=== PATIENT | male | born 1950 | race Caucasian/White ===

== ENCOUNTER 2023-03-07 21:32 | Inpatient (IN) | payer MEDICARE, SELFPAY ==
[2023-03-07 21:37] VITALS: BP 186/68; PULSE 71; RESP 20; TEMP 36.3; O2SAT 92
--- NOTE | 2023-03-07 21:45 | DI.RAD_ITS ---
Exam(s) XR HIP LT COMPLETE AP PELVIS XR FEMUR LT EXAM: XR HIP LT COMPLETE AP PELVIS CLINICAL HISTORY: fall/fx. TECHNIQUE: 2D digital imaging was performed. Two views. COMPARISON: CR,XR XR FEMUR LT from 03/07/2023 FINDINGS: Femur films limited by overlying material. BONES: Intertrochanteric fracture of the left femur with mild displacement. No additional fractures. No bony destructive lesion is seen. JOINTS: No dislocation present. Hip joint spaces are maintained. Mild degenerative changes. The S I joints and pubic symphysis appear intact. SOFT TISSUE: No catheter projecting in the bladder. Vascular calcifications. IMPRESSION: Intertrochanteric fracture of the left femur. DATA REPOSITORY: RADIATION DOSE DELIVERED:
--- NOTE | 2023-03-07 22:20 | ED.GENADUL_ITS ---
HPI General Mode of arrival: EMS . Date/Time Provider Initiated Documentation: 03/07/23 21:44 . Limitations to Documentation: no limitations . Information obtained by: patient and EMS . History of Present Illness 72 year old M presents to the emergency department with the chief complaint of Left hip injury, described as severe, with intensity rated at 8. Quality is described as aching, and is localized to the left and lower extremity. Patient reports no radiation. Patient started experiencing this hour(s) (7) and it has been constant. Immobilization improves symptom(s), and Medication improves symptom(s), Movement worsens symptoms . Patient notes other (Left wrist pain). Patient did receive the following treatments prior to arrival, other (Worked up at [facility] ER) Related Data Home Medications Medication Instructions Recorded Confirmed amitriptyline 150 mg tablet 300 mg PO DAILY 03/07/23 03/07/23 atorvastatin 20 mg tablet 20 mg PO DAILY 03/07/23 03/07/23 blood sugar diagnostic (OneTouch 03/07/23 03/07/23 Verio test strips) budesonide 160 mcg-glycopyr 9 2 inh inhalation BID 03/07/23 03/07/23 mcg-formot 4.8 mcg/actuation HFA inhaler (Breztri Aerosphere) cyclobenzaprine 10 mg tablet 10 mg PO TID PRN 03/07/23 03/07/23 diltiazem HCl 240 mg capsule,24 240 mg PO DAILY 03/07/23 03/07/23 hr,extended release dulaglutide 0.75 mg/0.5 mL 0.75 mg subcut QWEEK 03/07/23 03/07/23 subcutaneous pen injector finasteride 5 mg tablet 5 mg PO DAILY 03/07/23 03/07/23 fluticasone propionate 50 1 spray intranasal DAILY 03/07/23 03/07/23 mcg/actuation nasal spray,suspension (Allergy Relief (fluticasone)) furosemide 40 mg tablet 40 mg PO DAILY 03/07/23 03/07/23 lisinopril 40 mg tablet 40 mg PO DAILY 03/07/23 03/07/23 metformin 1,000 mg tablet 1,000 mg PO BID 03/07/23 03/07/23 omeprazole 20 mg capsule,delayed 20 mg PO DAILY PRN 03/07/23 03/07/23 release tamsulosin 0.4 mg capsule 0.4 mg PO BID 03/07/23 03/07/23 tiotropium bromide 2.5 2 inh inhalation DAILY 03/07/23 03/07/23 mcg/actuation mist for inhalation (Spiriva Respimat) trazodone 50 mg tablet See Rx Instructions PO DAILY 03/07/23 03/07/23 Allergies Allergy/AdvReac Type Severity Reaction Status Date / Time duloxetine Allergy Verified 03/07/23 22:17 sertraline Allergy Verified 03/07/23 22:17 morphine AdvReac Verified 03/07/23 22:17 ivory soap AdvReac Uncoded 03/07/23 22:17 General Stated Complaint: Orthopedic KAMRAN: 3 Review of Systems Constitutional Constitutional: Denies fatigue, Denies headache(s) and Denies weakness Eyes Eyes: Denies change in vision ENT Ears, Nose, Mouth, and Throat: Denies headache(s) and Denies neck pain Cardiovascular Cardiovascular: Denies chest pain and Reports dyspnea (Chronic, COPD) Respiratory Respiratory: Reports dyspnea (Chronic, COPD) Gastrointestinal Gastrointestinal: Denies abdominal pain, Denies nausea and Denies vomiting Genitourinary Genitourinary: Denies difficulty urinating and Reports other (Patient with baseline indwelling Schilling catheter) Musculoskeletal Musculoskeletal: Reports deformity, Reports arthralgias, Denies neck pain, Denies numbness and Denies tingling Integumentary/Breasts Skin/Breast: Denies rash Neurologic Neurologic: Denies headache(s), Denies numbness, Denies tingling and Denies weakness Endocrine Endocrine: Denies fatigue Hematologic/Lymphatic Hematologic/Lymphatic: Denies easy bleeding and Denies easy bruising Exam Const General: cooperative, healthy appearing and in distress mild (Painful) Orientation: alert, awake and oriented x3 HENMT Head: normal to inspection, normocephalic and atraumatic Face and sinus: normal facial exam Mouth: moist mucous membranes Throat: posterior oropharynx normal Eyes Conjunctivae: conjunctivae normal Neck Neck: normal visual inspection, full ROM, trachea midline, supple and nontender Resp Effort & Inspection: normal respiratory effort and able to speak in complete sentences Auscultation: clear to auscultation bilaterally Cardio Rate: regular rate Rhythm: regular rhythm GI Palpation: soft, not firm, no guarding and nontender Back/Spine/Pelvis Back: No back tenderness Skin Rashes: rash noted Neuro General: patient alert, patient awake, patient oriented x3, moves all extremities and no focal motor deficits Cognition: normal cognition Speech: speech normal Sensory Exam: no sensory deficits noted Extrem General: capillary refill normal Elbow/forearm/wrist images: 2 1. Diffuse mild tenderness. Full range of motion. No bony point tenderness or deformity. Skin is intact. 2. Abrasion. Elbow otherwise unremarkable Other: Diffuse left hip pain to palpation. Skin is intact. The entire left leg is shortened and externally rotated. Normal pedal pulse and capillary refill. Knee is nontender. Psych Appearance: grossly normal Mental Status: mental status grossly normal Course Vital Signs Vital signs: Vital Signs Temperature 36.3 C L 03/07/23 21:37 Pulse 71 03/07/23 21:37 Respiratory Rate 20 03/07/23 21:37 Blood Pressure 186/68 H 03/07/23 21:37 Pulse Oximetry 92 03/07/23 21:37 Temperature 36.3 C L 03/07/23 21:37 Temperature Source Skin 03/07/23 21:37 Pulse 71 03/07/23 21:37 Respiratory Rate 20 03/07/23 21:37 Respiratory Effort Normal, Non-Labored 03/07/23 21:44 Blood Pressure 186/68 H 03/07/23 21:37 Blood Pressure Position Supine 03/07/23 21:37 Pulse Oximetry 92 03/07/23 21:37 Oxygen Delivery Method Nasal Cannula 03/07/23 21:37 Oxygen Flow Rate 2 03/07/23 21:37 Pain Level 8 03/07/23 21:37 Medical Decision Making This is a 72-year-old gentleman with a past medical history that includes COPD, former smoker, diabetes, hypertension, GERD, chronic indwelling Schilling catheter, BMI of 43.8, presenting from [facility] ER with known left hip fracture for admission to our hospitalist service and consult and surgery by our orthopedic team tomorrow. Patient had a mechanical fall earlier this afternoon, estimates he was on the ground for about 3 hours, then brought to [facility] via EMS. Workup included CBC, CMP, Fluvid swab, CT imaging of head and C-spine, x-rays of left hip and left wrist. Workup benign except for left hip fracture. A total of 2.5 mg IV Dilaudid already given. Temp oral temperature originally [place] [facility] [place] 87 degrees. Patient was warmed appropriately. Unfortunately [facility] did not have any orthopedic coverage. Subsequently they spoke with our orthopedic team, Dr. Hernadez. Patient was transferred ER to ER. Upon arrival of the patient to our ER, I was able to speak with our nursing supervisor orchard Nancy. She confirmed that Dr. Hernadez was aware of the transfer, recommended additional left hip and femur x-rays, n.p.o. after midnight, admission to our hospitalist team, and he would consult on the patient tomorrow and subsequently perform surgery although would need to confirm this once looking at the schedule. I did relay this information to the patient. Patient is requesting additional pain medication prior to additional x-rays. 2 mg IV Dilaudid provided. I also ordered a preop EKG. Records [place] [facility] WBC 10.40 hemoglobin 12.5 hematocrit 40.1 platelet count 213. Glucose 155 creatinine 1.03 GFR 71 calcium 8.9 sodium 141 potassium 4.8. Flu, RSV, COVID all negative. Case discussed with our hospitalist team, Dr. Anna, who was agreeable to admit the patient. Given workup already completed [place] [facility], I saw no indication to obtain additional laboratory values. No obvious distracting injuries. Patient to be n.p.o. after midnight, I provided admission bridging orders. Standard discharge and return precautions were provided. Patient understands, is agreeable to this plan, and has no additional questions or concerns upon discharge. This documentation was generated using [employer] dictation system, please disregard any oddities of phrase or misspellings. Medical Records Medical records reviewed: Yes I reviewed the patient's medical records. Quality:[facility] Health Related Social Needs: 2 No Data to Display [facility] Social History Smoking/Tobacco Use Status: Former Tobacco Use Tobacco: How many years used: 30 Smoking risk assessment performed?: Yes Alcohol Intake: former Drug use: Never Substance use type: does not use Housing: house Do you feel safe at home: Yes Do you feel safe in your relationship?: Yes Discharge Plan Disposition Patient Disposition: Admit to [facility] Discharge Details Chief Complaint: Orthopedic Clinical Impression: Closed left hip fracture Primary Care Provider: No,Local ED Provider: Roly Dong Iva Meds and New Rx's Prescriptions: No Action amitriptyline 150 mg tablet 300 mg PO DAILY Rx Instructions: at bedtime for depression and anxiety atorvastatin 20 mg tablet 20 mg PO DAILY Breztri Aerosphere 160-9-4.8 mcg/actuation HFA aerosol inhaler 2 inh inhalation BID cyclobenzaprine 10 mg tablet 10 mg PO TID PRN Rx Instructions: as needed for muscle spasm diltiazem HCl 240 mg capsule,extended release 24 hr 240 mg PO DAILY dulaglutide 0.75 mg/0.5 mL pen injector 0.75 mg subcut QWEEK finasteride 5 mg tablet 5 mg PO DAILY fluticasone propionate [Allergy Relief (fluticasone)] 50 mcg/actuation spray,suspension 1 spray intranasal DAILY Rx Instructions: administer into each nostril furosemide 40 mg tablet 40 mg PO DAILY lisinopril 40 mg tablet 40 mg PO DAILY metformin 1,000 mg tablet 1,000 mg PO BID omeprazole 20 mg capsule,delayed release(DR/EC) 20 mg PO DAILY PRN Rx Instructions: as needed for heart burn (DME) OneTouch Verio test strips Strip See Rx Instructions .ROUTE Rx Instructions: As directed tamsulosin 0.4 mg capsule 0.4 mg PO BID Spiriva Respimat 2.5 mcg/actuation mist 2 inh inhalation DAILY trazodone 50 mg tablet See Rx Instructions PO DAILY Rx Instructions: Take 2 to 4 tablets by mouth at bedtime for insomnia
[2023-03-07] MEDS: HYDROmorphone 2 MG/ML SYR IVP (22:44)
[2023-03-07 22:50] VITALS: BP 186/68; PULSE 71; RESP 20; O2SAT 94
--- NOTE | 2023-03-07 23:04 | HPE_ITS ---
Date of service: 03/07/23 Time of Service: 23:46 Assessment and Plan Assessment and plan (1) Hip fracture, left: Status: Acute Assessment and plan: Per report Dr. Hernadez was consulted in the [place] ED and aware of his transfer to our facility. He is NPO pending surgical repair 03/08 Hydromorphone prn for pain control for now. EKG ordered but not yet done. He has no chest pain so I don't see any indication to postpone surgery, but will review EKG to understand his cardiac status prior to surgery. Qualifiers: Encounter type: initial encounter Fracture type: closed Qualified Code(s): S72.002A - Fracture of unspecified part of neck of left femur, initial encounter for closed fracture (2) COPD (chronic obstructive pulmonary disease): Status: Chronic Assessment and plan: Not active, continue outatient preventive inhalers. (3) Type 2 diabetes mellitus: Status: Acute Assessment and plan: Of note he has been on long acting GLP-1 and last dose was Saturday. Per report A1c this month was in pre-diabetic range. Holding GLP-1, but anesthesia should be aware. Will continue metformin as long as renal function stable. Add in long acting insulin if sugars running high. (4) BPH loc w urin obs/LUTS: Status: Acute Assessment and plan: Continue tamsulosin and finasteride, has chronic vergara. (5) Hypertension: Status: Chronic Assessment and plan: Given BP running high, will not hold morning lisninopril unless preferred by anesthesia. Holding daily furosemide. (6) Wrist pain, acute: Status: Acute Assessment and plan: Negative XR at [facility] [place]. Monitor. (7) GERD (gastroesophageal reflux disease): Assessment and plan: continue outpatient PPI (8) DVT prophylaxis: Status: Acute Assessment and plan: mechanical for now, post operative DVT prophylaxis per orthopedics. (9) Discharge planning issues: Status: Acute Assessment and plan: Pending surgery. Physical therapy/rehab recommendations per ortho post-op. History of Present Illness History of Present Illness Chief Complaint: fall, hip pain Narrative: 72 year old M with COPD, hypertension, BPH with indwelling vergara catheter, and type 2 diabetes who presented initially to the [facility] ED after he slipped and fell on his left side. He was transferred from [facility] to [facility] ED due to lack of orthopedics coverage at [facility]. Fall occurred about 1:30pm. 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 He missed a step and fell on his left side. He felt fine before the fall and never had weakness, dizziness, chest pain, or palpitations leading up to the fall. He could not get up and laid on the concrete for 3 hours until his came home. Review of Systems Constitutional Constitutional: Denies anorexia, Denies chills, Denies fever(s), Reports lethargy and Denies weakness Eyes Eyes: Denies change in vision and Denies irritation ENT Ears, Nose, Mouth, and Throat: Denies dizziness, Denies nasal congestion, Denies nasal discharge and Denies sore throat Cardiovascular Cardiovascular: Denies chest pain, Denies syncope, Denies lightheadedness, Denies palpitations and Denies orthopnea Respiratory Respiratory: Denies cough, Denies excessive phlegm production and Denies wheezing Gastrointestinal Gastrointestinal: Denies abdominal pain, Denies change in stool character, Denies heartburn, Denies diarrhea, Denies nausea and Denies vomiting Genitourinary Genitourinary: Denies hematuria, Denies dysuria and Denies urinary incontinence Musculoskeletal Comments: wrist also hurts after fall Integumentary/Breasts Skin/Breast: Denies rash and Denies skin ulcer Neurologic Neurologic: Denies confusion, Denies dizziness, Denies syncope, Denies sensory deficit and Denies weakness Psychiatric Psychiatric: Denies confusion and Denies mood swings Endocrine Endocrine: Denies palpitations Hematologic/Lymphatic Hematologic/Lymphatic: Denies easy bleeding Allergic/Immunologic Allergic/Immunologic: Denies wheezing PFSH All Active Problems (Updated 03/08/23 @ 00:43 by Nehemiah Anna) Wrist pain, acute (Acute) Discharge planning issues (Acute) DVT prophylaxis (Acute) Hypertension (Chronic) BPH loc w urin obs/LUTS (Acute) Type 2 diabetes mellitus (Acute) COPD (chronic obstructive pulmonary disease) (Chronic) Hip fracture, left (Acute) Medical History (Updated 03/08/23 @ 00:43 by Nehemiah Anna) GERD (gastroesophageal reflux disease) Surgical History (Updated 03/08/23 @ 00:14 by Nehemiah Anna) History of cerebral aneurysm repair History of gastric bypass Family History Sister Cerebral aneurysm Social History (Updated 03/08/23 @ 00:16 by Nehemiah Anna) Smoking/Tobacco Use Status: Former Tobacco Use Tobacco: How many years used: 30 Smoking risk assessment performed?: Yes Alcohol Intake: former Drug use: Never Substance use type: does not use Housing: house Do you feel safe at home: Yes Do you feel safe in your relationship?: Yes Additional Social history: Lives in [place], [place] with Susie. 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 Meds Allergies and Home Medications Allergies Allergy/AdvReac Type Severity Reaction Status Date / Time duloxetine Allergy Verified 03/07/23 22:17 sertraline Allergy Verified 03/07/23 22:17 morphine AdvReac Verified 03/07/23 22:17 ivory soap AdvReac Uncoded 03/07/23 22:17 Home Medications Medication Instructions Recorded Confirmed Type amitriptyline 150 mg tablet 300 mg PO DAILY 03/07/23 03/07/23 History atorvastatin 20 mg tablet 20 mg PO DAILY 03/07/23 03/07/23 History blood sugar diagnostic (OneTouch 03/07/23 03/07/23 History Verio test strips) budesonide 160 mcg-glycopyr 9 2 inh inhalation BID 03/07/23 03/07/23 History mcg-formot 4.8 mcg/actuation HFA inhaler (Breztri Aerosphere) cyclobenzaprine 10 mg tablet 10 mg PO TID PRN 03/07/23 03/07/23 History diltiazem HCl 240 mg capsule,24 240 mg PO DAILY 03/07/23 03/07/23 History hr,extended release dulaglutide 0.75 mg/0.5 mL 0.75 mg subcut QWEEK 03/07/23 03/07/23 History subcutaneous pen injector finasteride 5 mg tablet 5 mg PO DAILY 03/07/23 03/07/23 History fluticasone propionate 50 1 spray intranasal DAILY 03/07/23 03/07/23 History mcg/actuation nasal spray,suspension (Allergy Relief (fluticasone)) furosemide 40 mg tablet 40 mg PO DAILY 03/07/23 03/07/23 History lisinopril 40 mg tablet 40 mg PO DAILY 03/07/23 03/07/23 History metformin 1,000 mg tablet 1,000 mg PO BID 03/07/23 03/07/23 History omeprazole 20 mg capsule,delayed 20 mg PO DAILY PRN 03/07/23 03/07/23 History release tamsulosin 0.4 mg capsule 0.4 mg PO BID 03/07/23 03/07/23 History tiotropium bromide 2.5 2 inh inhalation DAILY 03/07/23 03/07/23 History mcg/actuation mist for inhalation (Spiriva Respimat) trazodone 50 mg tablet See Rx Instructions PO DAILY 03/07/23 03/07/23 History Exam Narrative Exam Narrative: GEN: Alert and oriented, pleasant and cooperative, gives linear history. No acute distress at rest. HEENT: Head atraumatic. Conjunctiva clear, no icterus. PEERL, EOMI. no rhinorrhea. MMM, OP benign. Neck is supple with no masses or lymphadenopathy, trachea midline LUNGS: CTAB with normal effort CV: RRR with 1/6 systolic murmur audible thorughout, gallops, or rubs. ABD: +BS, soft, NT/ND EXT: no cyanosis, clubbing. Trace nate ankle edema. legs not tender to palpation MSK: No joint redness or swelling. left leg shortened and externally rotated. NEURO: CN 2-12 grossly intact. Normal movement of 4 extremities (including distal left foot). Normal speech and coordination. no tremor. SKIN: No rashes or open wounds. Blackheads around orbits PSYCH: normal mood and affect, normal thought process. Results Imaging Additional studies: CT head/neck normal XR wrist left 3+ views: no fracture. XR left hip: Acute, nondisplaced comminuted partially distracted intertrochanteric fracture Labs Labs: CBC, BMP from [facility] reviewed. Hgb 12.5, HCT 40.1. Creatining 1.03, glucose 155, normal lytes. Flu/COVID negative. Last Vital Signs Temp 36.3 C L 03/07/23 21:37 Pulse 71 03/07/23 22:50 Resp 20 03/07/23 22:50 BP 186/68 H 03/07/23 22:50 Pulse Ox 94 03/07/23 22:50 Time Spent Time spent with Patient: 55-74 minutes Time was spent: preparing to see the patient(eg.review tests), obtaining and/or reviewing separately otained hiistory, ordering medications,tests, procedures, referring, communicating with other health skin care specialist, indepentently interpreting results and counseling the patient
[2023-03-07 23:23] VITALS: BP 180/90; PULSE 63; RESP 16; TEMP 36.8; O2SAT 95
--- NOTE | 2023-03-07 23:34 | DI.VRAD_ITS ---
PROCEDURE INFORMATION: Exam: XR Left Femur Exam date and time: 03/07/2023 10:50 PM Age: 72 years old Clinical indication: Injury or trauma; Fall; Blunt trauma; Hip and thigh or upper leg; Left; Additional info: Fall/ hip FX. Transfer PT TECHNIQUE: Imaging protocol: Radiologic exam of the left femur. Views: 2 views. COMPARISON: CR XR HIP LT COMPLETE AP PELVIS 03/07/2023 10:50 PM FINDINGS: Bones/joints: Acute intertrochanteric left femoral fracture with 15 mm distal distraction of the distal fracture fragment. No significant varus deformity. Remainder of the femur is intact. Soft tissues: Unremarkable. Vasculature: Atherosclerosis. IMPRESSION: Acute intertrochanteric left femoral fracture with 15 mm distal distraction of the distal fracture fragment. No significant varus deformity. Dictated and Authenticated by: Lucretia Ngo MD. Ordering:MICHAEL Dunham MD
--- NOTE | 2023-03-07 23:34 | DI.VRAD_ITS ---
PROCEDURE INFORMATION: Exam: XR Left Hip Exam date and time: 03/07/2023 10:50 PM Age: 72 years old Clinical indication: Injury or trauma; Fall; Fracture of pelvis \T\ hip; Left; Traumatic fracture; Neck of femur; Not specified; Additional info: Fall/ hip FX. Transfer PT TECHNIQUE: Imaging protocol: Radiologic exam of the left hip. Views: 2 or 3 views hip with pelvis when performed. COMPARISON: No relevant prior studies available. FINDINGS: Tubes, catheters and devices: Catheter projecting over the bladder expected position. Bones/joints: Acute intertrochanteric left femoral fracture with 15 mm distal distraction of the distal fracture fragment. No significant varus deformity. Soft tissues: Unremarkable. Vasculature: Atherosclerosis. IMPRESSION: 1. Acute intertrochanteric left femoral fracture with 15 mm distal distraction of the distal fracture fragment. No significant varus deformity. 2. Catheter projecting over the bladder expected position. Dictated and Authenticated by: Lucretia Ngo MD. Ordering:MICHAEL Dunham MD
[2023-03-08] VITALS (12 sets, daily range): BP systolic 126–175; BP diastolic 44–83; PULSE 54–62; RESP 12–20; TEMP 36.6–37.5; O2SAT 88–99; BMI 42.2
[2023-03-08] MEDS: Cyclobenzaprine 10 MG TAB PO ×2 (01:32→12:41)
[2023-03-08] MEDS: HYDROmorphone 2 MG/ML SYR IVP ×4 (02:43→23:53)
[2023-03-08] MEDS: POTASSIUM CHLORIDE/D5-0.45NACL 1,000 ML 80 MEQ IV (02:43)
--- NOTE | 2023-03-08 07:14 | OCONE_ITS ---
Date of service: 03/08/23 Time of Service: 07:14 History of Present Illness Narrative: Patient reports that he fell around 1:30 pm on 03/07/23 after he missed a step on his porch. He reports that he fell onto his left side and had immediate discomfort in his left hip. He reports that he has also noticed discomfort in his left wrist and forearm. He reports that he did have some preexisting hip discomfort with stairs for about a year. He denies any preexisting hip discomfort with bending or at rest. History of COPD on home oxygen at night, obesity, HTN, CALLY, and diabetes, patient reports last A1c was about 6 1-2 weeks ago. History of bronchoscopy, left VATS total decortication, and pleural biopsy for recurrent pleural effusion at [facility] on 05/08/22. Assessment and Plan Assessment and plan (1) Displaced intertrochanteric fracture of left femur: Status: Acute Assessment and plan: 72-year-old male with left hip displaced intertrochanteric fracture Medical optimization for surgery, may have more challenging time mobilizing postoperatively due to diabetic neuropathy, morbid obesity almost 300 pounds BMI 42, and left wrist fracture. Thorough discussion about treatment for the left hip fracture, likely pre- existing hip arthritic pain and possibly trochanteric bursitis. Decision to proceed with surgery today left hip closed reduction and internal fixation, cephalomedullary nailing The risks, benefits, and alternatives were thoroughly discussed. Patient was counseled regarding pain management, expected postoperative course, and recovery timeline. All questions were answered. Informed consent was obtained. Agree and understand treatment plan. Follow up 10-14 days after surgery. Breathing comfortably on room air. No coughs or wheezes. 2+ left radial pulse. Regular rate and rhythm. (2) Fracture of left distal radius: Status: Acute Assessment and plan: Left distal radius fracture, minimally displaced intra-articular Need to remove IV after hip fracture surgery from this side. Assess swelling and apply splint versus bivalved cast. May weight-bear through the forearm, likely require platform walker. Repeat imaging within 1 week. Low threshold to obtain CT scan if any displacement occurs and proceed with ORIF surgery. [facility] All Active Problems (Updated 03/08/23 @ 14:37 by Christopher Hernadez MD) Fracture of left distal radius (Acute 03/07/23) Displaced intertrochanteric fracture of left femur (Acute 03/07/23) Wrist pain, acute (Acute) Discharge planning issues (Acute) DVT prophylaxis (Acute) Hypertension (Chronic) BPH loc w urin obs/LUTS (Acute) Type 2 diabetes mellitus (Acute) COPD (chronic obstructive pulmonary disease) (Chronic) Hip fracture, left (Acute) Medical History (Updated 03/08/23 @ 14:37 by Christopher Hernadez MD) GERD (gastroesophageal reflux disease) Surgical History (Updated 03/08/23 @ 00:14 by Nehemiah Anna) History of cerebral aneurysm repair History of gastric bypass Family History Sister Cerebral aneurysm Social History (Updated 03/08/23 @ 00:16 by Nehemiah Anna) Smoking/Tobacco Use Status: Former Tobacco Use (Quit 2004, 45 pack year history) Tobacco: How many years used: 30 Smoking risk assessment performed?: Yes Alcohol Intake: former Drug use: Never Substance use type: does not use Housing: house Do you feel safe at home: Yes Do you feel safe in your relationship?: Yes Additional Social history: Lives in [place], [place] with Susie. 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 No obvious skin lesions or ecchymosis about the left hip. Severe discomfort with attempted passive motion of the hip. Sensation intact to light touch throughout the lower extremity. 2+ pedal pulse. Small abrasion over the left olecranon. Demonstrates active elbow flexion and extension without any discomfort. No discomfort with palpation of the medial epicondyle, lateral epicondyle, or olecranon. No discomfort with palpation of the proximal ulna or radius. Moderate discomfort with active wrist flexion and extension. Moderate discomfort with palpation of the left distal radius and ulna. Results Last Vital Signs Temp 98.2 F 03/07/23 23:23 Pulse 63 03/07/23 23:23 Resp 16 03/07/23 23:23 BP 180/90 H 03/07/23 23:23 Pulse Ox 95 03/07/23 23:23 Imaging Imaging Studies: Pelvis left hip x-rays poor quality, no AP view obtained, but show intertrochanteric moderately displaced fracture likely involving the greater trochanter and about the basicervical level of the femoral neck. Ordered repeat hip x-ray for neutral to internally rotated AP view, but it is suboptimally positioned and penetrated. Left wrist x-rays ordered and reviewed showing minimally displaced intra- articular distal radius fracture involving the lunate facet
--- NOTE | 2023-03-08 08:00 | RT.EKG_ITS ---
APPROVED REPORT Exam: Resting ECG Reason for Exam: Pre-op Patient Location: I HR:62 bpm ECG Measurements Heart Rate 62 AXIS CA 162 P -43 QRSd 113 QRS -27 QT 445 T -26 QTc 452 Conclusion Sinus rhythm...normal P axis, V-rate 50- 99 Incomplete left bundle branch block...QRSd>110mS, terminal axis(-90,-1) Probable left ventricular hypertrophy...(RaVL+SV3)xQRSd >280 Baseline wander in lead(s) V4,V6 I have reviewed and interpreted ECG and agree with software generated interpretation.
[2023-03-08] MEDS: Tiotropium Bromide-Respimat 10 PUFF INH 2 PUFF IH (08:07)
[2023-03-08] MEDS: Budesonide/Formoterol 160/4.5 6 GM 60 PUFF INH IH ×2 (08:08→20:28)
--- NOTE | 2023-03-08 08:55 | DI.RAD_ITS ---
Exam(s) XR WRIST LT COMPLETE EXAM: XR WRIST LT COMPLETE CLINICAL HISTORY: Pain after fall. TECHNIQUE: 2D digital imaging was performed of the left wrist. Four images were obtained. PA, obli que and lateral views were obtained. COMPARISON: No exams were available for comparison FINDINGS: BONES: There is an acute comminuted longitudinally-oriented intra-articular fracture involving the me dial aspect of the distal radius. No bony destructive lesion is seen. JOINTS: The carpal bones are normally aligned. Degenerative changes are seen at the carpometacarpal j oints. SOFT TISSUE: There is an IV in place. IMPRESSION: Comminuted intra-articular fracture of the medial aspect of the distal radius. DATA REPOSITORY: RADIATION DOSE DELIVERED:
--- NOTE | 2023-03-08 08:55 | DI.RAD_ITS ---
Exam(s) XR HIP LT 1V EXAM: XR HIP LT 1V CLINICAL HISTORY: Need proper AP Lt hip fx. TECHNIQUE: 2D digital imaging was performed. One view, portable. COMPARISON: CR,XR XR HIP LT COMPLETE AP PELVIS from 03/07/2023 FINDINGS: The positioning is suboptimal. The exam is also under penetrated. The greater trochanter fracture i s not well profiled. DATA REPOSITORY: RADIATION DOSE DELIVERED:
[2023-03-08] MEDS: Lisinopril 20 MG TAB 40 MG PO (09:05)
[2023-03-08] MEDS: Normal Saline Flush 10 ML SYR IVP ×2 (09:06→12:41)
--- NOTE | 2023-03-08 10:07 | INITIAL_ITS ---
Date of service: 03/08/23 Time of Service: 10:17 Care Management Initial Assmt Initial Assessment REASON FOR HOSPITALIZATION:: Left Hip fracture PREVIOUS FUNCTIONAL STATUS/SOCIAL/FAMILY SUPPORTS:: Jairo lives in [place], [place] with his , Susie. They had a son who last year. Their daughter lives nearby, but Jairo reports that she has a problem with alcohol, which upsets him. They have two grandsons and a grand daughter. 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 He enjoys outdoor activities such as snowmobiling, hunting and riding horses. He is independent at baseline. CURRENT FUNCTIONAL STATUS:: Jairo was lying in bed when CM met with him. He stated that he has been in a lot of pain this morning, every time he is moved, due to his broken hip. He reported that he will go to the OR today for a fixation of the fracture. He expressed some nervousness about surgery, as he has had some negative experiences in hospitals, when he had to remain inpatient for a long time. MD arrived and set expectations that he will go to the OR this afternoon, and will be working with PT soon after, likely tomorrow morning. Jairo had some pain in his left wrist; MD stated that there were no obvious breaks, but that he would provide a soft brace in order to provide stability for him to use a walker, which he will likely need post surgically for 2-3 months. Jairo rep orted that he was recently told that he has low protein; MD recommended that he have protein supplements to help increase his protein, which will help him heal. Jairo stated that he is very independent and looks forward to being home. CM will continue to follow. ADVANCE DIRECTIVES:: Not on file at [facility]; Jairo reports that he has advanced directives on file at his PCP office, and his is his HCA. Has patient been provided with info about the portal/API?: Yes Did the patient sign up for the portal?: No CODE STATUS:: Full Code INSURANCE COVERAGE / FINANCIAL ISSUES:: JO ANN/CRYSTAL Mccabe MCR replacement CURRENT HOME/COMMUNITY SERVICES/EQUIPMENT:: O2 at night PRIMARY CARE PHYSICIAN:: Not local POTENTIAL DISCHARGE NEEDS:: Evaluations for further needs, follow up appointments. PATIENT/FAMILY EDUCATION NEEDS:: Review discharge instructions and limitations, discussion of self care needs including ask me three. ANTICIPATED BARRIERS TO DISCHARGE:: None identified TRANSPORTATION:: Via private vehicle by family. PLAN:: Jairo will go to the OR today. He will be evaluated by PT post surgically to help determine discharge planning considerations. He will follow up with Ortho and his discharge plan of care. CM will continue to follow. PFSH All Active Problems (Updated 03/08/23 @ 14:37 by Christopher Hernadez MD) Fracture of left distal radius (Acute 03/07/23) Displaced intertrochanteric fracture of left femur (Acute 03/07/23) Wrist pain, acute (Acute) Discharge planning issues (Acute) DVT prophylaxis (Acute) Hypertension (Chronic) BPH loc w urin obs/LUTS (Acute) Type 2 diabetes mellitus (Acute) COPD (chronic obstructive pulmonary disease) (Chronic) Hip fracture, left (Acute) Medical History (Updated 03/08/23 @ 14:37 by Christopher Hernadez MD) GERD (gastroesophageal reflux disease) Surgical History (Updated 03/08/23 @ 00:14 by Nehemiah Anna) History of cerebral aneurysm repair History of gastric bypass Family History Sister Cerebral aneurysm Social History (Updated 03/08/23 @ 00:16 by Nehemiah Anna) Smoking/Tobacco Use Status: Former Tobacco Use (Quit 2004, 45 pack year history) Tobacco: How many years used: 30 Smoking risk assessment performed?: Yes Alcohol Intake: former Drug use: Never Substance use type: does not use Housing: house Do you feel safe at home: Yes Do you feel safe in your relationship?: Yes Additional Social history: Lives in [place], [place] with Susie. 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
[2023-03-08] MEDS: Finasteride 5 MG TAB PO (13:51)
[2023-03-08] MEDS: Tamsulosin 0.4 MG CAPCR PO ×2 (13:52→20:33)
[2023-03-08] MEDS: dilTIAZem CD 120 MG CAPCR 240 MG PO (13:52)
--- NOTE | 2023-03-08 14:16 | ANES.PREOP_ITS ---
General Info Date of Service Date Performed: 03/08/23 Height: 5 ft 10 in Weight: 133.356 kg Body Mass Index (BMI): 42.2 Surgical Procedure: Operation Date: 03/08/23 15:45 Proposed Procedure Side Surgeon p Hip TFNA Short Left Christopher Hernadez MD Meds Allergies and Home Medications Allergies Allergy/AdvReac Type Severity Reaction Status Date / Time duloxetine Allergy Verified 03/07/23 22:17 sertraline Allergy Verified 03/07/23 22:17 morphine AdvReac Verified 03/07/23 22:17 ivory soap AdvReac Uncoded 03/07/23 22:17 Home Medication Medication Instructions Recorded amitriptyline 150 mg tablet 300 mg PO DAILY 03/07/23 atorvastatin 20 mg tablet 20 mg PO DAILY 03/07/23 blood sugar diagnostic (OneTouch 03/07/23 Verio test strips) budesonide 160 mcg-glycopyr 9 2 inh inhalation BID 03/07/23 mcg-formot 4.8 mcg/actuation HFA inhaler (Breztri Baitianshiphere) cyclobenzaprine 10 mg tablet 10 mg PO TID PRN 03/07/23 diltiazem HCl 240 mg capsule,24 240 mg PO DAILY 03/07/23 hr,extended release dulaglutide 0.75 mg/0.5 mL 0.75 mg subcut QWEEK 03/07/23 subcutaneous pen injector finasteride 5 mg tablet 5 mg PO DAILY 03/07/23 fluticasone propionate 50 1 spray intranasal DAILY 03/07/23 mcg/actuation nasal spray,suspension (Allergy Relief (fluticasone)) furosemide 40 mg tablet 40 mg PO DAILY 03/07/23 lisinopril 40 mg tablet 40 mg PO DAILY 03/07/23 metformin 1,000 mg tablet 1,000 mg PO BID 03/07/23 omeprazole 20 mg capsule,delayed 20 mg PO DAILY PRN 03/07/23 release tamsulosin 0.4 mg capsule 0.4 mg PO BID 03/07/23 tiotropium bromide 2.5 2 inh inhalation DAILY 03/07/23 mcg/actuation mist for inhalation (Spiriva Respimat) trazodone 50 mg tablet See Rx Instructions PO DAILY 03/07/23 Current Visit Medications: Current Medications Generic Name Dose Route Start Last Admin Trade Name Freq PRN Reason Stop Dose Admin Amitriptyline HCl 300 mg 03/08/23 22:00 Amitriptyline 50 Mg Tab PO HS [facility] Atorvastatin Calcium 20 mg 03/08/23 08:30 03/08/23 09:28 Atorvastatin 20 Mg Tab PO Not Given DAILY [facility] Budesonide/Formoterol Fumarate 2 puff 03/08/23 08:30 03/08/23 08:08 Budesonide/Formoterol 160/4.5 6 Gm 60 Puff Inh IH 2 puffs BID [facility] Administration Cyclobenzaprine HCl 10 mg 03/07/23 23:01 03/08/23 12:41 Cyclobenzaprine 10 Mg Tab PO 10 mg TID PRN Administration Dextrose 0 gm 03/07/23 23:05 Glucose Oral Gel 15 Gm/37.5 Gm Tube PO DIRECTED PRN Dextrose/Water 0 gm 03/07/23 23:05 Dextrose 50%-Water 25 Gm/50 Ml Syr IVP DIRECTED PRN Diltiazem HCl 240 mg 03/08/23 08:30 03/08/23 13:52 Diltiazem Cd 120 Mg Capcr PO 240 mg DAILY [facility] Administration Finasteride 5 mg 03/08/23 08:30 03/08/23 13:51 Finasteride 5 Mg Tab PO 5 mg DAILY [facility] Administration Fluticasone Propionate 0 gm 03/08/23 08:30 03/08/23 09:29 Fluticasone Nasal [place] 16 Gm Btl NS Not Given DAILY [facility] Hydromorphone HCl 2 mg 03/07/23 23:20 03/08/23 13:17 Hydromorphone 2 Mg/Ml Syr IVP 2 mg Q4H PRN PRN Administration Potassium Chloride/Sodium Chloride 1,000 mls @ 80 mls/hr 03/08/23 00:45 03/08/23 02:43 Kcl 10meq/D5-0.45% Nacl IV 80 mls/hr INFUSION [facility] Administration IV Miscellaneous Supplies 1 each 03/07/23 22:00 Iv Access-Emergency Dept IV DIRECTED [facility] Insulin Aspart 0 units 03/08/23 06:00 03/08/23 12:08 Insulin Aspart 300 Units/3 Ml Pen SC Not Given Q6H [facility] Protocol Lisinopril 40 mg 03/08/23 08:30 03/08/23 09:05 Lisinopril 20 Mg Tab PO 40 mg DAILY [facility] Administration Metformin HCl 1,000 mg 03/08/23 08:00 03/08/23 09:29 Metformin 500 Mg Tab PO Not Given BID@0800,1700 [facility] Omeprazole 20 mg 03/07/23 23:01 Omeprazole 20 Mg Capcr PO DAILY PRN Sodium Chloride 0 ml 03/07/23 21:59 03/08/23 12:41 Normal Saline Flush 10 Ml Syr IVP 20 ml PRN PRN Administration Sodium Chloride 0 ml 03/08/23 08:30 03/08/23 09:06 Normal Saline Flush 10 Ml Syr IVP 20 ml BID [facility] Administration Sodium Chloride 0 ml 03/07/23 21:59 Normal Saline 10 Ml Vial IJ DIRECTED PRN Tamsulosin HCl 0.4 mg 03/08/23 08:30 03/08/23 13:52 Tamsulosin 0.4 Mg Capcr PO 0.4 mg BID [facility] Administration Tiotropium Dodge 2 puff 03/08/23 08:30 03/08/23 08:07 Tiotropium Dodge-Respimat 10 Puff Inh IH 2 puffs DAILY [facility] Administration Trazodone HCl 100 - 200 mg 03/08/23 22:00 Trazodone 50 Mg Tab PO HS [facility] PFSH Active Problems Active Problems: Problem Status Onset Code Displaced intertrochanteric fracture of left femur 03/07/23 S72.142A Wrist pain, acute M25.539 Discharge planning issues Z02.9 DVT prophylaxis Z29.9 Hypertension I10 BPH loc w urin obs/LUTS N40.1 Type 2 diabetes mellitus E11.9 COPD (chronic obstructive pulmonary disease) J44.9 Hip fracture, left S72.002A Medical History Medical History (Updated 03/08/23 @ 07:16 by Christopher Hernadez MD) GERD (gastroesophageal reflux disease) Surgical History Surgical History (Updated 03/08/23 @ 00:14 by Nehemiah Anna) History of cerebral aneurysm repair History of gastric bypass Tobacco Smoking/Tobacco Use Status: Former Tobacco Use (Quit 2004, 45 pack year history) Alcohol Alcohol Intake: former Substance Use Substance use: Never Substance use type: does not use Vital Signs and Lab Results Vital Signs Most Recent Vital Signs in EMR: Most Recent Vital Signs Temp Pulse Resp BP Pulse Ox 37.5 C 62 18 175/83 H 97 03/08/23 07:29 03/08/23 07:29 03/08/23 07:29 03/08/23 07:29 03/08/23 08:05 Point of Care Results Point of Care Results: Finger Stick Blood Glucose 151 03/08/23 11:53 Lab Results Blood Type / Crossmatch: No Data to Display Complete Blood Count: No Data to Display Complete Metabolic Panel: No Data to Display Liver Function Panel: No Data to Display Coagulation Panel: No Data to Display Cardiac Panel: No Data to Display Arterial Blood Gas: No Data to Display Venous Blood Gas: No Data to Display Pancreas Panel: No Data to Display Thyroid Panel: No Data to Display Infectious Disease: No Data to Display Blood Cultures: No Data to Display Toxicology Panel: No Data to Display Imaging and Studies Imaging and Studies Study information below may be from another EMR and interpreted by another provider. Please see original notes in EMR for more complete details. EKG Summary: 03/08/2023: Exam: Resting ECG Reason for Exam: Pre-op Patient Location: I HR:62 bpm ECG Measurements Heart Rate 62 AXIS IA 162 P -43 QRSd 113 QRS -27 QT 445 T-26 QTc 452 Conclusion Sinus rhythm...normal P axis, V-rate 50- 99 Incomplete left bundle branch block...QRSd>110mS, terminal axis(-90,-1) Probable left ventricular hypertrophy...(RaVL+SV3)xQRSd >280 Baseline wander in lead(s) V4,V6 I have reviewed and interpreted ECG and agree with software generated interpretation. Echocardiogram Summary: 04/17/2022 ([facility] [place], per Epic report): EF 59%, mild aortic stenosis (mean gradient 13 mmHg), LA severely dilated Anesthesia Assessment and Plan Anesthesia History Personal History: No History of Anesthesia Complications Family History: No Family History of Anesthesia Complications Exercise Tolerance Exercise Tolerance: Metabolic Equivalents<4 Cardiac & Pulmonary Exam Cardiac Exam: Normal S1/S2 Heart Sounds and Heart Murmur Present (Known per patient, longstanding) Pulmonary Exam: Other (Distant lung conti, difficult to auscultate lung sounds) Implantable Cardiac Device Does patient have a Pacemaker or an ICD?: No Airway Exam Known Difficult Airway: No Mallampati Class: 3 Mouth Opening: Normal (> 3cm) Thyromental Distance: Greater than 3 cm Facial Hair: Full Cline Neck Range of Motion: Full ROM Neck Circumference: Thick Teeth Condition: Edentulous ASA Classification ASA Score: ASA 4 Emergency Case?: No NPO Status NPO Status: NPO Clears >2 hours, Solids >8 hours Anesthesia Plan Resuscitation Status: Full Code Anesthesia Technique: General Anesthesia Airway Planned: Endotracheal Tube Monitors Used: Standard Monitors and SedLine Preoperative Comments:: 72 y/o male with HTN, DM, HLD, CALLY (unable to tolerate CPAP and wears 2L oxygen at night), Severe CALLY, Obesity Hypoventilation Syndrome, Depression, S/p crani/aneurysm clipping 2004, S/P gastric bypass and VATS 2022 for recurrent left pleural effusion.
--- NOTE | 2023-03-08 15:06 | ROE_ITS ---
Date of service: 03/08/23 Time of Service: 15:00 Operative Note Operative Note DATE OF PROCEDURE: 03/08/23 PRE-OP DIAGNOSIS: 1. Displaced Left hip intertrochanteric fracture 2. Minimally displaced Left intra-articular distal radius fracture POST-OP DIAGNOSIS: same PROCEDURE: 1. Left hip intramedullary nail, CPT #47317 2. Closed treatment of distal radius fracture without manipulation, CPT #98651 SURGEON: Christopher Hernadez VENEER GLUE JOINTER FEEDBACK: Nicho Swartz ANESTHESIA TYPE: Local By Surgeon and General LMA/ETT Refer to Anesthesia Record ESTIMATED BLOOD LOSS: 30 COMPLICATIONS: None Patient was transported to: PACU Patient's condition: stable Implants: Synthes TFNA [id number] 130 deg, 115 mm TFNA helical blade, 42 mm 5.0mm distal locking screw Indications: Please see medical record for details Procedure Description: In the operating room, general anesthesia was induced. The patient was transferred and positioned supine on the fracture table. All bony prominences were well padded. The injured left wrist's IV was removed once establishing reliable access on the contralateral right forearm. Bandage was applied and the left wrist was secured with a volar resting splint across the patient's chest with padding. Tranexamic acid and pre-operative antibiotics were administered. C-arm fluoroscopy was used to confirm appropriate provisional fracture reduction with traction and internal rotation. The correct patient, procedure, and side of the procedure were all verified prior to incision. The left hip was prepped and draped in the usual sterile fashion. Local anesthetic with epinephrine was infiltrated about the planned start point as well as later about the lateral entry site for cephalomedullary and distal locking screws. C-arm fluoroscopy was used to locate the appropriate start point for the guide wire on the tip of the greater trochanter. This guide wire was advanced centrally down the proximal femur to the level of the lessor trochanter. Lateral images confirmed appropriate start point on the trochanter. Next the incision was extended about the guide wire to accommodate the nailing jig and this incision was carried down through the fascia and spread apart for ease of future instrument passage. The entry reamer was inserted along with the soft tissue protection tube and this reamer was used to open the proximal femur. The entry reamer, soft tissue protector, and guidewire were removed from the proximal femur. The larger 12 mm diameter nail was initially selected given the large patient's stature and assembled on the back table to the jig and tested to ensure proper passage of the cephalomedullary drill. This implant was manually inserted into the proximal femur, but could not be advanced to the appropriate level in the proximal femur due to thick cortices and narrow canal. This nail was removed, and a regular 11 mm diameter nail was then assembled and inserted into the proximal femur, but also could not be advanced deep enough. The nail was removed, reaming ball-tipped jeancarlos inserted down the femur, and reaming done by 1 mm from 10 to 14 mm. There was significant chatter at 14 mm. The 11 mm nail was then inserted into the proximal femur and attempted to be advanced to best level for cephalomedullary fixation. It still hung up on the proximal femur, but was advanced just low enough for appropriate fixation although just high of the ideal center center point in the femoral head. The nail position and tip distally were all scrutinized on AP and lateral views, there was the thick cortices that had already been reamed as much as possible and probably a slight mismatch of the angle of the proximal femur relative to the nail that prevented further passage. Long nail smaller size was considered, but concerned about incarcerating reamers and difficulty passing along nail was real. Instead, the slightly high position of the nail in place was accepted owing to the excellent fracture alignment and once the guidewire was placed it was carefully directed into the central most portion of the femoral head in the subchondral fashion through another incision was made laterally to accommodate the cephalomedullary aiming tube and trochar, which were advanced down to bone. The depth gauge was used to measure the helical blade length accommodating for depth of guidewire insertion. Next, the drills were used to open the lateral cortex, drill over the wire, and the helical blade was advanced to the appropriate depth by gentle mallet blows. The set screw was engaged and backed off 180 degrees to allow for rotationally-controlled sliding and compression. The fracture was lightly compr essed appropriately via the buttress and compression nut on the jig and the setscrew was reengaged. The cephalomedullary aiming guide was removed. The distal locking screw guide was inserted through another small incision down the bone. The drill was used to drill for this static locking screw and measure the length. The appropriate length screw was then inserted bicortically. The jig was removed from the nail. Final AP and lateral fluoroscopic images were taken and confirmed appropriate fracture reduction and implant placement. Multiple views of the femoral head relative to the helical blade were used to confirm no joint penetration although the blade was 5 mm longer size than usual safe depth and attempt to find the best bone fixation slightly higher in the femoral head. All wounds were copiously irrigated. Deep layers were closed using 0 vicryl in an interrupted fashion. Subcutaneous tissue was closed using 2-0 monocryl in a buried interrupted fashion. Skin glue was applied to all incisions. Incisions were covered with Mepilex Band-Aids. The patient's left wrist was then removed from the temporary volar resting splint. PA and lateral x-rays confirmed nondisplaced to minimally displaced intra-articular fracture. No reduction was needed. An appropriately padded fiberglass short arm cast was then applied to the extremity. Once it was set, the cast saw was used to bivalve it on both the radial and ulnar sides given the acute fracture setting to accommodate potential swelling. The cast was then held in place with athletic tape proximally and distally. The patient awoke from anesthesia without complication and was transferred to the recovery room in stable condition.
--- NOTE | 2023-03-08 15:06 | W.PM.PROGNOT ---
Date of Service Date of service: 03/08/23 Time of Service: 17:44 Assessment and Plan Assessment and plan (1) Fracture of left distal radius: Status: Acute Assessment and plan: See below (2) Displaced intertrochanteric fracture of left femur: Status: Acute Assessment and plan: 73-year-old male postop day #0 status post Left hip IMN and Left wrist fracture short arm bivalved casting Complete 24 hours postoperative antibiotics Discontinue Schilling catheter postop day #1 Pain control-Multimodal Physical therapy: Weightbearing as tolerated left hip with assist device; weightbearing as tolerated left wrist through cast, consider platform walker. Cut/loosen athletic tape if left wrist cast becomes too tight due to swelling May start chemical DVT prophylaxis tomorrow assuming hemodynamically stable Continue mechanical DVT prophylaxis with SCDs and/or CARLOS hose Discharge when medically appropriate Follow-up with Dr. Hernadez outpatient [facility] in 2 to 3 weeks Appreciate medical management Exam Narrative Exam Narrative: Breathing, coughing, about 3 L nasal cannula Mild to moderate left hip and groin discomfort, less at the wrist Still waking up from anesthesia, demonstrates intact motor left hand and left foot Readily palpable left dorsalis pedis pulse Left hip dressings clean dry intact, thigh compartments soft, no significant edema or ecchymosis Left wrist in cast, no significant edema or ecchymosis Objective Last Vital Signs Temp 99.5 F 03/08/23 07:29 Pulse 62 03/08/23 07:29 Resp 18 03/08/23 07:29 BP 175/83 H 03/08/23 07:29 Pulse Ox 97 03/08/23 08:05 Time Spent with Patient Time Spent with Patient: <25 minutes Time was spent: preparing to see the patient(eg.review tests), obtaining and/or reviewing separately otained hiistory, ordering medications,tests, procedures, referring, communicating with other health respiratory care specialist and care coordination
[2023-03-08] MEDS: Lactated Ringers 1,000 ML 30 ML IV (15:21)
[2023-03-08] MEDS: Tranexamic Acid 1,000 MG/10 ML VIAL 1000 MG (15:30)
[2023-03-08] MEDS: Bupivacaine 0.25% Pres-Free 30 ML VIAL (16:24)
[2023-03-08] MEDS: EPINEPHrine 10 MG/10 ML ML (16:24)
--- NOTE | 2023-03-08 16:30 | DI.RAD_ITS ---
Exam(s) XR HIP LT IN OR EXAM: XR HIP LT IN OR CLINICAL HISTORY: left hip fracture TECHNIQUE: 2D and realtime digital imaging was performed. CONTRAST MATERIAL: Refer to procedure report. COMPARISON: CR,XR XR HIP LT COMPLETE AP PELVIS from 03/07/2023 CR,XR XR FEMUR LT from 03/07/2023 CR XR HIP LT 1V from 03/08/2023 FINDINGS: Fluoroscopy was provided for Dr. Hernadez during the performance of a reduction and internal fixation of the left intertrochanteric fracture. Please refer to the procedure report for complete details. Ka,r=16.8 mGy IMPRESSION: RADIATION DOSE DELIVERED:
--- NOTE | 2023-03-08 17:13 | DI.RAD_ITS ---
Exam(s) XR WRIST LT LIMITED EXAM: XR WRIST LT LIMITED CLINICAL HISTORY: LEFT WRIST FRACTURE TECHNIQUE: 2D and realtime digital imaging was performed. CONTRAST MATERIAL: Refer to procedure report. COMPARISON: CR XR WRIST LT COMPLETE from 03/08/2023 FINDINGS: Fluoroscopy was provided for Dr. Satya humphrey during the evaluation of the distal radial fracture. Ple ase refer to the procedure report for complete details. Ka,r=0.04 mGy IMPRESSION: RADIATION DOSE DELIVERED:
--- NOTE | 2023-03-08 17:29 | W.PM.PROGNOT ---
Date of Service Date of service: 03/08/23 Time of Service: 17:29 Assessment and Plan Assessment and plan (1) Displaced intertrochanteric fracture of left femur: Status: Acute Assessment and plan: s/p ORIF intramedullary nailing done this afternoon by Dr. Hernadez, proceed w/ usual postop care of pulmonary toiletry, pain control and P.T., early mobilization Qualifiers: Encounter type: initial encounter Fracture type: closed Qualified Code(s): S72.142A - Displaced intertrochanteric fracture of left femur, initial encounter for closed fracture (2) Fracture of left distal radius: Status: Acute Assessment and plan: apparently the minimally displaced fracture of the intraarticular area did not require any reduction but a fiberglass short arm cast was applied and a swa was used to bivalve the cast on the radial and ulnar sides to allow for any soft tissue edema. Qualifiers: Encounter type: initial encounter Fracture type: closed Fracture morphology: unspecified fracture morphology Qualified Code(s): S52.502A - Unspecified fracture of the lower end of left radius, initial encounter for closed fracture (3) COPD (chronic obstructive pulmonary disease): Status: Chronic Assessment and plan: continue Spiriva and Symbicort while hospitalized along w/ use of prn DuoNeb aerosols. encourage cough and deep breathing. Qualifiers: COPD type: chronic bronchitis Chronic bronchitis type: simple Qualified Code(s): J41.0 - Simple chronic bronchitis (4) Hypertension: Status: Chronic Assessment and plan: continue home meds Qualifiers: Hypertension type: primary hypertension Qualified Code(s): I10 - Essential (primary) hypertension (5) Type 2 diabetes mellitus: Status: Acute Assessment and plan: resume diabetic heart healthy diet and change insulin coverage back to /hs using insulin sensitive scale Qualifiers: Diabetes mellitus care home insulin use: with care home use Diabetes mellitus complication status: without complication Qualified Code(s): E11.9 - Type 2 diabetes mellitus without complications; Z79.4 - MCC (current) use of insulin (6) GERD (gastroesophageal reflux disease): Assessment and plan: resume omeprazole 20 mg daily Qualifiers: Esophagitis presence: esophagitis presence not specified Qualified Code(s): K21.9 - Gastro-esophageal reflux disease without esophagitis (7) CALLY (obstructive sleep apnea): Assessment and plan: apply oxygen at night. he was intolerant to use of CPAP at home and he tells me that he was only borderline w/ regard to his need for it. (8) DVT prophylaxis: Status: Acute Assessment and plan: enoxaparin 40 mg SC while hospitalized, however, ortho may want to follow their own DVT schedule, i..e ASA 325 mg bid x 30 days, if he goes on this schedule then his omeprazole should be increased to 40 mg daily to prevent PUD Subjective Subjective Interval history since last seen: Patient was seen in PACU. He did well w/ his L. hip intramedullary nailing for his hip fracture as well as closed reduction of his left distal radius fracture. He has hx of COPD and CALLY and wears nasal NC but can not tolerate CPAP. I told him that he is going to need good pulmonary efforts post op to prevent atelectasis. Exam Narrative Exam Narrative: Pleasant elderly obese male who is lying upright in the PACU, stable vital signs Lungs: clear to ausculatation Heart: regular but bradycardic, no murmur or rub Abdomen: obese, soft, nontender Extremities: left forearm in cast/splint, fingers warm w/ good color Lower extremities: no edema or cyanosis, pulses intact Objective Last Vital Signs Temp 36.6 C 03/08/23 17:23 Pulse 54 L 03/08/23 17:23 Resp 12 03/08/23 17:23 BP 130/46 L 03/08/23 17:23 Pulse Ox 89 L 03/08/23 17:23 Time Spent with Patient Time Spent with Patient: 35-49 minutes Time was spent: preparing to see the patient(eg.review tests), ordering medications,tests, procedures, referring, communicating with other health acute care clinical nurse specialist, indepentently interpreting results, counseling the patient and care coordination
[2023-03-08] MEDS: Albuterol/Ipratropium 3 ML UPD VIAL UPD (17:37)
--- NOTE | 2023-03-08 17:45 | W.ANESPOSTOP ---
Postoperative Evaluation Date, Time and Location Date Performed: 03/08/23 Time Performed: 17:45 Patient Location: PACU Vital Signs Most Recent Imported Vital Signs: Most Recent Vital Signs Temp Pulse Resp BP Pulse Ox 36.6 C 54 L 13 150/48 H 99 03/08/23 17:38 03/08/23 17:38 03/08/23 17:38 03/08/23 17:38 03/08/23 17:38 Pain Score Most Recent Pain Score: Most Recent Pain Score Pain Level 0 03/08/23 17:38 Assessment Mental Status: Awake (Alert & Oriented to Patient Baseline) Airway and Respiratory Function: Patient has been admitted and is receiving care as an inpatient (Patient on O2. Came to PACU 88% prior to surgery. Will continue O2 to the floor to be weaned at their discretion. ) Cardiovascular Function: Hemodynamically Stable Hydration Status: Adequately Hydrated Nausea & Vomiting: No Nausea or Vomiting Pain: Pain is tolerable per patient Peripheral Nerve Block: Patient did not receive a nerve block
[2023-03-08] MEDS: ceFAZolin 1 GM/50 ML BAG IVPB (20:33)
[2023-03-08] MEDS: Insulin Aspart 300 UNITS/3 ML PEN SC (20:34)
[2023-03-08] MEDS: Amitriptyline 50 MG TAB 300 MG PO (21:01)
[2023-03-08] MEDS: traZODone 50 MG TAB PO (21:01)
[2023-03-08] MEDS: oxyCODONE 5 MG TAB PO (22:26)
[2023-03-09] VITALS (11 sets, daily range): BP systolic 103–146; BP diastolic 47–69; PULSE 54–77; RESP 16–20; TEMP 36.7–38; O2SAT 90–98
[2023-03-09] MEDS: Normal Saline Flush 10 ML SYR (00:14)
[2023-03-09] MEDS: Acetaminophen 500 MG TAB 1000 MG PO ×3 (03:03→20:03)
[2023-03-09] MEDS: ceFAZolin 1 GM/50 ML BAG IVPB ×2 (03:03→11:38)
[2023-03-09] MEDS: Naproxen 500 MG TAB PO (03:03)
[2023-03-09 06:54] LABS: Abs Immature Grans 0.05 10^3/uL (0.0-0.06); Absolute Basophil Count 0.02 10^3/uL (0.0-0.2); Absolute Eosinophil Count 0.02 10^3/uL (0.0-0.7); Absolute Lymphocyte Count 0.86 10^3/uL (1.2-3.4); Absolute Monocyte Count 0.76 10^3/uL (0.1-0.8); Absolute Neutrophil Count 8.19 10^3/uL (1.2-6.7); Basophils % 0.2; Eosinophils % 0.2; HCT 31.9 % (40.0-50.0); HGB 10.3 g/dL (13.5-17.5); Immature Grans % 0.5; Lymphocytes % 8.7; MCH 29.9 pg (27.0-33.0); MCHC 32.3 % (32.0-36.0); MCV 93 fL (80-95); MPV 10.8 fL (8.0-11.0); Monocytes % 7.7; Neutrophils % 82.7; Platelet Count 211 10^3/uL (130-400); RBC 3.44 10^6/uL (4.36-5.78); RDW 13.3 % (11.8-14.1); RDW-SD 45.2 fL
[2023-03-09 07:07] LABS: Anion Gap 7.4 mmol/L (3-11); BUN 31 mg/dL (7-18); CO2 27.6 mmol/L (21.0-32.0); CREATININE 1.6 mg/dL (0.70-1.30); Calcium 8.3 mg/dL (8.5-10.1); Chloride 102 mmol/L (98-107); Estimated GFR 45.78 (mL/min/1.73m2); Glucose 211 mg/dL (74-106); Potassium 4.8 mmol/L (3.5-5.1); Sodium 137 mmol/L (136-145)
[2023-03-09] MEDS: oxyCODONE 5 MG TAB PO ×2 (07:52→21:44)
[2023-03-09] MEDS: Sennosides/Docusate Sodium TAB 1 TAB PO ×2 (07:53→20:03)
[2023-03-09] MEDS: Tamsulosin 0.4 MG CAPCR PO ×2 (07:54→20:04)
[2023-03-09] MEDS: Finasteride 5 MG TAB PO (07:56)
[2023-03-09] MEDS: Atorvastatin 20 MG TAB PO (07:56)
[2023-03-09] MEDS: metFORMIN 500 MG TAB 1000 MG PO ×2 (07:56→16:35)
[2023-03-09] MEDS: Omeprazole 20 MG CAPCR PO ×2 (07:56→20:04)
[2023-03-09] MEDS: Enoxaparin 40 MG/0.4 ML SYR SC (08:01)
[2023-03-09] MEDS: Insulin Aspart 300 UNITS/3 ML PEN SC ×4 (08:02→23:57)
[2023-03-09] MEDS: Normal Saline Flush 10 ML SYR IVP (08:18)
[2023-03-09] MEDS: Budesonide/Formoterol 160/4.5 6 GM 60 PUFF INH IH ×2 (08:19→21:52)
[2023-03-09] MEDS: Tiotropium Bromide-Respimat 10 PUFF INH 2 PUFF IH (08:19)
--- NOTE | 2023-03-09 10:45 | IN_ITS ---
PT Notes Visit Reasons: Left hip fracture Inpatient Physical Therapy Evaluation Date: March 09, 2023 Referring Doctor: Dr. Christopher Hernadez PT Orders: PT CONSULT: Left hip fracture, left wrist fracture status post Ortho surgery Precautions: Weightbearing as tolerated left hip with assistance device, weightbearing as tolerated through left wrist, through past, fall risk Patient Profile/Admitting Diagnosis: Patient is a 72-year-old [id number] male who suffered a fall negotiating a step down from his shop near his home. Sustained left hip fracture and left distal radius fracture. Underwent ORIF intramedullary nailing left femur as well as receiving fiberglass cast secondary to left distal radius fracture with no surgical intervention necessary. PMHX: PFSH All Active Problems (Updated 03/08/23 @ 00:43 by Nehemiah Anna) Wrist pain, acute (Acute) Discharge planning issues (Acute) DVT prophylaxis (Acute) Hypertension (Chronic) BPH loc w urin obs/LUTS (Acute) Type 2 diabetes mellitus (Acute) COPD (chronic obstructive pulmonary disease) (Chronic) Hip fracture, left (Acute) Medical History (Updated 03/08/23 @ 00:43 by Nehemiah Anna) GERD (gastroesophageal reflux disease) History of cerebral aneurysm repair History of gastric bypass Surgical History (Updated 03/08/23 @ 00:14 by Nehemiah Anna) Medications: Home Medications Medication Instructions Recorded Confirmed Type amitriptyline 150 mg tablet 300 mg PO DAILY 03/07/23 03/07/23 History atorvastatin 20 mg tablet 20 mg PO DAILY 03/07/23 03/07/23 History blood sugar diagnostic (OneTouch 03/07/23 03/07/23 History Verio test strips) budesonide 160 mcg-glycopyr 9 2 inh inhalation BID 03/07/23 03/07/23 History mcg-formot 4.8 mcg/actuation HFA inhaler (Breztri Aerosphere) cyclobenzaprine 10 mg tablet 10 mg PO TID PRN 03/07/23 03/07/23 History diltiazem HCl 240 mg capsule,24 240 mg PO DAILY 03/07/23 03/07/23 History hr,extended release dulaglutide 0.75 mg/0.5 mL 0.75 mg subcut QWEEK 03/07/23 03/07/23 History subcutaneous pen injector finasteride 5 mg tablet 5 mg PO DAILY 03/07/23 03/07/23 History fluticasone propionate 50 1 spray intranasal DAILY 03/07/23 03/07/23 History mcg/actuation nasal spray,suspension (Allergy Relief (fluticasone)) furosemide 40 mg tablet 40 mg PO DAILY 03/07/23 03/07/23 History lisinopril 40 mg tablet 40 mg PO DAILY 03/07/23 03/07/23 History metformin 1,000 mg tablet 1,000 mg PO BID 03/07/23 03/07/23 History omeprazole 20 mg capsule,delayed 20 mg PO DAILY PRN 03/07/23 03/07/23 History release tamsulosin 0.4 mg capsule 0.4 mg PO BID 03/07/23 03/07/23 History tiotropium bromide 2.5 2 inh inhalation DAILY 03/07/23 03/07/23 History mcg/actuation mist for inhalation (Spiriva Respimat) trazodone 50 mg tablet See Rx Instructions PO DAILY 03/07/23 03/07/23 History Social History/Home Situation: Lives with in single level home with stairs upon entry. His indicates they are having a ramp fabricated in the next day or 2 and should be completed upon his discharge from hospital. Current Functional Limitations: Functional mobility, transfers and bed, transfer sit to stand, limited standing tolerance, unable to ambulate community distan niru, interrupted sleep Equipment Owned/DME: Chronic indwelling Schilling catheter, utilizes supplemental oxygen at home for sleep nighttime purposes Subjective: Patient states he is not sure if he is up for transferring to stand. Admits the pain medicine did help. Nursing states he was issued his pain medication 2 hours prior to evaluation. At rest he states his hip pain 5/10 and wrist pain 3/10. Objective: General Observation: Indwelling catheter Mental Status: Alert and oriented x 3 Pain: 5/10 left hip at rest, 8/10 in standing, 3/10 left wrist ROM: Right Upper Extremity: Within functional limits Left Upper Extremity: Within functional limits glenohumeral joint and elbow. Right Lower Extremity: Hip flexion 100 degrees active 105 active assisted, abduction 30 degrees, knee flexion and extension within functional limits. Left Lower Extremity: Left hip active assistive range of motion in supine 30 degrees limited due to pain. He does assume 80 degrees in sitting edge of bed, abduction 0 degrees active, 10 degrees active assisted limited due to pain. Internal/external rotation not tested. Knee flexion 95 degrees, extension 0 degrees. Strength: Right Upper Extremity: 4/5 glenohumeral joint flexion, abduction, internal/external rotation, 4+/5 elbow flexion and extension. Good winterizer. Left Upper Extremity: Glenohumeral joint flexion, abduction, internal and external rotation 4/5, 4/5 elbow flexion and extension. Right Lower Extremity: 4/5 hip flexion, abduction in sitting, knee flexion, knee extension, ankle inversion and eversion Left Lower Extremity: 3 -/5 hip flexion, 3+/5 knee extension (25 degree lag via a long arc quad in sitting), knee flexion 4 -/5, ankle inversion and eversion 4/5, ankle plantarflexion dorsiflexion 4+/5 Sensation: Reports intact sensation light touch bilateral lower extremities. Bed Mobility/Transfers: Supine to sit: Head of bed 60 degrees mod assist x 2 Sit to stand: To front wheel walker with platform for left upper extremity mod assist x 2 Stand to sit: From front wheel walker mod assist x 1 with verbal cues for hand placement on chair Gait: 5 feet with mod assist x 1 particularly for walker advancement and verbal cues for weightbearing through left forearm upon completion of evaluation patient was positioned in bedside chair with nursing notified. Balance: Static Sitting: Good Dynamic Sitting: Good Static Standing: Fair Dynamic Standing: Fair Special Tests: Mobility Limitations Standardized Measure [facility]-PAC 6 clicks Basic Mobility Inpatient Short Form: Raw Score: 12 Standardized Score: [] CMS Score: 69% Informed Consent/Education: Patient instructed in purpose of PT consult and plan of care. Assessment: Patient is a 72year old male referred to physical therapy services with the diagnosis of status post ORIF intramedullary rodding left femur, status post distal radius fracture. Patient presents with clinical signs and symptoms consistent with above diagnosis, as demonstrated by the following impairment level findings: Joint mobility, muscle performance, range of motion and motor control associated with bony fracture. Impairments are contributing to the following functional limitations: AM-PAC score. Patient is assessed as a X Low 28968 [] Moderate 18714 [] High 76762 complexity based on the following: History: See above Examination: See above Presentation: Stable Decision Making: AM-PAC score Goals: Goals X1 week 1. Supine-Sit : Standby assist 2. Sit-Supine : Standby assist 3. Sit-Stand : To a front wheeled walker contact-guard x 1 4. Stand-Sit: From front wheel walker contact-guard x 1 5. Bed-Chair: With use of front wheel walker contact-guard x 1 6. Chair-Bed: Contact-guard x 1 with use of front wheel walker 7. Gait: 150 feet with front wheel walker and standby assist 8. Stairs: 4 with contact guard 9. Independent with home exercise program Plan of Care/Treatment Plan: 1-2x/day, 7 days/week x 1 week. Plan of care has been reviewed with the CHIEF INVESTIGATOR providing the service under Physical Therapy direction. Initiate Physical Therapy intervention for strengthening, bed mobility, transfers, gait, stairs, balance training, use of assistive device. DISCHARGE RECOMMENDATIONS: [] [] Home with no services [] X Home with services Home health PT vs SNF for continued rehabilitation [] Blood Donor Unit Assistant Care [] [] SNF versus LTC based on ability to participate and progress [] TREATMENT CODE/TIME: 1025?1055 direct one-on-one care initial evaluation [id number] Please sign an return this page within 30 days if you agree with the above POC. Thank you! Physician Signature Date [facility] Isrrael Olivier PT, DPT Disclaimer: This note was created using [employer] voice recognition software. It was reviewed for major content. However, there may be multiple small discrepancies and errors due to the voice recognition aspects of the software.
--- NOTE | 2023-03-09 11:01 | W.PM.PROGNOT ---
Date of Service Date of service: 03/09/23 Time of Service: 09:45 Assessment and Plan Assessment and plan (1) Fracture of left distal radius: Status: Acute Assessment and plan: Status post reduction and casting of the left distal radius fracture. The cast will allow him to place weight through the cast such as with a forearm platform and a walker. He may move his fingers as tolerated. Qualifiers: Encounter type: initial encounter Fracture type: closed Fracture morphology: unspecified fracture morphology Qualified Code(s): S52.502A - Unspecified fracture of the lower end of left radius, initial encounter for closed fracture (2) Displaced intertrochanteric fracture of left femur: Status: Acute Assessment and plan: Status post intervention nailing of the left femur. At this point things look well. No signs of complication. Weightbearing as tolerated with assistive devices. Work with physical therapy. He does have a history of some balance issues which she is concerned about which may make postoperative management challenging. May restart anticoagulation. Continue physical therapy. Qualifiers: Encounter type: initial encounter Fracture type: closed Qualified Code(s): S72.142A - Displaced intertrochanteric fracture of left femur, initial encounter for closed fracture Subjective Subjective Interval history since last seen: Jairo reports to be doing well. He has no significant pain. He does feel tired and somewhat absent-minded. No chest pain or shortness of breath. Exam Narrative Exam Narrative: Sitting up in the hospital bed. No acute distress. Alert. Brief evaluation left upper extremity shows a cast in position. He is able demonstrate full thumb extension and thumb flexion as well as finger extension and finger flexion. Evaluation of the left lower extremity shows Mepilex dressings in good position without any soilage. Minimal swelling. No ecchymosis. Minimal pain with left leg internal and external rotation. Objective Last Vital Signs Temp 36.8 C 03/09/23 07:39 Pulse 54 L 03/09/23 07:39 Resp 16 03/09/23 08:52 BP 103/47 L 03/09/23 07:39 Pulse Ox 91 L 03/09/23 09:21 Laboratory Results - last 24 hr 03/09/23 05:41 WBC 9.90 RBC 3.44 L Hgb 10.3 L Hct 31.9 L MCV 93 MCH 29.9 MCHC 32.3 RDW 13.3 Plt Count 211 MPV 10.8 Immature Gran % 0.5 Neutrophils % 82.7 Lymphocytes % 8.7 Monocytes % 7.7 Eosinophils % 0.2 Basophils % 0.2 Nucleated RBC % 0.0 Absolute Neutrophils 8.19 H Absolute Lymphocytes 0.86 L Absolute Monocytes 0.76 Absolute Eosinophils 0.02 Absolute Basophils 0.02 Sodium 137 Potassium 4.8 Chloride 102 Carbon Dioxide 27.6 Anion Gap 7.4 BUN 31 H Creatinine 1.6 H Est GFR (CKD-EPI 2020) 45.78 Glucose 211 H Calcium 8.3 L Time Spent with Patient Time Spent with Patient: <25 minutes Time was spent: preparing to see the patient(eg.review tests), indepentently interpreting results and counseling the patient
--- NOTE | 2023-03-09 14:34 | W.PM.PROGNOT ---
Date of Service Date of service: 03/09/23 Time of Service: 14:34 Assessment and Plan Assessment and plan (1) Displaced intertrochanteric fracture of left femur: Status: Acute Assessment and plan: s/p ORIF intramedullary nailing done by Dr. Hernadez, 03/08/2023. Continue with physical therapy. Patient may need short-term stay in a rehab center prior to returning home. I have put him on scheduled bowel meds to prevent constipation and put him on scheduled tylenol to control his pain. He also has prn oxycodone and naprosyn (which I will make scheduled) and he has prn iv dilaudid. Qualifiers: Encounter type: initial encounter Fracture type: closed Qualified Code(s): S72.142A - Displaced intertrochanteric fracture of left femur, initial encounter for closed fracture (2) Fracture of left distal radius: Status: Acute Assessment and plan: apparently the minimally displaced fracture of the intraarticular area did not require any reduction but a fiberglass short arm cast was applied and a swa was used to bivalve the cast on the radial and ulnar sides to allow for any soft tissue edema. Qualifiers: Encounter type: initial encounter Fracture morphology: unspecified fracture morphology Fracture type: closed Qualified Code(s): S52.502A - Unspecified fracture of the lower end of left radius, initial encounter for closed fracture (3) COPD (chronic obstructive pulmonary disease): Status: Chronic Assessment and plan: continue Spiriva and Symbicort while hospitalized along w/ use of prn DuoNeb aerosols. encourage cough and deep breathing. IS and acapella ordered. Will put him on scheduled DuoNeb treatments and use alberol prn. also added mucinex. Qualifiers: COPD type: chronic bronchitis Chronic bronchitis type: simple Qualified Code(s): J41.0 - Simple chronic bronchitis (4) Hypertension: Status: Chronic Assessment and plan: continue home meds Qualifiers: Hypertension type: primary hypertension Qualified Code(s): I10 - Essential (primary) hypertension (5) Type 2 diabetes mellitus: Status: Acute Assessment and plan: resume diabetic heart healthy diet and change insulin coverage back to ac/hs using insulin sensitive scale Qualifiers: Diabetes mellitus complication status: without complication Diabetes mellitus senior care insulin use: with senior care use Qualified Code(s): E11.9 - Type 2 diabetes mellitus without complications; Z79.4 - penitentiary (current) use of insulin (6) GERD (gastroesophageal reflux disease): Assessment and plan: resume omeprazole 20 mg daily Qualifiers: Esophagitis presence: esophagitis presence not specified Qualified Code(s): K21.9 - Gastro-esophageal reflux disease without esophagitis (7) CALLY (obstructive sleep apnea): Assessment and plan: apply oxygen at night. he was intolerant to use of CPAP at home and he tells me that he was only borderline w/ regard to his need for it. (8) DVT prophylaxis: Status: Acute Assessment and plan: enoxaparin 40 mg SC while hospitalized, however, ortho may want to follow their own DVT schedule, i..e ASA 325 mg bid x 30 days, if he goes on this schedule then his omeprazole should be increased to 40 mg daily to prevent PUD Subjective Subjective Interval history since last seen: Patient states his left hip does cause him some pain but that is getting better he feels that he has improved movement since he had his hip fixation. Does have a moist cough this afternoon. Nonproductive. Says he gets this every time in the winter. Currently does not have any I-S or acapella which I will order. I told him we will put him on scheduled DuoNeb treatments. Patient states he is having flatus but no bowel movement yet. He has a chronic indwelling Schilling due to chronic urinary retention. Urine looks concentrated dark yellow guerrero Exam Narrative Exam Narrative: Obese male sitting up in his chair no acute distress does have a moist cough.. Lungs scattered coarse rhonchi Heart is regular bradycardic no murmur rub Abdomen obese soft nontender normal bowel sounds. No peripheral edema Objective Last Vital Signs Temp 37.3 C 03/09/23 11:14 Pulse 63 03/09/23 11:14 Resp 18 03/09/23 11:14 BP 110/65 03/09/23 11:14 Pulse Ox 91 L 03/09/23 11:14 Laboratory Results - last 24 hr 03/09/23 05:41 WBC 9.90 RBC 3.44 L Hgb 10.3 L Hct 31.9 L MCV 93 MCH 29.9 MCHC 32.3 RDW 13.3 Plt Count 211 MPV 10.8 Immature Gran % 0.5 Neutrophils % 82.7 Lymphocytes % 8.7 Monocytes % 7.7 Eosinophils % 0.2 Basophils % 0.2 Nucleated RBC % 0.0 Absolute Neutrophils 8.19 H Absolute Lymphocytes 0.86 L Absolute Monocytes 0.76 Absolute Eosinophils 0.02 Absolute Basophils 0.02 Sodium 137 Potassium 4.8 Chloride 102 Carbon Dioxide 27.6 Anion Gap 7.4 BUN 31 H Creatinine 1.6 H Est GFR (CKD-EPI 2020) 45.78 Glucose 211 H Calcium 8.3 L Time Spent with Patient Time Spent with Patient: 25-34 minutes Time was spent: preparing to see the patient(eg.review tests), ordering medications,tests, procedures, referring, communicating with other health career education teacher, indepentently interpreting results, counseling the patient and care coordination
[2023-03-09] MEDS: Albuterol/Ipratropium 3 ML UPD VIAL UPD ×2 (15:26→20:05)
[2023-03-09] MEDS: Polyethylene Glycol 3350 17 GM PACKET PO (15:50)
[2023-03-09] MEDS: Cyclobenzaprine 10 MG TAB PO (20:03)
[2023-03-09] MEDS: guaiFENesin 600 MG TABCR PO (20:03)
[2023-03-09] MEDS: Ferrous Sulfate 325 MG TAB PO (20:03)
[2023-03-09] MEDS: Naproxen 500 MG TAB 250 MG PO (20:04)
[2023-03-09] MEDS: traZODone 50 MG TAB PO (21:44)
[2023-03-09] MEDS: Amitriptyline 50 MG TAB 300 MG PO (21:44)
[2023-03-10 03:22] VITALS: BP 117/66; PULSE 83; RESP 18; TEMP 36.5; O2SAT 92
[2023-03-10 06:22] LABS: Absolute Basophil Count 0.04 10^3/uL (0.0-0.2); Absolute Eosinophil Count 0.35 10^3/uL (0.0-0.7); Absolute Lymphocyte Count 1.55 10^3/uL (1.2-3.4); Absolute Monocyte Count 0.47 10^3/uL (0.1-0.8); Absolute Neutrophil Count 4.79 10^3/uL (1.2-6.7); Basophils % 0.5; Eosinophils % 4.8; HCT 29.7 % (40.0-50.0); HGB 9.8 g/dL (13.5-17.5); Immature Grans % 1.4; Lymphocytes % 21.2; MCH 30.4 pg (27.0-33.0); MCV 92 fL (80-95); Monocytes % 6.4; Neutrophils % 65.7; RBC 3.22 10^6/uL (4.36-5.78); RDW 13.6 % (11.8-14.1); RDW-SD 46.7 fL
[2023-03-10 06:27] LABS: Anion Gap 8.8 mmol/L (3-11); BUN 42 mg/dL (7-18); CO2 23.2 mmol/L (21.0-32.0); CREATININE 1.8 mg/dL (0.70-1.30); Calcium 8.1 mg/dL (8.5-10.1); Chloride 103 mmol/L (98-107); Estimated GFR 39.75 (mL/min/1.73m2); Glucose 134 mg/dL (74-106); Sodium 135 mmol/L (136-145)
[2023-03-10 06:52] LABS: Diff Comment Diff Reviewed; RBC Morphology Normal
[2023-03-10 07:30] VITALS: BP 139/72; PULSE 66; RESP 18; TEMP 36.5; O2SAT 89
[2023-03-10] MEDS: Insulin Aspart 300 UNITS/3 ML PEN SC ×4 (07:50→21:30)
[2023-03-10] MEDS: Tamsulosin 0.4 MG CAPCR PO ×2 (07:51→21:24)
[2023-03-10] MEDS: Enoxaparin 40 MG/0.4 ML SYR SC (07:51)
[2023-03-10] MEDS: Polyethylene Glycol 3350 17 GM PACKET PO (07:51)
[2023-03-10] MEDS: Ferrous Sulfate 325 MG TAB PO ×2 (07:52→21:25)
[2023-03-10] MEDS: dilTIAZem CD 120 MG CAPCR 240 MG PO (07:52)
[2023-03-10] MEDS: Naproxen 500 MG TAB 250 MG PO (07:52)
[2023-03-10] MEDS: Finasteride 5 MG TAB PO (07:52)
[2023-03-10] MEDS: metFORMIN 500 MG TAB 1000 MG PO ×2 (07:52→17:18)
[2023-03-10] MEDS: guaiFENesin 600 MG TABCR PO ×2 (07:52→21:25)
[2023-03-10] MEDS: Lisinopril 20 MG TAB 40 MG PO (07:53)
[2023-03-10] MEDS: Multivitamin TAB 1 TAB PO (07:53)
[2023-03-10] MEDS: Tiotropium Bromide-Respimat 10 PUFF INH 2 PUFF IH (07:54)
[2023-03-10] MEDS: Acetaminophen 500 MG TAB 1000 MG PO ×3 (07:54→20:37)
[2023-03-10] MEDS: Sennosides/Docusate Sodium TAB 1 TAB PO ×2 (07:54→21:25)
[2023-03-10] MEDS: Albuterol/Ipratropium 3 ML UPD VIAL UPD (07:54)
[2023-03-10] MEDS: Omeprazole 20 MG CAPCR PO ×2 (07:54→21:24)
[2023-03-10] MEDS: Budesonide/Formoterol 160/4.5 6 GM 60 PUFF INH IH ×2 (07:54→21:26)
[2023-03-10] MEDS: Atorvastatin 20 MG TAB PO (07:55)
--- NOTE | 2023-03-10 08:22 | W.PM.PROGNOT ---
Date of Service Date of service: 03/10/23 Time of Service: 07:50 Assessment and Plan Assessment and plan (1) Fracture of left distal radius: Status: Acute Assessment and plan: Status post casting. Continue to utilize as needed her forearm platform on the walker. Elevate is much as possible. Qualifiers: Encounter type: initial encounter Fracture type: closed Fracture morphology: unspecified fracture morphology Qualified Code(s): S52.502A - Unspecified fracture of the lower end of left radius, initial encounter for closed fracture (2) Displaced intertrochanteric fracture of left femur: Status: Acute Assessment and plan: Weightbearing as tolerated left lower extremity. Continue to work with physical therapy. The knee pain I think is muscular in nature. However, it is knee pain persist or pain about the hip limits his ability to work physical therapy is reasonable to recheck an x-ray to assure there is been no movement of the fracture after mobilization. He has previous x-rays of his femur which again reviewed which do include some edema do not show any signs of fracture distally. Qualifiers: Encounter type: initial encounter Fracture type: closed Qualified Code(s): S72.142A - Displaced intertrochanteric fracture of left femur, initial encounter for closed fracture Subjective Subjective Interval history since last seen: Jairo reportedly had a good night sleep last night. The medication will treat his pain and allow him to rest. He reports being able to mobilize yesterday which I encouraged him on. It would be difficult. Will take some time to make progress. He reports no other significant symptoms. He finds that his left hand hurts less when he has it elevated. He has reported some knee pain with certain hip motions which seems to improve once he gets moving. He denies any numbness or tingling. He occasionally feels that he has pain going down into the toe however. No issues with the right side. No numbness or tingling of the left hand. Exam Narrative Exam Narrative: Resting in the bed. No acute distress. Evaluation of the left arm shows full shoulder range of motion. He is able to fully move his fingers. Sensation intact light touch of the palmar, ulnar nerve. Evaluation the left lower extremity shows intact dressings, clean dry and intact. The thigh itself is minimally swollen. Thigh is compressible with minimal pain to palpation. However, he is in the resting externally rotated position. I go to mobilize his leg he does report pain about the knee. However, on subsequent attempts of internal/external rotation he finds declining of the pain. No significant pain with palpation about the distal femur. Mild pain over the IT band. No significant effusion or swelling seen around the knee. He has intact ankle dorsiflexion, plantarflexion, great toe extension, great toe flexion. Sensation intact to light touch over the deep and superficial peroneal nerve and tibial nerve. Objective Last Vital Signs Temp 36.5 C 03/10/23 07:30 Pulse 66 03/10/23 07:30 Resp 18 03/10/23 07:30 BP 139/72 03/10/23 07:30 Pulse Ox 89 L 03/10/23 07:30 Laboratory Results - last 24 hr 03/10/23 05:20 WBC 7.30 RBC 3.22 L Hgb 9.8 L Hct 29.7 L MCV 92 MCH 30.4 MCHC 33.0 RDW 13.6 Plt Count MPV Immature Gran % 1.4 Neutrophils % 65.7 Lymphocytes % 21.2 Monocytes % 6.4 Eosinophils % 4.8 Basophils % 0.5 Nucleated RBC % 0.0 Absolute Neutrophils 4.79 Absolute Lymphocytes 1.55 Absolute Monocytes 0.47 Absolute Eosinophils 0.35 Absolute Basophils 0.04 RBC Morphology Normal Sodium 135 L Potassium 5.0 Chloride 103 Carbon Dioxide 23.2 Anion Gap 8.8 BUN 42 H Creatinine 1.8 H Est GFR (CKD-EPI 2020) 39.75 Glucose 134 H Calcium 8.1 L Time Spent with Patient Time Spent with Patient: 25-34 minutes Time was spent: preparing to see the patient(eg.review tests), obtaining and/or reviewing separately otained hiistory, ordering medications,tests, procedures, indepentently interpreting results and counseling the patient
--- NOTE | 2023-03-10 09:20 | DI.RAD_ITS ---
Exam(s) XR KNEE LT 2V AP,LAT EXAM: XR KNEE LT 2V AP,LAT CLINICAL HISTORY: left knee pain, s/p fall and hip frx. TECHNIQUE: 2D digital imaging was performed of the left knee. Two images were obtained. AP and AP oblique views were obtained. COMPARISON: CR,XR XR FEMUR LT from 03/07/2023 FINDINGS: BONES: No acute fracture is present. No bony destructive lesion is seen. There is an enthesophyte at the superior patella. JOINTS: The knee is normally aligned. No significant joint effusion. No loose body. SOFT TISSUE: Vascular calcifications are present. IMPRESSION: No acute fracture. DATA REPOSITORY: RADIATION DOSE DELIVERED:
--- NOTE | 2023-03-10 09:26 | DI.VRAD_ITS ---
PROCEDURE INFORMATION: Exam: XR Left Knee Exam date and time: 03/10/2023 9:09 AM Age: 72 years old Clinical indication: Knee; Left; Patient HX: Pain/s/p hip FX TECHNIQUE: Imaging protocol: Radiologic exam of the left knee. Views: 1 or 2 views. COMPARISON: CR XR FEMUR LT 03/07/2023 10:50 PM FINDINGS: Bones/joints: Upper enthesophyte of the patella. No fracture. Central spurs are present. Soft tissues: Normal. Vasculature: Scattered atherosclerotic changes in the arterial vasculature. IMPRESSION: No acute process. Dictated and Authenticated by: Scott Ingram MD. Ordering:SADIA Gannon MD
[2023-03-10] MEDS: oxyCODONE 5 MG TAB PO ×2 (09:40→20:36)
--- NOTE | 2023-03-10 11:23 | NUR.NOTE ---
Nursing Note: Patient complained of pain, but on returning with pain medication, the patient was sleeping. Will continue to monitor.
[2023-03-10] MEDS: Normal Saline Flush 10 ML SYR IVP ×2 (12:08→21:25)
[2023-03-10] MEDS: HYDROmorphone 2 MG/ML SYR IVP (12:08)
--- NOTE | 2023-03-10 12:45 | PT.INTREAT ---
PT Notes Visit Reasons: Left hip fracture Date: 03/10/2023 PRECAUTIONS: Weightbearing as tolerated left hip with assistance device, weightbearing as tolerated through left wrist, through past, fall risk SUBJECTIVE: Pt in bed when approached for therapy tis morning, pt agrees to participating wit therapy OBJECTIVE: In dwelling catheter, Half forearm splint ?LUE? PAIN: 5/10 left hip at rest, 8/10 in standing, 3/10 left wrist VITALS: Monitored by Nursing Therapeutic Activities [id number] 30mins: Direct one-on-one instruction in dynamic activities to improve functional performance. ?? BED MOBILITY/TRANSFERS? Rolling L/R: min A Supine-sit: ?min A ? Sit-supine: min A? Sit-stand: Max A high bed? Stand-sit: ?CGA? Bed-Commode:? min A? Commode-bed: Steady lift Provided skilled cues and instruction on performance and technique throughout. Patient education regarding pacing and breathing techniques to maximize activity tolerance? ASSESSMENT:?Pt had a hard time getting up from commode due to pain on his hips, pt able to stand static 1min using platform walker before sitting on commode, pt able to pull himself up using Steady lift and was able to go back in bed using the Steady lift min A+3 PLAN: Continue with balance training, global strengthening and general conditioning for improved safety, mobility and activity tolerance until pt is safe for DC. TREATMENT CODE/TIME: [id number] 30mins (10:15-10:45am)
[2023-03-10 13:28] VITALS: BP 97/57; PULSE 59; RESP 18; O2SAT 91
[2023-03-10 14:51] VITALS: BP 102/57; PULSE 57; RESP 16; TEMP 36.5; O2SAT 89
--- NOTE | 2023-03-10 15:48 | PGE_ITS ---
Date of Service Date of service: 03/10/23 Time of Service: 15:49 Assessment and Plan Assessment and plan (1) Displaced intertrochanteric fracture of left femur: Status: Acute Assessment and plan: s/p ORIF intramedullary nailing done by Dr. Hernadez, 03/08/2023. Continue with physical therapy. Patient may need short-term stay in a rehab center prior to returning home. I have put him on scheduled bowel meds to prevent constipation and put him on scheduled tylenol to control his pain. He also has prn oxycodone and naprosyn (which I will make scheduled) and he has prn iv dilaudid. Correction on the naprosyn, I have dc'ed it today d/t KAREN (BUN 42 and creatinine 1.8), I have also ordered fluid bolus as his BP is borderline (also I have put his lisinopril on hold). Qualifiers: Encounter type: initial encounter Fracture type: closed Qualified Code(s): S72.142A - Displaced intertrochanteric fracture of left femur, initial encounter for closed fracture (2) Fracture of left distal radius: Status: Acute Assessment and plan: apparently the minimally displaced fracture of the intraarticular area did not require any reduction but a fiberglass short arm cast was applied and a swa was used to bivalve the cast on the radial and ulnar sides to allow for any soft tissue edema. Qualifiers: Encounter type: initial encounter Fracture type: closed Fracture morphology: unspecified fracture morphology Qualified Code(s): S52.502A - Unspecified fracture of the lower end of left radius, initial encounter for closed fracture (3) KAREN (acute kidney injury): Status: Acute Assessment and plan: BUN and creatinine rising at 42 and 1.8, lisinopril now on hold, will give judicious fluids and not restart his diuretics yet. repeat BMP in the a.m. Also stop Naprosyn. (4) COPD (chronic obstructive pulmonary disease): Status: Chronic Assessment and plan: continue Spiriva and Symbicort while hospitalized along w/ use of prn DuoNeb aerosols. encourage cough and deep breathing. IS and acapella ordered. Will put him on scheduled DuoNeb treatments and use alberol prn. also added mucinex. continue oxygen especially during the night or whenever napping as he has CALLY and will not wear a CPAP Qualifiers: COPD type: chronic bronchitis Chronic bronchitis type: simple Qualified Code(s): J41.0 - Simple chronic bronchitis (5) Hypertension: Status: Chronic Assessment and plan: not hypertensive here but rather he is borderline w/ BPw/ 102/57 and 97/57 and his BUN and creatinine are elevated at 42/1.8 therefore I have ordered his lisinopril to be held (unfortunately he already had it for this morning). I will give fluid bolus of LR this afternoon and recheck his BMP tomorrow. Qualifiers: Hypertension type: primary hypertension Qualified Code(s): I10 - Essential (primary) hypertension (6) Type 2 diabetes mellitus: Status: Acute Assessment and plan: on a diabetic heart healthy diet and change insulin coverage back to /hs using insulin sensitive scale Qualifiers: Diabetes mellitus skilled nursing insulin use: with skilled nursing use Diabetes mellitus complication status: without complication Qualified Code(s): E11.9 - Type 2 diabetes mellitus without complications; Z79.4 - intermediate (current) use of insulin (7) GERD (gastroesophageal reflux disease): Assessment and plan: resume omeprazole 20 mg daily Qualifiers: Esophagitis presence: esophagitis presence not specified Qualified Code(s): K21.9 - Gastro-esophageal reflux disease without esophagitis (8) CALLY (obstructive sleep apnea): Assessment and plan: apply oxygen at night. he was intolerant to use of CPAP at home and he tells me that he was only borderline w/ regard to his need for it. (9) DVT prophylaxis: Status: Acute Assessment and plan: enoxaparin 40 mg SC while hospitalized, however, ortho may want to follow their own DVT schedule, i..e ASA 325 mg bid x 30 days, if he goes on this schedule then his omeprazole should be increased to 40 mg daily to prevent PUD (10) BPH loc w urin obs/LUTS: Status: Acute Assessment and plan: patient has chronic indwelling vergara catheter, changes monthly. (11) Discharge planning issues: Status: Acute Assessment and plan: tiffany continues to work w/ P.T., remains full code; I have addressed w/ him my concerns that he may need short term rehab stay until he is fully ambulatory and independent w/ walker. He lives w/ his and his daughter he says is willing to help out and lives about 4 miles from he and his . I told him that he is a big man for them to have to picker and packer if he falls. He needs to be able to do transfers and ambulate w/ walker independently. Subjective Subjective Interval history since last seen: Patient states that he slept very well last night. First time in weeks. he has been using his IS and acapella. He denies any dyspnea or chest pain and his left hip pain seems well controlled. Exam Narrative Exam Narrative: Mr Marcum is alert and oriented, no acute distress, no dysypne although his SPO2 is borderline at 89% on 2 lpm, however he has CALLY and has been intolerant of CPAP and will not wear this. He does need oxygen when he sleeps Lungs: scattered expiratory wheezes Heart: bradycardic but regular, soft systolic mumur over apex; no S3 or S4 Abdomen: soft, nontender Extremities: no edema, good pedal pulses, left hip nontender to palpation; no bruising or induration, dressing intact Vergara draining clear yellow urine Objective Last Vital Signs Temp 36.5 C 03/10/23 14:51 Pulse 57 L 03/10/23 14:51 Resp 16 03/10/23 14:51 BP 102/57 L 03/10/23 14:51 Pulse Ox 89 L 03/10/23 14:51 Laboratory Results - last 24 hr 03/10/23 05:20 WBC 7.30 RBC 3.22 L Hgb 9.8 L Hct 29.7 L MCV 92 MCH 30.4 MCHC 33.0 RDW 13.6 Plt Count MPV Immature Gran % 1.4 Neutrophils % 65.7 Lymphocytes % 21.2 Monocytes % 6.4 Eosinophils % 4.8 Basophils % 0.5 Nucleated RBC % 0.0 Absolute Neutrophils 4.79 Absolute Lymphocytes 1.55 Absolute Monocytes 0.47 Absolute Eosinophils 0.35 Absolute Basophils 0.04 RBC Morphology Normal Sodium 135 L Potassium 5.0 Chloride 103 Carbon Dioxide 23.2 Anion Gap 8.8 BUN 42 H Creatinine 1.8 H Est GFR (CKD-EPI 2020) 39.75 Glucose 134 H Calcium 8.1 L Time Spent with Patient Time Spent with Patient: 35-49 minutes Time was spent: preparing to see the patient(eg.review tests), ordering medica tions,tests, procedures, referring, communicating with other health health and social care teacher (discussion w/ CM, nursing and RT), indepentently interpreting results, counseling the patient and care coordination
[2023-03-10] MEDS: Lactated Ringers 500 ML 100 ML IV (16:51)
[2023-03-10] MEDS: Methylnaltrexone 12 MG/0.6 ML VIAL SC (17:22)
[2023-03-10 20:34] VITALS: BP 161/69; PULSE 68; RESP 18; TEMP 37.4; O2SAT 94
[2023-03-10] MEDS: Cyclobenzaprine 10 MG TAB PO (20:37)
[2023-03-10] MEDS: Amitriptyline 50 MG TAB 300 MG PO (22:27)
[2023-03-10] MEDS: traZODone 50 MG TAB PO (22:28)
[2023-03-10 23:25] VITALS: BP 144/69; PULSE 67; RESP 16; TEMP 37.3; O2SAT 92
[2023-03-11 07:00] LABS: Abs Immature Grans 0.04 10^3/uL (0.0-0.06); Absolute Basophil Count 0.03 10^3/uL (0.0-0.2); Absolute Eosinophil Count 0.27 10^3/uL (0.0-0.7); Absolute Lymphocyte Count 0.67 10^3/uL (1.2-3.4); Absolute Monocyte Count 0.43 10^3/uL (0.1-0.8); Absolute Neutrophil Count 6.75 10^3/uL (1.2-6.7); Basophils % 0.4; Eosinophils % 3.3; HCT 36.4 % (40.0-50.0); HGB 11.9 g/dL (13.5-17.5); Immature Grans % 0.5; Lymphocytes % 8.2; MCH 30.4 pg (27.0-33.0); MCHC 32.7 % (32.0-36.0); MCV 93 fL (80-95); Monocytes % 5.3; Neutrophils % 82.3; Nucleated RBC 0.2 % (0.0-0.3); RBC 3.92 10^6/uL (4.36-5.78); RDW 13.6 % (11.8-14.1); RDW-SD 46.3 fL; WBC 8.19 10^3/uL (4.4-10.8)
[2023-03-11 07:10] LABS: Anion Gap 9.9 mmol/L (3-11); BUN 45 mg/dL (7-18); CO2 22.1 mmol/L (21.0-32.0); CREATININE 1.5 mg/dL (0.70-1.30); Calcium 8.3 mg/dL (8.5-10.1); Chloride 105 mmol/L (98-107); Estimated GFR 49.47 (mL/min/1.73m2); Glucose 153 mg/dL (74-106); Sodium 137 mmol/L (136-145)
[2023-03-11 07:17] LABS: Diff Comment Diff Reviewed; RBC Morphology Normal
[2023-03-11 07:55] VITALS: BP 165/79; PULSE 60; RESP 23; TEMP 37.1; O2SAT 91
[2023-03-11] MEDS: Insulin Aspart 300 UNITS/3 ML PEN SC ×4 (08:01→21:36)
[2023-03-11] MEDS: Enoxaparin 40 MG/0.4 ML SYR SC (08:03)
[2023-03-11] MEDS: Omeprazole 20 MG CAPCR PO ×2 (08:04→20:07)
[2023-03-11] MEDS: metFORMIN 500 MG TAB 1000 MG PO ×2 (08:04→17:25)
[2023-03-11] MEDS: Polyethylene Glycol 3350 17 GM PACKET PO (08:04)
[2023-03-11] MEDS: Acetaminophen 500 MG TAB 1000 MG PO ×3 (08:05→20:06)
[2023-03-11] MEDS: Finasteride 5 MG TAB PO (08:05)
[2023-03-11] MEDS: Atorvastatin 20 MG TAB PO (08:05)
[2023-03-11] MEDS: dilTIAZem CD 120 MG CAPCR 240 MG PO (08:05)
[2023-03-11] MEDS: guaiFENesin 600 MG TABCR PO ×2 (08:05→20:06)
[2023-03-11] MEDS: Sennosides/Docusate Sodium TAB 1 TAB PO ×2 (08:05→20:06)
[2023-03-11] MEDS: Ferrous Sulfate 325 MG TAB PO ×2 (08:05→20:07)
[2023-03-11] MEDS: Tamsulosin 0.4 MG CAPCR PO ×2 (08:05→20:07)
[2023-03-11] MEDS: Multivitamin TAB 1 TAB PO (08:05)
[2023-03-11 08:38] VITALS: O2SAT 89
[2023-03-11] MEDS: Budesonide/Formoterol 160/4.5 6 GM 60 PUFF INH IH ×2 (08:39→20:39)
[2023-03-11] MEDS: Tiotropium Bromide-Respimat 10 PUFF INH 2 PUFF IH (08:39)
--- NOTE | 2023-03-11 08:47 | RESPIRATORY ---
Spoke with patient about his CALLY diagnosis and he advised he has a home CPAP machine but hasn't been using it as he feels it doesn't help him instead he has been wearing 2L O2 at night.
[2023-03-11] MEDS: Cyclobenzaprine 10 MG TAB PO ×2 (09:01→20:07)
--- NOTE | 2023-03-11 11:35 | PTTR_ITS ---
Date of service: 03/11/23 Time of Service: 09:05 PT Notes Visit Reasons: Left hip fracture Inpatient Physical Therapy Treatment Note [facility] Date: 03/11/23 PRECAUTIONS: Fall, standard, activity as tolerated. WBAT LUE, WBAT LLE with AD. SUBJECTIVE: Patient reports pain in left hip / upper thigh area, especially with movement. OBJECTIVE: Supine in bed, agreeable to therapy. Left forearm, wrist, hand has cast in place.? PAIN: Yes, patient cries out several times with attempting to move LLE. AFTERNOON: Pain appears to be less, although still painful with movement. VITALS: monitored by nursing staff. Therapeutic Activities ([id number]): Direct one-on-one instruction in dynamic activities to improve functional performance. ? BED MOBILITY/TRANSFERS? Rolling L/R: not assessed Supine-sit: mod assist of 2 with HOB near maximally elevated, with one person supporting LLE and controlling its descent in a slow fashion and the other person assisting patient at the trunk / shoulders to come into a seated position. ? Sit-supine: mod assist of 2, with one person assisting patient in raising his legs into the bed and the other person controlling the descent of patient's trunk in the direction of the head of the bed. Patient is able to scoot up with min assist of one to bend the knee on the LLE, and verbal cues to use arms and legs both. ?Sit-stand: min assist to contact guard of one at the gait belt, tall bed ? Stand-sit: CGA and verbal cues to ensure patient is close enough, reach back with arms. Bed to chair: min assist of one at gait belt, verbal cues to push weight down through right arm/hand and left elbow ? Provided skilled cues and instruction on performance and technique throughout. Gait Training ([id number]): Direct one-on-one instruction and skilled instruction in: * pre gait activities including standing weight shift x10, weight shift with heel raise x10, side step x4 each direction, rocking forward/backward with legs staggered. [x] employing an assistive device [x] modified weight-bearing status [] movement sequencing [x] turning and movement with proper form [x] Provided verbal cues for equipment management and technique [] Provided instruction in gait pattern [] Patient education regarding pacing and breathing techniques to maximize activity tolerance? GAIT? Assistive Device: FWW ? Weight bearing: WBAT with AD Assist: min assist, mod verbal cues ? Distance:? 4 feet? Deviation: slow nuvia, wide henny, short asymmetric antalgic steps. ? ASSESSMENT:? Patient tolerates therapy well, reports fatigue and feeling worn out at the end of treatment session, no increase in pain, no shortness of breath. Patient would benefit from a brief stay in a subacute rehab facility in order to improve strength and functional mobility tolerance before returning home. PLAN: Continue global strengthening per plan of care until patient is medically cleared for discharge. TREATMENT CODE/TIME: 37 minutes beginning at 9:05 and `16 minutes beginning at 13:46 for a total of 53 minutes today.
--- NOTE | 2023-03-11 12:27 | PDOC.CMPRO ---
Date of service: 03/11/23 Time of Service: 12:27 Care Management Progress Note Progress Note Text Progress Note Text: S/O: Jairo was sitting up in his chair when CM met with him. He had just finished working with PT. CM spoke with PT, who had evaluated Jairo over the weekend, and recommended HH PT vs SNF. Today, PT feels that Jairo would benefit from SNF for continued rehabilitation prior to returning home. CM discussed this with Jairo, who expressed some reservations about going to a SNF, as he would prefer to return home. CM asked if Jairo felt that he would be able to manage at home in his current functional capacity, and he did not. CM reviewed options for short term rehab, and explained the process. Jairo agreed to referrals being sent to [facility], and [facility] for consideration, although he stated that if his functional status improves prior to his discharge, he would like to return home. CM agreed and sent the referrals, as requested. CM will continue to follow. A: Jairo is a 72 year old male admitted to [facility] on 03/07/23 for a left hip fracture. P: Anticipate Jairo will return home vs SNF, depending on progress toward his goals with PT. His transport will be determined by disposition. He will follow up with his PCP and discharge plan of care. CM will continue to follow. SDOH(Care Management) Screening Will the Patient Participate in the Screening?: Yes Do you worry about having a steady place to live?: no In the past 12 months, have you had to go without electric, gas, oil or water in your home?: no Have you or anyone in your house had to go without enough food to eat?: no Has lack of transportation kept you from medical appointments or from doing things needed for daily living?: no Has anyone in your support network made you feel unsafe for any reason?: no
[2023-03-11] MEDS: oxyCODONE 5 MG TAB PO ×2 (13:33→20:07)
--- NOTE | 2023-03-11 13:42 | PHA.REVIEW2 ---
Pharmacy Admission Review Admission Clinical Review Admission Pharmacy Review: (Updated 03/10/23 @ 16:44 by Roly Nix MD) KAREN (acute kidney injury) (Acute) Fracture of left distal radius (Acute 03/07/23) Displaced intertrochanteric fracture of left femur (Acute 03/07/23) Wrist pain, acute (Acute) Discharge planning issues (Acute) DVT prophylaxis (Acute) BPH loc w urin obs/LUTS (Acute) Type 2 diabetes mellitus (Acute) Hip fracture, left (Acute) duloxetine Allergy (Verified 03/07/23 22:17) sertraline Allergy (Verified 03/07/23 22:17) morphine Adverse Reaction (Verified 03/07/23 22:17) ivory soap Adverse Reaction (Uncoded 03/07/23 22:17) Resuscitation Status Full Code Height 5 ft 10 in Weight 140.16 kg Comments Comments/Follow Ups: Per morning meeting, patient is medically cleared and waiting on rehab placement. Pharmacy Admission Review Renal Dosing Renal Dosing: BUN 45 mg/dL (7-18) H 03/11/23 05:55 Creatinine 1.5 mg/dL (0.70-1.30) H 03/11/23 05:55 Medications needing adjustments: Reviewed (CrCl 63.8 mL/min) Anticoagulation Anticoagulation: Hgb 11.9 g/dL (13.5-17.5) L D 03/11/23 05:55 Hct 36.4 % (40.0-50.0) L 03/11/23 05:55 Plt Count 10^3/uL (130-400) 03/11/23 05:55 Creatinine 1.5 mg/dL (0.70-1.30) H 03/11/23 05:55 DVT Prophylaxis: Reviewed Medications: Enoxaparin (40mg q24h) Opiate Usage Evaluate Pain Scale/Pains Meds: Reviewed (PRN oxycodone and hydromorphone) Scheduled Bowel Reg ordered if on Opiates?: Yes (Senna/docusate) Relevant Labs Relevant Labs: Sodium 137 mmol/L (136-145) 03/11/23 05:55 Potassium 5.0 mmol/L (3.5-5.1) 03/11/23 05:55 Chloride 105 mmol/L (98-107) 03/11/23 05:55 Electrolytes, C-Reactive P, ESR: Reviewed (BUN increased from 42 to 45, SCr decreased from 1.8 to 1.5. Hgb increased from 9.8 to 11.9) DM Control DM Control: Glucose 153 mg/dL (74-106) H 03/11/23 05:55 Finger Stick Blood Glucose 185 1246 Finger Stick Blood Glucose 185 1137 Finger Stick Blood Glucose 152 0801 Finger Stick Blood Glucose 152 0752 Insulin Dosing, Diabetic Medication: Has order for SS insulin and metformin. Glucose 153 at 0555 today. Cardiac Review BP, HR, EF%: Reviewed (HR WNL, BP 165/79. Ox 89 L on room air) QTc Review QTc: Reviewed (452 on 03/08/23) IV to PO Switch IV Medications: Reviewed Home Meds Home Med List reviewed: Reviewed Relevent Home Meds Not ordered & why?: On home med list but no order: Trulicity, furosemide (last filled on 07/06/22) Diltiazem and Spiriva were last filled on 09/20/22 for 90 day supplies, suggests potential non-compliance with these medications. There are orders for both for current admission. Current Meds Current Medication Order Review: Reviewed Comments: Lisinopril currently on hold due to KAREN. Kidney function is improving, SCr decreased but BUN increased. BP has been elevated today. Could consider restarting if kidney function continues to improve tomorrow. Comments Comments/Follow Ups: Per morning meeting, patient is medically cleared and waiting on rehab placement.
[2023-03-11] MEDS: HYDROmorphone 2 MG/ML SYR IVP (15:33)
[2023-03-11 15:40] VITALS: BP 168/76; PULSE 62; RESP 18; TEMP 37.2; O2SAT 92
--- NOTE | 2023-03-11 17:56 | PGE_ITS ---
Date of Service Date of service: 03/11/23 Time of Service: 17:57 Assessment and Plan Assessment and plan (1) Displaced intertrochanteric fracture of left femur: Status: Acute Assessment and plan: -s/p ORIF intramedullary nailing done by Dr. Hernadez POD#3 -Continue with physical therapy. -will need TOMMY placement, awaiaitn bed -continueprn oxycodone and he has prn iv dilaudid. Qualifiers: Encounter type: initial encounter Fracture type: closed Qualified Code(s): S72.142A - Displaced intertrochanteric fracture of left femur, initial encounter for closed fracture (2) Fracture of left distal radius: Status: Acute Assessment and plan: -apparently the minimally displaced fracture of the intraarticular area did not require any reduction but a fiberglass short arm cast was applied and a swa was used to bivalve the cast on the radial and ulnar sides to allow for any soft tissue edema. Qualifiers: Encounter type: initial encounter Fracture type: closed Fracture morphology: unspecified fracture morphology Qualified Code(s): S52.502A - Unspecified fracture of the lower end of left radius, initial encounter for closed fracture (3) KAREN (acute kidney injury): Status: Acute Assessment and plan: -BUN and creatinine rising at 42 and 1.8, lisinopril now on hold, will give judicious fluids and not restart his diuretics yet. repeat BMP in the a.m. Also stop Naprosyn. (4) COPD (chronic obstructive pulmonary disease): Status: Chronic Assessment and plan: -continue Spiriva and Symbicort while hospitalized along w/ use of prn DuoNeb aerosols. -continue oxygen especially during the night or whenever napping as he has CALLY and will not wear a CPAP Qualifiers: COPD type: chronic bronchitis Chronic bronchitis type: simple Qualified Code(s): J41.0 - Simple chronic bronchitis (5) Hypertension: Status: Chronic Assessment and plan: -not hypertensive here but rather he is borderline w/ BPw/ 102/57 and 97/57 and his BUN and creatinine are elevated at 42/1.8 -hold lisinopril Qualifiers: Hypertension type: primary hypertension Qualified Code(s): I10 - Essential (primary) hypertension (6) Type 2 diabetes mellitus: Status: Acute Assessment and plan: -on a diabetic heart healthy diet and change insulin coverage back to ac/hs using insulin sensitive scale Qualifiers: Diabetes mellitus terminal operations supervisor insulin use: with terminal operations supervisor use Diabetes mellitus complication status: without complication Qualified Code(s): E11.9 - Type 2 diabetes mellitus without complications; Z79.4 - ferry terminal 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 he was intolerant to use of CPAP at home and he tells me that he was only borderline w/ regard to his need for it. (9) DVT prophylaxis: Status: Acute Assessment and plan: enoxaparin 40 mg SC while hospitalized, however, ortho may want to follow their own DVT schedule, i..e ASA 325 mg bid x 30 days, if he goes on this schedule then his omeprazole should be increased to 40 mg daily to prevent PUD (10) BPH loc w urin obs/LUTS: Status: Acute Assessment and plan: patient has chronic indwelling vergara catheter, changes monthly. Subjective Subjective Interval history since last seen: Patent states that he is doing well today. He understands that we are awaiting a TOMMY bed and he is looking forward to regaining his strength and mobilty. Exam Narrative Exam Narrative: well appearing older gentleman laying in bed in no acute distress, AOx4, heart RRR, lungs CTAB, abdomen obese, soft, non-tender, non-distended, left wrist in cast, left hip surgical wound without surrounding erythema or drainage Objective Last Vital Signs Temp 99.0 F 03/11/23 15:40 Pulse 62 03/11/23 15:40 Resp 18 03/11/23 15:40 BP 168/76 H 03/11/23 15:40 Pulse Ox 92 03/11/23 15:40 Laboratory Results - last 24 hr 03/11/23 05:55 WBC 8.19 RBC 3.92 L Hgb 11.9 L D Hct 36.4 L MCV 93 MCH 30.4 MCHC 32.7 RDW 13.6 Plt Count MPV Immature Gran % 0.5 Neutrophils % 82.3 Lymphocytes % 8.2 Monocytes % 5.3 Eosinophils % 3.3 Basophils % 0.4 Nucleated RBC % 0.2 Absolute Neutrophils 6.75 H Absolute Lymphocytes 0.67 L Absolute Monocytes 0.43 Absolute Eosinophils 0.27 Absolute Basophils 0.03 RBC Morphology Normal Sodium 137 Potassium 5.0 Chloride 105 Carbon Dioxide 22.1 Anion Gap 9.9 BUN 45 H Creatinine 1.5 H Est GFR (CKD-EPI 2020) 49.47 Glucose 153 H Calcium 8.3 L Time Spent with Patient Time Spent with Patient: >50 minutes Time was spent: preparing to see the patient(eg.review tests), obtaining and/or reviewing separately otained hiistory, ordering medications,tests, procedures, referring, communicating with other health ambulatory care nurse, indepentently interpreting results, counseling the patient and care coordination
[2023-03-11] MEDS: Normal Saline Flush 10 ML SYR IVP (20:08)
[2023-03-11 20:40] VITALS: O2SAT 93
[2023-03-11] MEDS: traZODone 50 MG TAB PO (21:25)
[2023-03-11] MEDS: Amitriptyline 50 MG TAB 300 MG PO (21:25)
[2023-03-11 22:52] VITALS: BP 136/73; PULSE 62; RESP 19; TEMP 37.2; O2SAT 94
--- NOTE | 2023-03-12 | DI.RAD_ITS ---
Exam(s) XR HIP LT AP LAT ONLY EXAM: XR HIP LT AP LAT ONLY CLINICAL HISTORY: eval post-mobilization pain s/p IMN of L hip frx. TECHNIQUE: 2D digital imaging was performed. COMPARISON: CR,XR XR FEMUR LT from 03/07/2023 XA XR HIP LT IN OR from 03/08/2023 CR XR HIP LT 1V from 03/08/2023 FINDINGS: 3 views Again noted is the recently placed left femoral screw and intramedullary jeancarlos. Fractures of both grea ter trochanter and lesser trochanter again noted. IMPRESSION: Intertrochanteric fracture with hardware as above. DATA REPOSITORY: RADIATION DOSE DELIVERED:
[2023-03-12] MEDS: HYDROmorphone 2 MG/ML SYR IVP (06:28)
[2023-03-12] MEDS: Polyethylene Glycol 3350 17 GM PACKET PO (07:28)
[2023-03-12] MEDS: Enoxaparin 40 MG/0.4 ML SYR SC (07:28)
[2023-03-12] MEDS: Sennosides/Docusate Sodium TAB 1 TAB PO ×2 (07:30→20:11)
[2023-03-12] MEDS: guaiFENesin 600 MG TABCR PO ×2 (07:30→20:11)
[2023-03-12] MEDS: Multivitamin TAB 1 TAB PO (07:30)
[2023-03-12] MEDS: Finasteride 5 MG TAB PO (07:30)
[2023-03-12] MEDS: Atorvastatin 20 MG TAB PO (07:31)
[2023-03-12] MEDS: Omeprazole 20 MG CAPCR PO ×2 (07:31→20:12)
[2023-03-12] MEDS: metFORMIN 500 MG TAB 1000 MG PO ×2 (07:31→17:46)
[2023-03-12] MEDS: Tamsulosin 0.4 MG CAPCR PO ×2 (07:32→20:11)
[2023-03-12] MEDS: Ferrous Sulfate 325 MG TAB PO ×2 (07:32→20:11)
[2023-03-12] MEDS: Acetaminophen 500 MG TAB 1000 MG PO ×3 (07:32→20:11)
--- NOTE | 2023-03-12 07:38 | DI.VRAD_ITS ---
PROCEDURE INFORMATION: Exam: XR Left Hip Exam date and time: 03/12/2023 6:45 AM Age: 72 years old Clinical indication: Hip pain; Left hip; Prior surgery; Surgery date: 3-7 days post-operative; Surgery type: S/P iml; Patient HX: Eval post-mobilization pain S/P imn of L hip frx TECHNIQUE: Imaging protocol: Radiologic exam of the left hip. Views: 2 or 3 views hip with pelvis when performed. COMPARISON: XA XR HIP LT IN OR 03/08/2023 3:42 PM FINDINGS: Bones/joints: Left femoral screw and intramedullary jeancarlos present. There is an intertrochanteric femoral fracture involving greater and lesser trochanters. Soft tissues: Unremarkable. Vasculature: Arterial calcifications. IMPRESSION: 1. Intertrochanteric femoral fracture. 2. Hardware as above. Dictated and Authenticated by: Lila Duffy MD. Ordering:SADIA Gannon MD
[2023-03-12] MEDS: dilTIAZem CD 120 MG CAPCR 240 MG PO (07:51)
[2023-03-12] MEDS: Tiotropium Bromide-Respimat 10 PUFF INH 2 PUFF IH (07:52)
[2023-03-12] MEDS: Budesonide/Formoterol 160/4.5 6 GM 60 PUFF INH IH ×2 (07:52→20:54)
[2023-03-12 07:55] VITALS: O2SAT 90
[2023-03-12] MEDS: Insulin Aspart 300 UNITS/3 ML PEN SC ×4 (07:59→21:39)
[2023-03-12] MEDS: oxyCODONE 5 MG TAB PO ×2 (09:08→20:11)
[2023-03-12] MEDS: Fluticasone NASAL SPRAY 16 GM BTL NS (09:09)
--- NOTE | 2023-03-12 10:56 | W.PM.PROGNOT ---
Date of Service Date of service: 03/12/23 Time of Service: 10:56 Assessment and Plan Assessment and plan (1) Displaced intertrochanteric fracture of left femur: Status: Acute Assessment and plan: -s/p ORIF intramedullary nailing done by Dr. Hernadez POD#4 -Continue with physical therapy. -[facility]ed to [facility]/13 -continueprn oxycodone and he has prn iv dilaudid. Qualifiers: Encounter type: initial encounter Fracture type: closed Qualified Code(s): S72.142A - Displaced intertrochanteric fracture of left femur, initial encounter for closed fracture (2) Fracture of left distal radius: Status: Acute Assessment and plan: -apparently the minimally displaced fracture of the intraarticular area did not require any reduction but a fiberglass short arm cast was applied and a swa was used to bivalve the cast on the radial and ulnar sides to allow for any soft tissue edema. Qualifiers: Encounter type: initial encounter Fracture type: closed Fracture morphology: unspecified fracture morphology Qualified Code(s): S52.502A - Unspecified fracture of the lower end of left radius, initial encounter for closed fracture (3) KAREN (acute kidney injury): Status: Acute Assessment and plan: -BUN and creatinine rising at 42 and 1.8, lisinopril now on hold, will give judicious fluids and not restart his diuretics yet. repeat BMP in the a.m. Also stop Naprosyn. (4) COPD (chronic obstructive pulmonary disease): Status: Chronic Assessment and plan: -continue Spiriva and Symbicort while hospitalized along w/ use of prn DuoNeb aerosols. -continue oxygen especially during the night or whenever napping as he has CALLY and will not wear a CPAP Qualifiers: COPD type: chronic bronchitis Chronic bronchitis type: simple Qualified Code(s): J41.0 - Simple chronic bronchitis (5) Hypertension: Status: Chronic Assessment and plan: -not hypertensive here but rather he is borderline w/ BPw/ 102/57 and 97/57 and his BUN and creatinine are elevated at 42/1.8 -hold lisinopril Qualifiers: Hypertension type: primary hypertension Qualified Code(s): I10 - Essential (primary) hypertension (6) Type 2 diabetes mellitus: Status: Acute Assessment and plan: -on a diabetic heart healthy diet and change insulin coverage back to ac/hs using insulin sensitive scale Qualifiers: Diabetes mellitus [facility] insulin use: with [facility] use Diabetes mellitus complication status: without complication Qualified Code(s): E11.9 - Type 2 diabetes mellitus without complications; Z79.4 - terminal operator (current) use of insulin (7) GERD (gastroesophageal reflux disease): Assessment and plan: resume omeprazole 20 mg daily Qualifiers: Esophagitis presence: esophagitis presence not specified Qualified Code(s): K21.9 - Gastro-esophageal reflux disease without esophagitis (8) CALLY (obstructive sleep apnea): Assessment and plan: apply oxygen at night. he was intolerant to use of CPAP at home and he tells me that he was only borderline w/ regard to his need for it. (9) DVT prophylaxis: Status: Acute Assessment and plan: enoxaparin 40 mg SC while hospitalized, however, ortho may want to follow their own DVT schedule, i..e ASA 325 mg bid x 30 days, if he goes on this schedule then his omeprazole should be increased to 40 mg daily to prevent PUD (10) BPH loc w urin obs/LUTS: Status: Acute Assessment and plan: patient has chronic indwelling vergara catheter, changes monthly. Subjective Subjective Interval history since last seen: Patent states that he is doing well today. He understands that he has a [facility] bed offer and will likely be discharged tomorrow. Exam Narrative Exam Narrative: well appearing older gentleman laying in bed in no acute distress, AOx4, heart RRR, lungs CTAB, abdomen obese, soft, non-tender, non-distended, left wrist in cast, left hip surgical wound without surrounding erythema or drainage Objective Last Vital Signs Temp 99.0 F 03/11/23 22:52 Pulse 62 03/11/23 22:52 Resp 19 03/11/23 22:52 BP 136/73 03/11/23 22:52 Pulse Ox 90 L 03/12/23 07:55 Time Spent with Patient Time Spent with Patient: >50 minutes Time was spent: preparing to see the patient(eg.review tests), obtaining and/or reviewing separately otained hiistory, ordering medications,tests, procedures, referring, communicating with other health school childcare attendant, indepentently interpreting results, counseling the patient and care coordination
--- NOTE | 2023-03-12 11:27 | PTTR_ITS ---
Date of service: 03/12/23 Time of Service: 10:08 PT Notes Visit Reasons: Left hip fracture Inpatient Physical Therapy Treatment Note [facility] Date: 03/12/23 PRECAUTIONS: Fall, standard, activity as tolerated. Premedicate for pain. WBAT LUE / LLE. SUBJECTIVE: Patient reports that he is not excited about getting moving. AFTERNOON: Patient asleep, reports being extremely fatigued, only wants to go to bed so he can rest. OBJECTIVE: Patient in Tovar's pose eating a donut when this clinician enters. Patient's daughter is present Throughout morning treatment session. AFTERNOON: Sitting up in chair, asleep. Wakes easily. Agreeable to therapy. ? PAIN: yes, pain in Left hip with movement. Pain in left wrist / fingers. Pain also reported at base of right thumb, where the metacarpal meets the carpals on the lateral aspect. VITALS: monitored by nursing staff. ? Therapeutic Activities ([id number]): Direct one-on-one instruction in dynamic activities to improve functional performance. ? BED MOBILITY/TRANSFERS? Rolling L/R: not assessed Supine-sit: With HOB elevated ~30 degrees, bilateral bed rails and additional side rail on right side of bed, patient requires min assist to support movement of patient's left leg (this clinician helps to unweight the left leg to make moving easier) as well as minimal assist via handhold?so that patient can pull himself upright. NOTE: Patient does not have hospital bed at home. ? Sit-supine: not assessed AFTERNOON: Patient falls backward onto bed, requires mod assist to get legs into bed but is able to correct his position in the bed independently, both scooting up towards head of bed and also moving his torso and feet to midline of the bed. ? Sit-stand: mod assist of one at gait belt with verbal cues to push up from sitting surface. ? Stand-sit: CGA? Bed-Chair: Mod assist to stand, then CGA for ambulation and verbal cues to ensure patient is lined up safely to sit. ? Chair-bed: not assessed AFTERNOON: Mod assist to stand, then CGA for ambulation and verbal cues to ensure patient is lined up safely to sit. ? Provided skilled cues and instruction on performance and technique throughout. ? Therapeutic Exercises ([id number]): Direct one-on-one instruction in therapeutic exercises to develop strength, endurance, range of motion and flexibility. ? Exercises: * sit to stands x3 * ambulation x5 feet with FWW and CGA Ambulation ? Assistive Device: FWW ? Weight bearing: WBAT Assist: CGA? Distance:? 5 feet? Deviation: Wide MARY, step to gait pattern with left leg leading, c/o pain. ? Patient requires extended rest between short periods of exertion due to his level of conditioning. Patient becomes very short of breath, very fatigued. ? Provided skilled instruction in proper exercise performance Provided skilled manual cues to facilitate proper muscle recruitment and/or form. ASSESSMENT:? Patient becomes very fatigued with relatively little exertion. Reportedly could not scoot back in his chair because he was so tired. PLAN: Continue global strengthening per plan of care until patient is medically cleared for discharge and obtains safe discharge plan. TREATMENT CODE/TIME: 34 minutes beginning at 10:08 and 18 minutes beginning at 12:38 for a total of 52 minutes today.
--- NOTE | 2023-03-12 13:36 | PGE_ITS ---
Date of Service Date of service: 03/12/23 Time of Service: 11:45 Assessment and Plan Assessment and plan (1) Fracture of left distal radius: Status: Acute Qualifiers: Encounter type: initial encounter Fracture morphology: unspecified fracture morphology Fracture type: closed Qualified Code(s): S52.502A - Unspecified fracture of the lower end of left radius, initial encounter for closed fracture (2) Displaced intertrochanteric fracture of left femur: Status: Acute Assessment and plan: 72-year-old male postop day #4 status post Left hip IMN and Left wrist fracture short arm bivalved casting Overall patient reports that he has been doing well, does have some ongoing pain, hip greater than the wrist. He is receiving morphine with adequate pain control. Encouraged by progress thus far. Patient states that he will be discharged from the hospital and going to a rehab facility tomorrow. He has been working with PT and ambulatory using a walker. Exam: Family present. Resting comfortably in chair. No acute distress. Left arm exam: Visual inspection without erythema, ecchymosis, swelling, obvious deformity. Full shoulder and elbow range of motion. He is able to fully move his fingers. Sensation intact light touch of the palmar, ulnar nerve. Left hip and lower leg exam: Visual inspection without erythema, ecchymosis, deformity. Mild swelling about the thigh. Thigh is compressible with only minimal pain to palpation. A clean, dry, and intact dressing is present without obvious signs of infection. Patient is very hesitant but able to actively flex their hip greater than 90 degrees with minor discomfort. Pt able to demonstrate nonirritable and smooth internal and external rotation with only minor discomfort. While seated, able to hold leg in hip flexion against light resistance without discomfort. No significant pain with palpation about the distal femur mild pain over the proximal IT band. No significant discomfort, swelling, or effusion about the knee. Calf is soft, no palpable cord. Patient able to demonstrate active dorsi and plantarflexion of the ankle as well as great toe flexion and extension. Sensation intact to light touch over the deep and superficial peroneal nerve and tibial nerve. Pain control-Multimodal Physical therapy: Weightbearing as tolerated left hip with assist device; weightbearing as tolerated left wrist through cast, consider platform walker. No evidence of significant hand or wrist swelling. Outer layer of Scotchcast plus applied over the original bivalved casting. Hip x-ray 03/12/2023 reviewed, stable appearing fractures of both the greater and lesser trochanter with satisfactory placement of left femoral screw and intramedullary jeancarlos without evidence of lucencies or loosening. Discharge when medically appropriate; appears placement has been found and likely discharge tomorrow. Keep Mepilex bandages in place for another 1 week, may then remove and leave exposed to air. Keep cast clean dry and intact. Recommend 30 days DVT prophylaxis. May transition to aspirin 81-325 mg twice daily as outpatient. Follow-up with Dr. Hernadez outpatient [facility] orthopedics in about 10 days. He may follow-up with an orthopedic surgeon for closer to home if he chooses. Qualifiers: Encounter type: initial encounter Fracture type: closed Qualified Code(s): S72.142A - Displaced intertrochanteric fracture of left femur, initial encounter for closed fracture Objective Last Vital Signs Temp 99.0 F 03/11/23 22:52 Pulse 62 03/11/23 22:52 Resp 19 03/11/23 22:52 BP 136/73 03/11/23 22:52 Pulse Ox 90 L 03/12/23 07:55 Time Spent with Patient Time Spent with Patient: <25 minutes Time was spent: preparing to see the patient(eg.review tests), referring, communicating with other health career orientation teacher and counseling the patient
[2023-03-12 15:12] VITALS: BP 172/70; PULSE 61; RESP 20; TEMP 36.9; O2SAT 94
--- NOTE | 2023-03-12 16:01 | CMPROGNOTE_ITS ---
Date of service: 03/12/23 Time of Service: 16:01 Care Management Progress Note Progress Note Text Progress Note Text: S/O: Jairo was sitting up in bed when CM met with him. He had been working with PT, and his daughter was in the room visiting. CM discussed his discharge plan, as he has received a bed offer from [facility]. After discussion, he agreed to accept the bed offer. CM informed admissions at [facility], who began the prior authorization process. Per , he is medically cleared for discharge once his PA is approved. CM will continue to follow. A: Jairo is a 72 year old male admitted to [facility] on 03/07/23 for a left hip fracture. P: Anticipate Jairo will go to [facility], pending insurance prior approval. He will transport via facility w/c van. He will follow up with his PCP and discharge plan of care. CM will continue to follow. SDOH(Care Management) Screening Will the Patient Participate in the Screening?: Yes Do you worry about having a steady place to live?: no In the past 12 months, have you had to go without electric, gas, oil or water in your home?: no Have you or anyone in your house had to go without enough food to eat?: no Has lack of transportation kept you from medical appointments or from doing things needed for daily living?: no Has anyone in your support network made you feel unsafe for any reason?: no
--- NOTE | 2023-03-12 16:49 | CHAPLAIN ---
Jairo was sitting up in the chair, awaiting surgery for a broken hip. He had a family member in the room with him on the phone. Jairo said he is from [place], [place]. 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 When I asked about supports, Jairo said I have a a lot of help at home.
[2023-03-12 20:08] VITALS: BP 168/80; PULSE 66; RESP 18; TEMP 37.8; O2SAT 91
[2023-03-12] MEDS: Cyclobenzaprine 10 MG TAB PO (20:11)
[2023-03-12] MEDS: Normal Saline Flush 10 ML SYR IVP (20:12)
[2023-03-12] MEDS: Amitriptyline 50 MG TAB 300 MG PO (21:40)
[2023-03-12] MEDS: traZODone 50 MG TAB PO (21:40)
[2023-03-12 23:38] VITALS: BP 166/65; PULSE 62; RESP 20; TEMP 36.9; O2SAT 95
[2023-03-13 02:12] VITALS: BP 156/71; PULSE 56; O2SAT 97
[2023-03-13 07:07] LABS: Abs Immature Grans 0.04 10^3/uL (0.0-0.06); Absolute Basophil Count 0.02 10^3/uL (0.0-0.2); Absolute Eosinophil Count 0.13 10^3/uL (0.0-0.7); Absolute Lymphocyte Count 0.91 10^3/uL (1.2-3.4); Absolute Monocyte Count 0.55 10^3/uL (0.1-0.8); Absolute Neutrophil Count 4.26 10^3/uL (1.2-6.7); Basophils % 0.3; Eosinophils % 2.2; HCT 29.9 % (40.0-50.0); HGB 9.6 g/dL (13.5-17.5); Immature Grans % 0.7; Lymphocytes % 15.4; MCH 30.1 pg (27.0-33.0); MCHC 32.1 % (32.0-36.0); MCV 94 fL (80-95); MPV 10.3 fL (8.0-11.0); Monocytes % 9.3; Neutrophils % 72.1; Platelet Count 198 10^3/uL (130-400); RBC 3.19 10^6/uL (4.36-5.78); RDW 13.6 % (11.8-14.1); RDW-SD 46.7 fL; WBC 5.91 10^3/uL (4.4-10.8)
--- NOTE | 2023-03-13 07:49 | W.PM.DS.N ---
Date of service: 03/13/23 Time of Service: 10:56 DS: Diagnosis Discharge Diagnosis (1) Fracture of left distal radius: Status: Acute Asessment and Plan: - Did not require any reduction but is now on fiberglass cast, will follow-up with orthopedics (2) Displaced intertrochanteric fracture of left femur: Status: Acute Asessment and Plan: - Status post ORIF, now postop day 5 -Continue physical therapy at subacute rehab (3) COPD (chronic obstructive pulmonary disease): Status: Chronic Asessment and Plan: - Without acute exacerbation, continue home inhaler regimen (4) Hypertension: Status: Chronic Asessment and Plan: - Have been holding lisinopril due to low blood pressures, recommend restarting at discharge (5) Type 2 diabetes mellitus: Status: Acute Asessment and Plan: - Continue home medication regimen Discharge Plan Disposition Patient Disposition: Jail Facility(SNF) Condition: Good Discharge Details Reason For Visit: Left hip fracture Admit Date/Time: 03/07/23 22:01 Admit Provider: Nehemiah Anna Attending Provider: Nehemiah Anna [facility] Hospital Course: Patient initially presented from [facility] after a slip and fall on his left side but she sustained a left hip fracture and left wrist fracture. He is now postop day 5 from left hip fracture repair for which she had no medical complications. He worked well physical therapy but was determined to require subacute rehab before returning home. Which time it was determined that the patient was stable for discharge to subacute rehab Home Meds and New Rx's Prescriptions: Continued amitriptyline 150 mg tablet 300 mg PO DAILY Rx Instructions: at bedtime for depression and anxiety atorvastatin 20 mg tablet 20 mg PO DAILY Breztri Aerosphere 160-9-4.8 mcg/actuation HFA aerosol inhaler 2 inh inhalation BID cyclobenzaprine 10 mg tablet 10 mg PO TID PRN Rx Instructions: as needed for muscle spasm diltiazem HCl 240 mg capsule,extended release 24 hr 240 mg PO DAILY dulaglutide 0.75 mg/0.5 mL pen injector 0.75 mg subcut QWEEK finasteride 5 mg tablet 5 mg PO DAILY fluticasone propionate [Allergy Relief (fluticasone)] 50 mcg/actuation spray,suspension 1 spray intranasal DAILY Rx Instructions: administer into each nostril furosemide 40 mg tablet 40 mg PO DAILY lisinopril 40 mg tablet 40 mg PO DAILY metformin 1,000 mg tablet 1,000 mg PO BID omeprazole 20 mg capsule,delayed release(DR/EC) 20 mg PO DAILY PRN Rx Instructions: as needed for heart burn tamsulosin 0.4 mg capsule 0.4 mg PO BID Spiriva Respimat 2.5 mcg/actuation mist 2 inh inhalation DAILY trazodone 50 mg tablet See Rx Instructions PO DAILY Rx Instructions: Take 2 to 4 tablets by mouth at bedtime for insomnia No Action (DME) OneTouch Verio test strips Strip See Rx Instructions .ROUTE Rx Instructions: As directed Discharge Instructions Activity:: Activity as Tolerated Equipment/Supplies:: No Equipment Needed Diet:: As Tolerated Discharge Orders Discharge Orders: Discharge Order (Routine); Ordered 03/13/23 Ordered By: Josh Dee DS: Summary Time Spent with Patient providing and/or coordinating discharge services: Greater than 30 minutes Status at Discharge Functional status at discharge: independent ambulation Overall status at discharge: patient is back to baseline Mental Status: mental status grossly normal Speech and Movement: speech and movement normal Mood: congruent mood Affect: normal affect Quality:SDOH Health Related Social Needs: No Data to Display Exam Narrative Exam Narrative: well appearing older gentleman laying in bed in no acute distress, AOx4, heart RRR, lungs CTAB, abdomen obese, soft, non-tender, non-distended, left wrist in cast, left hip surgical wound without surrounding erythema or drainage Psych Mental Status: mental status grossly normal Speech and Movement: speech and movement normal Mood: congruent mood Affect: normal affect DS: Data Vitals/I&O Vitals and I&O: Vital Signs Temperature 98.4 F 03/12/23 23:38 Temperature Source Tympanic 03/12/23 23:38 Pulse 56 L 03/13/23 02:12 Pulse Rhythm Regular 03/12/23 20:00 Respiratory Rate 20 03/12/23 23:38 Respiratory Effort Non-Labored 03/12/23 20:00 Respiratory Depth Shallow 03/12/23 20:00 Respiratory Pattern Normal 03/12/23 20:00 Blood Pressure 156/71 H 03/13/23 02:12 Blood Pressure Position Supine 03/07/23 21:37 Pulse Oximetry 97 03/13/23 02:12 Respiratory End-tidal CO2 30 03/08/23 17:53 Oxygen Delivery Method Nasal Cannula 03/13/23 02:12 Oxygen Flow Rate 2 03/13/23 02:12 Pain Level 6 03/12/23 20:11 Comment 2L NC at sleep 03/13/23 02:12 Intake & Output 03/12/23 03/13/23 03/13/23 17:59 05:59 17:59 Intake Total 200 / 200 Output Total 850 / 850 850 / 1700 Balance -650 / -650 -850 / -1500 Intake: Oral 200 / 200 Output: Urine 850 / 850 850 / 1700 Stool 0 / 0 Other: Urine Color Yellow [place] Urine Appearance Clear Clear Comment stat lock coming loose, changed Data Completed and Pending Labs on day of discharge: Labs from last 24 hours 03/13/23 05:45 WBC 5.91 RBC 3.19 L Hgb 9.6 L D Hct 29.9 L MCV 94 MCH 30.1 MCHC 32.1 RDW 13.6 Plt Count 198 MPV 10.3 Immature Gran % 0.7 Neutrophils % 72.1 Lymphocytes % 15.4 Monocytes % 9.3 Eosinophils % 2.2 Basophils % 0.3 Nucleated RBC % 0.0 Absolute Neutrophils 4.26 Absolute Lymphocytes 0.91 L Absolute Monocytes 0.55 Absolute Eosinophils 0.13 Absolute Basophils 0.02 PFSH All Active Problems (Updated 03/10/23 @ 16:44 by Roly Nix MD) KAREN (acute kidney injury) (Acute) Fracture of left distal radius (Acute 03/07/23) Displaced intertrochanteric fracture of left femur (Acute 03/07/23) Wrist pain, acute (Acute) Discharge planning issues (Acute) DVT prophylaxis (Acute) Hypertension (Chronic) BPH loc w urin obs/LUTS (Acute) Type 2 diabetes mellitus (Acute) COPD (chronic obstructive pulmonary disease) (Chronic) Hip fracture, left (Acute) Medical History (Updated 03/10/23 @ 16:44 by Roly Nix MD) CALLY (obstructive sleep apnea) GERD (gastroesophageal reflux disease) Surgical History (Updated 03/08/23 @ 00:14 by Nehemiah Anna) History of cerebral aneurysm repair History of gastric bypass Family History Sister Cerebral aneurysm Social History (Updated 03/08/23 @ 00:16 by Nehemiah Anna) Smoking/Tobacco Use Status: Former Tobacco Use (Quit 2004, 45 pack year history) Tobacco: How many years used: 30 Smoking risk assessment performed?: Yes Alcohol Intake: former Drug use: Never Substance use type: does not use Housing: house Do you feel safe at home: Yes Do you feel safe in your relationship?: Yes Additional Social history: Lives in [place], [place] with Susie. 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
[2023-03-13 07:59] VITALS: BP 156/68; PULSE 54; RESP 14; TEMP 36.7; O2SAT 94
[2023-03-13] MEDS: Tiotropium Bromide-Respimat 10 PUFF INH 2 PUFF IH (08:27)
[2023-03-13] MEDS: Budesonide/Formoterol 160/4.5 6 GM 60 PUFF INH IH ×2 (08:27→19:58)
[2023-03-13 08:29] VITALS: O2SAT 94
[2023-03-13] MEDS: Insulin Aspart 300 UNITS/3 ML PEN SC ×3 (08:37→17:08)
[2023-03-13] MEDS: Sennosides/Docusate Sodium TAB 1 TAB PO (08:38)
[2023-03-13] MEDS: Omeprazole 20 MG CAPCR PO ×2 (08:38→19:31)
[2023-03-13] MEDS: metFORMIN 500 MG TAB 1000 MG PO ×2 (08:38→17:08)
[2023-03-13] MEDS: Multivitamin TAB 1 TAB PO (08:38)
[2023-03-13] MEDS: Atorvastatin 20 MG TAB PO (08:39)
[2023-03-13] MEDS: Finasteride 5 MG TAB PO (08:39)
[2023-03-13] MEDS: Acetaminophen 500 MG TAB 1000 MG PO ×3 (08:39→19:31)
[2023-03-13] MEDS: dilTIAZem CD 120 MG CAPCR 240 MG PO (08:39)
[2023-03-13] MEDS: Ferrous Sulfate 325 MG TAB PO ×2 (08:39→19:31)
[2023-03-13] MEDS: guaiFENesin 600 MG TABCR PO ×2 (08:39→19:31)
[2023-03-13] MEDS: Tamsulosin 0.4 MG CAPCR PO ×2 (08:39→19:31)
[2023-03-13] MEDS: Polyethylene Glycol 3350 17 GM PACKET PO (08:40)
[2023-03-13] MEDS: Enoxaparin 40 MG/0.4 ML SYR SC (08:40)
[2023-03-13] MEDS: Bisacodyl 10 MG SUPP PR (08:57)
[2023-03-13] MEDS: oxyCODONE 5 MG TAB PO ×2 (08:57→22:45)
--- NOTE | 2023-03-13 15:10 | CMPROGNOTE_ITS ---
Date of service: 03/13/23 Time of Service: 15:10 Care Management Progress Note Progress Note Text Progress Note Text: S/O: Remains inpatient, awaiting prior authorization of insurance to transfer to [facility]. CM left VM updating and continues to follow. A: Jairo is a 72 year old male admitted to [facility] on 03/07/23 for a left hip fracture. P: Anticipate Jairo will go to [facility], pending insurance prior approval. He will transport via facility w/c van. He will follow up with his PCP and discharge plan of care. CM will continue to follow. SDOH(Care Management) Screening Will the Patient Participate in the Screening?: Yes Do you worry about having a steady place to live?: no In the past 12 months, have you had to go without electric, gas, oil or water in your home?: no Have you or anyone in your house had to go without enough food to eat?: no Has lack of transportation kept you from medical appointments or from doing things needed for daily living?: no Has anyone in your support network made you feel unsafe for any reason?: no
[2023-03-13 15:25] VITALS: BP 157/66; PULSE 57; RESP 14; TEMP 36.9; O2SAT 95
--- NOTE | 2023-03-13 16:05 | CHAPLAIN ---
Jairo was resting in bed when I visited. His was with him. He's being discharged today to [facility] for rehab. He has a cast on his lower left arm now. I brought him a prayer shawl to take to [facility] with him. He seems a bit nervous about being discharged. His said she knows he'll get more PT at [facility] and get stronger to be able to return home.
--- NOTE | 2023-03-13 17:09 | W.PM.PROGNOT ---
Date of Service Date of service: 03/13/23 Time of Service: 17:10 Assessment and Plan Assessment and plan (1) Displaced intertrochanteric fracture of left femur: Status: Acute Assessment and plan: -s/p ORIF intramedullary nailing done by Dr. Hernadez POD#5 -Continue with physical therapy. -[facility]ed [facility] -continueprn oxycodone and he has prn iv dilaudid. Qualifiers: Encounter type: initial encounter Fracture type: closed Qualified Code(s): S72.142A - Displaced intertrochanteric fracture of left femur, initial encounter for closed fracture (2) Fracture of left distal radius: Status: Acute Assessment and plan: -apparently the minimally displaced fracture of the intraarticular area did not require any reduction but a fiberglass short arm cast was applied and a swa was used to bivalve the cast on the radial and ulnar sides to allow for any soft tissue edema. Qualifiers: Encounter type: initial encounter Fracture type: closed Fracture morphology: unspecified fracture morphology Qualified Code(s): S52.502A - Unspecified fracture of the lower end of left radius, initial encounter for closed fracture (3) KARNE (acute kidney injury): Status: Acute Assessment and plan: -BUN and creatinine rising at 42 and 1.8, lisinopril now on hold, will give judicious fluids and not restart his diuretics yet. repeat BMP in the a.m. Also stop Naprosyn. (4) COPD (chronic obstructive pulmonary disease): Status: Chronic Assessment and plan: -continue Spiriva and Symbicort while hospitalized along w/ use of prn DuoNeb aerosols. -continue oxygen especially during the night or whenever napping as he has CALLY and will not wear a CPAP Qualifiers: COPD type: chronic bronchitis Chronic bronchitis type: simple Qualified Code(s): J41.0 - Simple chronic bronchitis (5) Hypertension: Status: Chronic Assessment and plan: -not hypertensive here but rather he is borderline w/ BPw/ 102/57 and 97/57 and his BUN and creatinine are elevated at 42/1.8 -hold lisinopril Qualifiers: Hypertension type: primary hypertension Qualified Code(s): I10 - Essential (primary) hypertension (6) Type 2 diabetes mellitus: Status: Acute Assessment and plan: -on a diabetic heart healthy diet and change insulin coverage back to ac/hs using insulin sensitive scale Qualifiers: 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 he was intolerant to use of CPAP at home and he tells me that he was only borderline w/ regard to his need for it. (9) DVT prophylaxis: Status: Acute Assessment and plan: enoxaparin 40 mg SC while hospitalized, however, ortho may want to follow their own DVT schedule, i..e ASA 325 mg bid x 30 days, if he goes on this schedule then his omeprazole should be increased to 40 mg daily to prevent PUD (10) BPH loc w urin obs/LUTS: Status: Acute Assessment and plan: patient has chronic indwelling vergara catheter, changes monthly. Subjective Subjective Interval history since last seen: Patient states that he is doing well and understands that he will likely go to subacute rehab tomorrow once his prior authorization is cleared. Exam Narrative Exam Narrative: well appearing older gentleman laying in bed in no acute distress, AOx4, heart RRR, lungs CTAB, abdomen obese, soft, non-tender, non-distended, left wrist in cast, left hip surgical wound without surrounding erythema or drainage Objective Last Vital Signs Temp 98.4 F 03/13/23 15:25 Pulse 57 L 03/13/23 15:25 Resp 14 03/13/23 15:25 BP 157/66 H 03/13/23 15:25 Pulse Ox 95 03/13/23 15:25 Laboratory Results - last 24 hr 03/13/23 05:45 WBC 5.91 RBC 3.19 L Hgb 9.6 L D Hct 29.9 L MCV 94 MCH 30.1 MCHC 32.1 RDW 13.6 Plt Count 198 MPV 10.3 Immature Gran % 0.7 Neutrophils % 72.1 Lymphocytes % 15.4 Monocytes % 9.3 Eosinophils % 2.2 Basophils % 0.3 Nucleated RBC % 0.0 Absolute Neutrophils 4.26 Absolute Lymphocytes 0.91 L Absolute Monocytes 0.55 Absolute Eosinophils 0.13 Absolute Basophils 0.02 Time Spent with Patient Time Spent with Patient: >50 minutes Time was spent: preparing to see the patient(eg.review tests), obtaining and/or reviewing separately otained hiistory, ordering medications,tests, procedures, referring, communicating with other health home care assistant, indepentently interpreting results, counseling the patient and care coordination
[2023-03-13] MEDS: Normal Saline Flush 10 ML SYR IVP (19:43)
[2023-03-13] MEDS: Amitriptyline 50 MG TAB 300 MG PO (21:35)
[2023-03-13] MEDS: traZODone 50 MG TAB PO (21:36)
[2023-03-13 22:44] VITALS: BP 156/68; PULSE 60; RESP 18; TEMP 37.1; O2SAT 92
[2023-03-14 08:08] VITALS: BP 148/71; PULSE 56; RESP 18; TEMP 37.3; O2SAT 94
[2023-03-14] MEDS: Sennosides/Docusate Sodium TAB 1 TAB PO (08:14)
[2023-03-14] MEDS: metFORMIN 500 MG TAB 1000 MG PO (08:14)
[2023-03-14] MEDS: Enoxaparin 40 MG/0.4 ML SYR SC (08:14)
[2023-03-14] MEDS: guaiFENesin 600 MG TABCR PO (08:15)
[2023-03-14] MEDS: Atorvastatin 20 MG TAB PO (08:15)
[2023-03-14] MEDS: Finasteride 5 MG TAB PO (08:15)
[2023-03-14] MEDS: dilTIAZem CD 120 MG CAPCR 240 MG PO (08:15)
[2023-03-14] MEDS: Tamsulosin 0.4 MG CAPCR PO (08:15)
[2023-03-14] MEDS: Omeprazole 20 MG CAPCR PO (08:15)
[2023-03-14] MEDS: Acetaminophen 500 MG TAB 1000 MG PO (08:15)
[2023-03-14] MEDS: Multivitamin TAB 1 TAB PO (08:16)
[2023-03-14] MEDS: Ferrous Sulfate 325 MG TAB PO (08:19)
[2023-03-14] MEDS: Insulin Aspart 300 UNITS/3 ML PEN SC (08:19)
--- NOTE | 2023-03-14 08:19 | CMDISCH_ITS ---
Date of service: 03/14/23 Time of Service: 08:19 LACE Index Scoring Tool Questions: Length of Stay (in days): 7 - 13 Was the patient admitted via the E.D.?: Yes Comorbidities: Diabetes w/o Complication and Chronic Pulmonary Disease E.D. Visits: 0 Answers: Total Score: 11 Risk of Readmission: High Risk Care Management Discharge Plan Reason for Hospitalization: Left Hip fracture Discharge Plan: Jairo will go to [facility] for continued rehab. He will transport via facility w/c van. Patient/Family Education Needs: Review discharge instructions, discuss self care needs upon discharge Ask Me Three. Services Needed at Discharge: Jail Facility and Transportation SDOH Health Related Social Needs: No Data to Display
[2023-03-14] MEDS: Budesonide/Formoterol 160/4.5 6 GM 60 PUFF INH IH (08:21)
[2023-03-14 08:22] VITALS: O2SAT 95
[2023-03-14] MEDS: Polyethylene Glycol 3350 17 GM PACKET PO (08:22)
[2023-03-14] MEDS: Tiotropium Bromide-Respimat 10 PUFF INH 2 PUFF IH (08:22)
--- NOTE | 2023-03-14 09:20 | NUR.NOTE ---
Nursing Note: Report was given to [facility] for pending transfer. All questions were answered.
[2023-03-14 11:06] VITALS: BP 149/71; PULSE 63; RESP 16; TEMP 37.5; O2SAT 94
--- NOTE | 2023-03-14 11:08 | NUR.NOTE ---
Nursing Note: Patient was discharged via wheelchair van transport with , transporter Meño, and all belongings.
== END 2023-03-14 11:05 | disposition skilled nursing facility (03) | DRG 481 ==
LOC: ER 23:11 → MS 03-08 07:39
PROVIDERS: Family Medicine; Internal Medicine; Student in an Organized Health Care Education/Training Program; Admitting Provider Family Medicine; Emergency Provider Physician Assistant; Visit Provider Family Medicine
PROC: 0QS706Z Reposition Left Upper Femur with Intramedullary Internal Fixation Device, Open Approach (ICD-10-PCS; CPT 27245; principal; 2023-03-08 15:15)
DX: N13.8 Other obstructive and reflux uropathy; S52.572A Other intraarticular fracture of lower end of left radius, initial encounter for closed fracture; N17.9 Acute kidney failure, unspecified; Z68.41 Body mass index [BMI] 40.0-44.9, adult; E11.9 Type 2 diabetes mellitus without complications; S72.142A Displaced intertrochanteric fracture of left femur, initial encounter for closed fracture; I10 Essential (primary) hypertension; K21.9 Gastro-esophageal reflux disease without esophagitis; Z79.4 Long term (current) use of insulin; G47.33 Obstructive sleep apnea (adult) (pediatric); W10.9XXA Fall (on) (from) unspecified stairs and steps, initial encounter; E66.9 Obesity, unspecified; Z99.81 Dependence on supplemental oxygen; Z79.85 Long-term (current) use of injectable non-insulin antidiabetic drugs; Z79.84 Long term (current) use of oral hypoglycemic drugs; J44.89 Other specified chronic obstructive pulmonary disease
CPT/HCPCS: 27245; 25600; 00123; 36415; 73552; 76000; 80048; 94640; 96375; 97110; 97116; 97161; 97530; 99223; 99285; J1650; 73100; 73110; 73501; 73502; 73560; 85025; 93005; 93010; 94664; 94667; 94668; 94760; 99232; 99233; 99239; J0665; J0690; J1100; J1170; J1815; J2001; J2212; J2405; J2704; J3010; J7620

== ENCOUNTER 2023-03-19 11:46 | Outpatient (CLI) | payer MEDICARE, SELFPAY ==
--- NOTE | 2023-03-19 11:25 | DI.RAD_ITS ---
Exam(s) XR HIP LT AP LAT ONLY EXAM: XR HIP LT AP LAT ONLY INDICATION: F/U FRACTURE. COMPARISON: CR,XR XR HIP LT AP LAT ONLY from 03/12/2023 TECHNIQUE: 2D digital imaging was performed. Two views. FINDINGS: There has been no change in alignment of the proximal femoral fracture or hardware. No new abnormali ties. Bladder catheter noted. DATA REPOSITORY: RADIATION DOSE DELIVERED:
--- NOTE | 2023-03-19 11:25 | DI.RAD_ITS ---
Exam(s) XR WRIST LT LIMITED EXAM: XR WRIST LT LIMITED CLINICAL HISTORY: F/U FRACTURE. TECHNIQUE: 2D digital imaging was performed. Three views. COMPARISON: CR XR WRIST LT COMPLETE from 03/08/2023 FINDINGS: A cast is in place which somewhat obscures the bony detail. There has been no change in the alignmen t of the inter articular fracture of the distal radius. DATA REPOSITORY: RADIATION DOSE DELIVERED:
== END 2023-03-19 11:47 | disposition home or self-care (01) ==
LOC: DIORS 11:46
PROVIDERS: Visit Provider Student in an Organized Health Care Education/Training Program
DX: S72.142D Displaced intertrochanteric fracture of left femur, subsequent encounter for closed fracture with routine healing; S52.502D Unspecified fracture of the lower end of left radius, subsequent encounter for closed fracture with routine healing; X58.XXXD Exposure to other specified factors, subsequent encounter
CPT/HCPCS: 73100; 73502

== ENCOUNTER 2023-04-04 14:55 | Outpatient (CLI) | payer MEDICARE, SELFPAY ==
--- NOTE | 2023-04-04 11:56 | DI.RAD_ITS ---
Exam(s) XR WRIST LT LIMITED EXAM: XR WRIST LT LIMITED CLINICAL HISTORY: fracture follow up. TECHNIQUE: 2D digital imaging was performed of the left wrist. Two images were obtained. PA and la teral views were obtained. COMPARISON: CR XR WRIST LT LIMITED from 03/19/2023 FINDINGS: BONES: There has been no change in alignment of the distal radial fracture. The fracture line is les s well visualized consistent with some interval healing. No new fracture is seen. No bony destructi ve lesion is seen. JOINTS: The carpal bones are normally aligned. Degenerative changes are seen at the carpometacarpal j oints. SOFT TISSUE: Normal. IMPRESSION: Stable alignment of the distal left radial fracture. There is evidence of continued healing. DATA REPOSITORY: RADIATION DOSE DELIVERED:
--- NOTE | 2023-04-04 11:57 | DI.RAD_ITS ---
Exam(s) XR HIP LT AP LAT ONLY EXAM: XR HIP LT AP LAT ONLY CLINICAL HISTORY: surgery follow up. TECHNIQUE: 2D digital imaging was performed. Two images were obtained. AP and lateral views were ob tained. COMPARISON: CR XR HIP LT AP LAT ONLY from 03/19/2023 FINDINGS: BONES: There are stable post operative changes present. There is internal fixation of the intertroch anteric fracture of the left femur. No new fracture or dislocation. JOINTS: The joint spaces are well maintained. SOFT TISSUE: Vascular calcifications are present. IMPRESSION: Stable postoperative changes. DATA REPOSITORY: RADIATION DOSE DELIVERED:
== END 2023-04-04 14:56 | disposition home or self-care (01) ==
LOC: DIORS 14:55
PROVIDERS: Visit Provider Physician Assistant
DX: S72.142D Displaced intertrochanteric fracture of left femur, subsequent encounter for closed fracture with routine healing (principal); S52.502D Unspecified fracture of the lower end of left radius, subsequent encounter for closed fracture with routine healing; X58.XXXD Exposure to other specified factors, subsequent encounter
CPT/HCPCS: 73100; 73502

== ENCOUNTER 2023-05-01 14:38 | Outpatient (CLI) | payer MEDICARE, SELFPAY ==
--- NOTE | 2023-05-01 10:30 | DI.RAD_ITS ---
Exam(s) XR HIP PELVIS ADULT BL EXAM: XR HIP PELVIS ADULT BL CLINICAL HISTORY: F/U FRACTURE. TECHNIQUE: 2D digital imaging was performed. Three views. COMPARISON: CR XR HIP LT 1V from 03/08/2023 CR,XR XR HIP LT AP LAT ONLY from 03/12/2023 CR XR HIP LT AP LAT ONLY from 03/19/2023 CR XR HIP LT AP LAT ONLY from 04/04/2023 CR XR WRIST LT LIMITED from 05/01/2023 FINDINGS: BONES: Stable fracture and hardware alignment. Further healing of the intertrochanteric fracture. N o acute fracture is present. No bony destructive lesion is seen. JOINTS: The hip joint spaces are maintained. There is mild bilateral acetabular spurring. No disloc ation present. SI joints and pubic symphysis are unremarkable. SOFT TISSUE: Normal. IMPRESSION: Unremarkable stable fracture and hardware alignment. DATA REPOSITORY: RADIATION DOSE DELIVERED:
--- NOTE | 2023-05-01 10:30 | DI.RAD_ITS ---
Exam(s) XR WRIST LT LIMITED EXAM: XR WRIST LT LIMITED INDICATION: F/U FRACTURE. COMPARISON: CR XR WRIST LT LIMITED from 04/04/2023 TECHNIQUE: 2D digital imaging was performed. Two views. FINDINGS: There has been no change in the alignment of the distal radial fracture. There is increased healing. No new abnormalities are seen. DATA REPOSITORY: RADIATION DOSE DELIVERED:
== END 2023-05-01 14:39 | disposition home or self-care (01) ==
LOC: DIORS 14:38
PROVIDERS: Visit Provider Student in an Organized Health Care Education/Training Program
DX: S72.142D Displaced intertrochanteric fracture of left femur, subsequent encounter for closed fracture with routine healing (principal); S52.502D Unspecified fracture of the lower end of left radius, subsequent encounter for closed fracture with routine healing; S72.111D Displaced fracture of greater trochanter of right femur, subsequent encounter for closed fracture with routine healing; S82.001D Unspecified fracture of right patella, subsequent encounter for closed fracture with routine healing; X58.XXXD Exposure to other specified factors, subsequent encounter
CPT/HCPCS: 73521; 73100

== ENCOUNTER 2023-06-26 15:40 | Outpatient (CLI) | payer MEDICARE, SELFPAY ==
--- NOTE | 2023-06-26 09:30 | DI.RAD_ITS ---
Exam(s) XR HIP LT AP LAT ONLY XR HIP RT AP LAT ONLY EXAM: XR HIP RT AP LAT ONLY and XR hip LT AP and Lat CLINICAL HISTORY: F/U FRACTURE. TECHNIQUE: 2D digital imaging was performed of the right hip. Four images were obtained. AP pelvis and lateral right hip views were obtained. COMPARISON: CR XR HIP RIGHT W PELVIS from 04/11/2023 CR XR HIP PELVIS ADULT BL from 05/01/2023 FINDINGS: BONES: There appears to be a lucency through the base of the greater trochanter with mild medial disp lacement of the larger superior aspect suspicious for a mildly displaced fracture. There is again se en an intramedullary jeancarlos and screw transfixing the proximal left femoral fracture. No change in alig nment the orthopedic hardware or fracture components is noted. JOINTS: No dislocation present. There is mild narrowing of the hip joints bilaterally. SOFT TISSUE: Vascular calcifications are present. IMPRESSION: 1. Stable appearance of the left femoral fracture and orthopedic hardware. 2. Findings suspicious for minimally displaced fracture through the right greater trochanter. DATA REPOSITORY: RADIATION DOSE DELIVERED:
--- NOTE | 2023-06-26 09:30 | DI.RAD_ITS ---
Exam(s) XR KNEE RT 2V AP,LAT EXAM: XR KNEE RT 2V AP,LAT CLINICAL HISTORY: F/U FRACTURE. TECHNIQUE: 2D digital imaging was performed of the right knee. Two views obtained. AP and lateral views were obtained. COMPARISON: CR XR KNEE 3 VIEW RIGHT from 04/11/2023 CR XR HIP LT AP LAT ONLY from 06/26/2023 FINDINGS: BONES: The lateral patellar fracture is visualized on the AP view. No new fracture is seen. No bony d estructive lesion is seen. JOINTS: There is moderate narrowing of the medial femoral tibial joint. Osteophytes are seen in the medial femoral tibial joint in the posterior patella. No significant joint effusion is seen. SOFT TISSUE: Vascular calcifications are present. IMPRESSION: 1. Degenerative changes are seen in the right knee. 2. Stable lateral patellar fracture. DATA REPOSITORY: RADIATION DOSE DELIVERED:
--- NOTE | 2023-06-26 09:30 | DI.RAD_ITS ---
Exam(s) XR WRIST LT LIMITED EXAM: XR WRIST LT LIMITED CLINICAL HISTORY: F/U FRACTURE. TECHNIQUE: 2D digital imaging was performed of the left wrist. Two images were obtained. PA and la teral views were obtained. COMPARISON: CR XR WRIST LT LIMITED from 05/01/2023 FINDINGS: BONES: There has been continued healing of the fracture of the distal left radial metaphysis. The fr acture is much less well visualized on the current examination. No bony destructive lesion is seen. No new fracture is identified. JOINTS: The carpal bones are normally aligned. SOFT TISSUE: Vascular calcifications are present. IMPRESSION: Continued healing of the distal radial fracture. DATA REPOSITORY: RADIATION DOSE DELIVERED:
== END 2023-06-26 15:41 | disposition home or self-care (01) ==
LOC: DIORS 15:40
PROVIDERS: Visit Provider Student in an Organized Health Care Education/Training Program
DX: S72.142D Displaced intertrochanteric fracture of left femur, subsequent encounter for closed fracture with routine healing; S52.502D Unspecified fracture of the lower end of left radius, subsequent encounter for closed fracture with routine healing; S72.111D Displaced fracture of greater trochanter of right femur, subsequent encounter for closed fracture with routine healing; S82.001D Unspecified fracture of right patella, subsequent encounter for closed fracture with routine healing; X58.XXXD Exposure to other specified factors, subsequent encounter
CPT/HCPCS: 99214; 73100; 73502; 73560

== ENCOUNTER 2023-07-16 13:16 | Outpatient (CLI) | payer MEDICARE, SELFPAY ==
--- NOTE | 2023-07-16 13:00 | DI.RAD_ITS ---
Exam(s) XR HIP LT AP LAT ONLY EXAM: XR HIP LT AP LAT ONLY CLINICAL HISTORY: F/U LEFT HIP PAIN. TECHNIQUE: 2D digital imaging was performed of the left hip. Two views were obtained. AP and later al left hip views were obtained. COMPARISON: CR XR HIP LT AP LAT ONLY from 06/26/2023 FINDINGS: BONES: No acute fracture is present. No bony destructive lesion is seen. There is again seen an intra medullary jeancarlos in the proximal left femur. No lucencies are seen in or about the orthopedic hardware. JOINTS: No dislocation present. There is mild joint space narrowing of the left hip. SOFT TISSUE: Vascular calcifications are present. IMPRESSION: Stable postsurgical and posttraumatic changes of the left hip. No acute abnormality. DATA REPOSITORY: RADIATION DOSE DELIVERED:
== END 2023-07-16 13:17 | disposition home or self-care (01) ==
LOC: DIORS 13:18
PROVIDERS: Visit Provider Student in an Organized Health Care Education/Training Program
DX: S72.142D Displaced intertrochanteric fracture of left femur, subsequent encounter for closed fracture with routine healing; T84.84XD Pain due to internal orthopedic prosthetic devices, implants and grafts, subsequent encounter; X58.XXXD Exposure to other specified factors, subsequent encounter
CPT/HCPCS: 99213; 73502

== ENCOUNTER → 2023-07-30 00:59 | Outpatient (CLI) | payer MEDICARE, SELFPAY ==
--- NOTE | 2023-07-30 07:15 | DI.CT_ITS ---
Exam(s) CT LOWER EXTREMITY LT WO EXAM: CT LOWER EXTREMITY LT WO CLINICAL HISTORY: PAINFUL L HIP AFTER IM NAIL 03/08,T84.84xa. TECHNIQUE: Imaging Protocol: Axial computed tomography images with coronal and sagittal reformatted images were created and reviewed. CONTRAST MATERIAL: Intravenous: Omnipaque 350 Contrast volume:structured data in ml Contrast route:I V - Oral: yes / no COMPARISON: CR XR HIP PELVIS ADULT BL from 05/01/2023 CR XR HIP LT AP LAT ONLY from 07/16/2023 FINDINGS: Bones: There is a lag screw across a healing intertrochanteric fracture site. Fracture line still vi sible. Hardware appears satisfactory. No evidence of osteomyelitis. There is moderate narrowing of the hip joint space. IMPRESSION: Left hip hardware across healing intertrochanteric fracture site. Fracture line still visible. RADIATION DOSE DELIVERED: Total DLP DATA REPOSITORY: All CT scans at this facility are submitted to the National Radiology Data Registry (NRDR) Dose Index Registry (DIR) with the [employer] (A[employer]). RADIATION OPTIMIZATION: All CT scans at this facility use at least one of these dose optimization te chniques: automated exposure control; mA and/or kV adjustment per patient size (includes targeted exa ms where dose is matched to clinical indication); or iterative reconstruction.
== END ==
PROVIDERS: Visit Provider Student in an Organized Health Care Education/Training Program
DX: T84.84XA Pain due to internal orthopedic prosthetic devices, implants and grafts, initial encounter (principal); S72.111D Displaced fracture of greater trochanter of right femur, subsequent encounter for closed fracture with routine healing; X58.XXXD Exposure to other specified factors, subsequent encounter
CPT/HCPCS: 73700

== ENCOUNTER 2023-08-07 10:37 | Outpatient (CLI) | payer MEDICARE, SELFPAY ==
[2023-08-07 10:55] LABS: Abs Immature Grans 0.04 10^3/uL (0.0-0.06); Absolute Basophil Count 0.03 10^3/uL (0.0-0.2); Absolute Eosinophil Count 0.05 10^3/uL (0.0-0.7); Absolute Lymphocyte Count 1.49 10^3/uL (1.2-3.4); Absolute Monocyte Count 0.46 10^3/uL (0.1-0.8); Absolute Neutrophil Count 6.02 10^3/uL (1.2-6.7); Basophils % 0.4 %; Eosinophils % 0.6 %; HGB 12.4 g/dL (13.5-17.5); Immature Grans % 0.5 %; Lymphocytes % 18.4 %; MCH 30.8 pg (27.0-33.0); MCHC 33.5 % (32.0-36.0); MCV 92 fL (80-95); MPV 9.6 fL (8.0-11.0); Monocytes % 5.7 %; Neutrophils % 74.4 %; Platelet Count 262 10^3/uL (130-400); RBC 4.03 10^6/uL (4.36-5.78); RDW 13.2 % (11.8-14.1); WBC 8.09 10^3/uL (4.4-10.8)
[2023-08-07 10:59] LABS: ESR 25 mm/hr (0-20)
[2023-08-07 11:06] LABS: Hemoglobin A1C 6.6 % (<5.7)
[2023-08-07 12:04] LABS: ALT 22 U/L (16-63); AST 15 U/L (15-37); Albumin 2.4 g/dL (3.4-5.0); Alkaline Phosphatase 181 U/L (46-116); Anion Gap 7.8 mmol/L (3-11); BUN 49 mg/dL (7-18); Bilirubin, Total 0.67 mg/dL (0.2-1.0); CO2 30.2 mmol/L (21.0-32.0); CREATININE 1.4 mg/dL (0.70-1.30); Calcium 8.5 mg/dL (8.5-10.1); Chloride 100 mmol/L (98-107); Glucose 221 mg/dL (74-106); Potassium 4.1 mmol/L (3.5-5.1); Sodium 138 mmol/L (136-145); TSH (W/Ref FT4) 2.06 uIU/mL (0.36-3.74); Total Protein 6.7 g/dL (6.4-8.2)
[2023-08-07 12:05] LABS: C-Reactive Protein < 0.50 mg/dL (<or=0.5)
[2023-08-07 12:38] LABS: Vitamin D 25 Total 36.7 ng/mL (30-100)
[2023-08-07 20:03] LABS: Parathyroid Hormone,Intact 67 pg/mL (19-88)
== END 2023-08-07 10:38 | disposition home or self-care (01) ==
LOC: LBO 10:37
PROVIDERS: Visit Provider Student in an Organized Health Care Education/Training Program
DX: S72.002K Fracture of unspecified part of neck of left femur, subsequent encounter for closed fracture with nonunion (principal)
CPT/HCPCS: 36415; 80053; 82306; 85652; 83036; 83970; 84443; 85025; 86140

== ENCOUNTER 2023-08-09 12:58 | Inpatient (IN) | payer MEDICARE, SELFPAY ==
[2023-08-09] VITALS (22 sets, daily range): BP systolic 97–144; BP diastolic 46–71; PULSE 50–67; RESP 13–20; TEMP 36.2–36.7; O2SAT 94–97; BMI 34.1
--- NOTE | 2023-08-09 07:27 | W.PM.OP ---
Date of service: 08/09/23 Time of Service: 17:00 Operative Note Operative Note DATE OF PROCEDURE: 08/09/23 PRE-OP DIAGNOSIS: 1. Left hip intertrochanteric fracture delayed union/nonunion 2. Symptomatic TFNA blade POST-OP DIAGNOSIS: same PROCEDURE: 1. Left hip intramedullary nail revision fixation, CPT #67246 2. Removal of deep implant, CPT #09913 SURGEON: Christopher Hernadez CURLING MACHINE OPERATOR: Jasmyn Morton ANESTHESIA TYPE: Local By Surgeon and General LMA/ETT Refer to Anesthesia Record COMPLICATIONS: None Patient was transported to: PACU Patient's condition: stable Implants: Synthes TFNA [id number] 130 deg and 42 mm 5.0mm distal locking screw stayed in 115 mm TFNA helical blade removed and replaced with 95 mm TFNA screw Indications: Please see medical record for details Findings: Prominent helical blade, which had shortened with the fracture about 20 mm. No gross motion although not vigorously tested at the fracture site possibly consistent with partial healing. Procedure Description: In the operating room, general anesthesia was induced. The patient was transferred and positioned supine on the fracture table. All bony prominences were well padded. Pre-operative antibiotics were administered. C-arm fluoroscopy was used to confirm appropriate provisional fracture reduction with traction and internal rotation. The correct patient, procedure, and side of the procedure were all verified prior to incision. The hip was prepped and draped in the usual sterile fashion. Local anesthetic with epinephrine was infiltrated about the previous incision start point as well as later about the lateral entry site for cephalomedullary fixation. The previous nail and blade entry incisions were reopened sharply and blunt dissection used to establish the path. The tip of the implant in the trochanter was localized with a guidewire. The jig was slid over this wire, carefully properly oriented, the guidewire move, and the screw used to lock the jig to the existing nail. The nail was blocked by prominent soft tissue and bone. Various rondure's, all, and reamers had to be used to clear the path. The jig was then locked onto the nail. The tip of the prominent blade was then localized, but significantly covered and adhered to thickened iliotibial band. The IT band was incised longitudinally, vastus lateralis muscular branches had to be coagulated, the nail was cleared of soft tissue and extraction instrument attached. The flexible screwdriver was then passed into the nail locking mechanism and completely disengaged. Gentle mallet blows were used to remove the blade in entirety. A guidewire was replaced and the path and used to measure length for the new fixation, which was going to be different with a screw for better bone fixation. 25 millimeters was subtracted from the blade for a screw. The tap was used to confirm this screw length. The screw was then inserted over the guidewire. The locking mechanism engaged and then backed up 180 degrees to allow for rotationally controlled sliding and additional compression to allow complete healing of the fracture. The cephalomedullary aiming guide was removed. The jig was removed from the nail. Final AP and lateral fluoroscopic images were taken and confirmed maintained fracture alignment and appropriate new implant placement. All wounds were copiously irrigated. Deep layers were closed using 0 vicryl in an interrupted fashion. Subcutaneous tissue was closed using 2-0 monocryl in a buried interrupted fashion. Skin glue was applied to all incisions. Incisions were covered with Mepilex Band-Aids. The patient awoke from anesthesia without complication and was transferred to the recovery room in stable condition.
[2023-08-09] MEDS: Lactated Ringers 1,000 ML 30 ML IV (13:44)
--- NOTE | 2023-08-09 15:39 | ANES.PREOP_ITS ---
General Info Date of Service Date Performed: 08/09/23 Height: 5 ft 10 in Weight: 107.9 kg Body Mass Index (BMI): 34.1 Surgical Procedure: Operation Date: 08/09/23 15:45 Proposed Procedure Side Surgeon p Hip TFNA Revision Left Christopher Hernadez MD Meds Allergies and Home Medications Allergies Allergy/AdvReac Type Severity Reaction Status Date / Time duloxetine Allergy Other (See Verified 08/09/23 13:26 Comment) sertraline Allergy Hives Verified 08/09/23 13:26 morphine AdvReac Visual Verified 08/09/23 13:26 Disturbances ivory soap AdvReac Skin Rash Uncoded 08/09/23 13:26 Home Medication Medication Instructions Recorded atorvastatin 20 mg tablet 20 mg PO DAILY 03/07/23 blood sugar diagnostic (OneTouch 03/07/23 Verio test strips) budesonide 160 mcg-glycopyr 9 2 inh inhalation BID 03/07/23 mcg-formot 4.8 mcg/actuation HFA inhaler ([employer]) cyclobenzaprine 10 mg tablet 10 mg PO TID PRN 03/07/23 diltiazem HCl 240 mg capsule,24 240 mg PO DAILY 03/07/23 hr,extended release dulaglutide 0.75 mg/0.5 mL 0.75 mg subcut QWEEK 03/07/23 subcutaneous pen injector finasteride 5 mg tablet 5 mg PO DAILY 03/07/23 fluticasone propionate 50 1 spray intranasal DAILY 03/07/23 mcg/actuation nasal spray,suspension (Allergy Relief (fluticasone)) furosemide 40 mg tablet 40 mg PO DAILY 03/07/23 lisinopril 40 mg tablet 40 mg PO DAILY 03/07/23 metformin 1,000 mg tablet 1,000 mg PO BID 03/07/23 omeprazole 20 mg capsule,delayed 20 mg PO DAILY PRN 03/07/23 release tamsulosin 0.4 mg capsule 0.4 mg PO BID 03/07/23 tiotropium bromide 2.5 2 inh inhalation DAILY 03/07/23 mcg/actuation mist for inhalation (Spiriva Respimat) Current Visit Medications: Current Medications Generic Name Dose Route Start Last Admin Trade Name Freq PRN Reason Stop Dose Admin Ringer's Solution 1,000 mls @ 30 mls/hr 08/09/23 06:00 08/09/23 13:44 IV 08/09/23 23:59 30 mls/hr INFUSION CHAU Administration Cefazolin Sodium 3,000 mg/ 100 mls @ 200 mls/hr 08/09/23 06:00 Sodium Chloride IVPB 08/09/23 23:59 PREOP CHAU Tranexamic Acid/Sodium Chloride 1,000 mg in 100 mls @ 600 mls/hr 08/09/23 06:00 IVPB 08/09/23 23:59 PREOP CHAU IV Miscellaneous Supplies 1 each 08/09/23 06:00 Iv Access IV 08/09/23 23:59 DIRECTED CHUA Sodium Chloride 0 ml 08/09/23 06:00 Normal Saline Flush 10 Ml Syr IV 08/09/23 23:59 PRN PRN Sodium Chloride 0 ml 08/09/23 06:00 Normal Saline 10 Ml Vial IJ 08/09/23 23:59 DIRECTED PRN Sterile Water 0 ml 08/09/23 06:00 Water,Injection,Sterile 10 Ml Vial IJ 08/09/23 23:59 DIRECTED PRN PFSH Active Problems Active Problems: Problem Status Onset Code 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 states When they were doing a lower GI on me I came to and my oxygen levels dropped to 70 Surgical History Surgical History History of cerebral aneurysm repair 2004 History of gastric bypass Tobacco Smoking/Tobacco Use Status: Former Tobacco Use Alcohol Alcohol Intake: former Substance Use Substance use: Never Substance use type: does not use Vital Signs and Lab Results Vital Signs Most Recent Vital Signs in EMR: Most Recent Vital Signs Temp Pulse Resp BP Pulse Ox 36.2 C L 60 16 144/65 H 96 08/09/23 13:18 08/09/23 13:18 08/09/23 13:18 08/09/23 13:18 08/09/23 13:18 Point of Care Results Point of Care Results: Finger Stick Blood Glucose 123 08/09/23 13:31 Lab Results Blood Type / Crossmatch: No Data to Display Complete Blood Count: White Blood Count 8.09 10^3/uL (4.4-10.8) 08/07/23 10:30 Red Blood Count 4.03 10^6/uL (4.36-5.78) L 08/07/23 10:30 Hemoglobin 12.4 g/dL (13.5-17.5) L 08/07/23 10:30 Hematocrit 37.0 % (40.0-50.0) L 08/07/23 10:30 Platelet Count 262 10^3/uL (130-400) 08/07/23 10:30 Complete Metabolic Panel: Sodium 138 mmol/L (136-145) 08/07/23 10:30 Potassium 4.1 mmol/L (3.5-5.1) 08/07/23 10:30 Chloride 100 mmol/L (98-107) 08/07/23 10:30 Carbon Dioxide 30.2 mmol/L (21.0-32.0) 08/07/23 10:30 BUN 49 mg/dL (7-18) H 08/07/23 10:30 Creatinine 1.4 mg/dL (0.70-1.30) H 08/07/23 10:30 Est GFR (CKD-EPI 2020) 53.40 (mL/min/1.73m2) 08/07/23 10:30 Calcium 8.5 mg/dL (8.5-10.1) 08/07/23 10:30 Albumin 2.4 g/dL (3.4-5.0) L 08/07/23 10:30 Glucose 221 mg/dL (74-106) H 08/07/23 10:30 Hemoglobin A1c 6.6 % (<5.7) H 08/07/23 10:30 C-Reactive Protein < 0.50 mg/dL (<or=0.5) 08/07/23 10:30 Liver Function Panel: Alanine Aminotransferase (ALT/SGPT) 22 U/L (16-63) 08/07/23 10: 30 Aspartate Amino Transf (AST/SGOT) 15 U/L (15-37) 08/07/23 10:30 Coagulation Panel: No Data to Display Cardiac Panel: No Data to Display Arterial Blood Gas: No Data to Display Venous Blood Gas: No Data to Display Pancreas Panel: No Data to Display Thyroid Panel: Thyroid Stimulating Hormone (TSH) 2.06 uIU/mL (0.36-3.74) 08/06 10:30 Infectious Disease: No Data to Display Blood Cultures: No Data to Display Toxicology Panel: No Data to Display Imaging and Studies Imaging and Studies Study information below may be from another EMR and interpreted by another provider. Please see original notes in EMR for more complete details. EKG Summary: 03/08/2023: Exam: Resting ECG Reason for Exam: Pre-op Patient Location: I HR:62 bpm ECG Measurements Heart Rate 62 AXIS VT 162 P -43 QRSd 113 QRS -27 QT 445 T-26 QTc 452 Conclusion Sinus rhythm...normal P axis, V-rate 50- 99 Incomplete left bundle branch block...QRSd>110mS, terminal axis(-90,-1) Probable left ventricular hypertrophy...(RaVL+SV3)xQRSd >280 Baseline wander in lead(s) V4,V6 I have reviewed and interpreted ECG and agree with software generated interpretation. Echocardiogram Summary: 04/17/2022 ([facility] [place], per Epic report): EF 59%, mild aortic stenosis (mean gradient 13 mmHg), LA severely dilated Anesthesia Assessment and Plan Anesthesia History Personal History: No History of Anesthesia Complications Family History: No Family History of Anesthesia Complications Exercise Tolerance Exercise Tolerance: Metabolic Equivalents<4 Pertinent Negatives Pertinent Negatives: No Symptoms of GERD Cardiac & Pulmonary Exam Cardiac Exam: Normal S1/S2 Heart Sounds Pulmonary Exam: Clear Bilateral Breath Sounds (decreased bases) Implantable Cardiac Device Does patient have a Pacemaker or an ICD?: No Airway Exam Known Difficult Airway: No Mallampati Class: 3 Mouth Opening: Normal (> 3cm) Thyromental Distance: Greater than 3 cm Neck Range of Motion: Full ROM Neck Circumference: Thick Teeth Condition: Edentulous ASA Classification ASA Score: ASA 3 Emergency Case?: No NPO Status NPO Status: NPO Clears >2 hours, Solids >8 hours Anesthesia Plan Resuscitation Status: Full Code Anesthesia Technique: General Anesthesia Airway Planned: Endotracheal Tube Monitors Used: Standard Monitors
--- NOTE | 2023-08-09 17:01 | W.PM.DS.N ---
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: Status: Acute Discharge Plan Disposition Patient Disposition: Home Condition: Stable Discharge Details Admit Date/Time: 08/09/23 19:44 Admit Provider: Christopher Hernadez Attending Provider: Christopher Hernadez Primary Care Provider: Margarette Kumar Home Meds and New Rx's Prescriptions: New omeprazole 40 mg capsule,delayed release(DR/EC) 40 mg PO DAILY Qty: 14 0RF tramadol 50 mg tablet 50 mg PO Q6H PRN (Reason: severe pain) Qty: 12 0RF aspirin 325 mg tablet,delayed release (DR/EC) 325 mg PO DAILY 14 Days Qty: 14 0RF naproxen 250 mg tablet 250 mg PO BID PRNQty: 20 0RF Rx Instructions: take with a meal Continued atorvastatin 20 mg tablet 20 mg PO QPM Breztri [employer] 160-9-4.8 mcg/actuation HFA aerosol inhaler 2 inh inhalation BID cyclobenzaprine 10 mg tablet 10 mg PO TID PRN Rx Instructions: as needed for muscle spasm diltiazem HCl 240 mg capsule,extended release 24 hr 240 mg PO QPM dulaglutide 0.75 mg/0.5 mL pen injector 0.75 mg subcut QWEEK finasteride 5 mg tablet 5 mg PO QPM fluticasone propionate [Allergy Relief (fluticasone)] 50 mcg/actuation spray,suspension 1 spray intranasal DAILY Rx Instructions: administer into each nostril furosemide 40 mg tablet 40 mg PO DAILY lisinopril 40 mg tablet 40 mg PO QPM metformin 1,000 mg tablet 1,000 mg PO BID (DME) OneTouch Verio test strips Strip See Rx Instructions .Route Rx Instructions: As directed tamsulosin 0.4 mg capsule 0.4 mg PO BID Spiriva Respimat 2.5 mcg/actuation mist 2 inh inhalation DAILY Discontinued omeprazole 20 mg capsule,delayed release(DR/EC) 20 mg PO DAILY PRN Rx Instructions: as needed for heart burn No Action albuterol sulfate 90 mcg/actuation HFA aerosol inhaler 2 puff INHALATION Q6H PRN (Reason: sob, wheezing) Patient Comments: INHALE 2 PUFFS BY MOUTH EVERY 4 HOURS NEEDED FOR WHEEZING,SHORTNESS OF BREATH OR COUGH,USE WITH SPACER mirtazapine 30 mg tablet 30 mg PO QHS Patient Comments: TAKE 1 TABLET BY MOUTH ONCE DAILY AT BEDTIME FOR MOOD AND SLEEP CBD melatonin sleep gummies 10 mg gum 10 mg PO HS PRN (Reason: insomnia) Discharge Instructions Additional Instructions: Surgery 08/09/23 Left hip nail revision TFNA blade to screw for prominent blade and delayed union Activity: Weightbearing as tolerated left hip with a walker. Gently increase hip motion and activity level over the next 6-8 weeks. A physical therapy prescription will be provided separately in the office of follow-up. Prescriptions: Aspirin 325 mg take 1 daily to prevent a blood clot for 2 weeks. Use omeprazole 40 mg daily while taking aspirin to prevent minimize gastric reflux. Naproxen 250 mg take 1 every 12 hours with a meal as needed for moderate pain Tramadol 50 mg take 1 every 6 hours as needed for severe pain You may use [id number] Tylenol (acetaminophen) as needed for mild pain. These pain medications may be taken all at once or in different combinations as needed. Also, recommend Colace (docusate) as a stool softener as surgery and pain medicine cause constipation. You may try [id number] diphenhydramine (Benadryl) 25-50 mg nightly as a sleep aid Dressings: Leave dressings in place. Please keep clean and dry. If you do shower and they get wet, remove and replace with Band-Aids. Follow-up: 10-[address] Hernadez You may take off the leg compression stockings this evening at home. You may also leave them on a few days longer if you have a history of leg swelling or edema. Let us know right away if you develop any redness, drainage, fevers, chest pain, or trouble breathing. Do not drink alcohol or drive for at least 24 hours after anesthesia. Please call the office during business hours with any questions or concerns. Activity:: WBAT with walker Equipment/Supplies:: Walker Diet:: Diabetic heart healthy Discharge Orders Discharge Orders: Discharge Order (Routine); Ordered 08/10/23 Ordered By: Christopher Hernadez DS: Summary Time Spent with Patient providing and/or coordinating discharge services: Less than 30 minutes Status at Discharge Functional status at discharge: uses cane/walker Overall status at discharge: patient is progressing back to baseline Mental Status: mental status grossly normal Speech and Movement: speech and movement normal Mood: congruent mood Affect: normal affect Quality:SDOH Health Related Social Needs: No Data to Display Exam Narrative Exam Narrative: Patient remarkably comfortable, happy, feels no pain or discomfort really about his left hip. Walked very well today. Eager for discharge home. Feels great like the symptomatic prominent screw was causing majority of problems. Really happy with his lack of weightbearing and resting hip discomfort. Feels well. Left hip dressings clean dry intact. Left thigh without really any bruising or swelling yet. Moderate range of motion okay. Warm and well-perfused throughout. Psych Mental Status: mental status grossly normal Speech and Movement: speech and movement normal Mood: congruent mood Affect: normal affect DS: Data Vitals/I&O Vitals and I&O: Vital Signs Temperature 97.2 F L 08/09/23 13:18 Pulse 60 08/09/23 13:18 Pulse Rhythm Regular 08/09/23 13:18 Respiratory Rate 16 08/09/23 13:18 Respiratory Depth Normal 08/09/23 13:18 Blood Pressure 144/65 H 08/09/23 13:18 Pulse Oximetry 96 08/09/23 13:18 Oxygen Delivery Method Room Air 08/09/23 13:18 Oxygen Flow Rate 0 08/09/23 13:18 Pain Level 6 08/09/23 13:18 Intake & Output 08/08/23 08/09/23 08/09/23 23:59 11:59 23:59 Weight 308 lb 15.998 oz 237 lb 14.06 oz PFSH All Active Problems 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 (Acute) Painful orthopaedic hardware (Acute) Right patella fracture (Acute) Fracture of greater trochanter of right femur (Acute) Fracture of left distal radius (Acute 03/07/23) Displaced intertrochanteric fracture of left femur (Acute 03/07/23) Hypertension (Chronic) BPH loc w urin obs/LUTS (Acute) Type 2 diabetes mellitus (Acute) COPD (chronic obstructive pulmonary disease) (Chronic) Hip fracture, left (Acute) Medical History CALLY (obstructive sleep apnea) GERD (gastroesophageal reflux disease) Surgical History History of cerebral aneurysm repair 2004 History of gastric bypass Family History Sister Cerebral aneurysm Social History Smoking/Tobacco Use Status: Former Tobacco Use Quit Date: 02/12/04 Tobacco: How many years used: 30 Smoking risk assessment performed?: Yes Alcohol Intake: former Drug use: Never Substance use type: does not use Housing: house Additional Social history: [facility] Time Spent with Patient Time Spent with Patient: <45 minutes Time was spent: preparing to see the patient(eg.review tests), obtaining and/or reviewing separately otained hiistory, ordering medications,tests, procedures, counseling the patient and care coordination
--- NOTE | 2023-08-09 17:01 | W.PM.PROGNOT ---
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: Status: Acute Assessment and plan: 73-year-old male postop day #0 status post Left hip nail revision TFNA blade to screw for prominent blade and delayed union Comfortable, still waking up in PACU, dressings intact, thigh compartments soft, warm well-perfused throughout Complete 24 hours postoperative antibiotics Pain control-Multimodal Physical therapy ordered: Weightbearing as tolerated with assist device Maintain chronic indwelling catheter Will start chemical DVT prophylaxis tomorrow assuming hemodynamically stable Continue mechanical DVT prophylaxis with SCDs and/or CARLOS kelley Follow-up with Dr. Hernadez as an outpatient in 10-14 days Discharge home when appropriate (2) Painful orthopaedic hardware: Status: Acute Objective Last Vital Signs Temp 97.2 F L 08/09/23 13:18 Pulse 60 08/09/23 13:18 Resp 16 08/09/23 13:18 BP 144/65 H 08/09/23 13:18 Pulse Ox 96 08/09/23 13:18 Time Spent with Patient Time Spent with Patient: <25 minutes Time was spent: preparing to see the patient(eg.review tests), indepentently interpreting results, counseling the patient and care coordination
[2023-08-09] MEDS: ceFAZolin 3,000 MG in Normal Saline 100 ML 200 MG IVPB (17:22)
[2023-08-09] MEDS: TRANEXAMIC ACID/SOD. CHL. 1,000 MG/100 ML BAG 600 MG IVPB (17:35)
[2023-08-09] MEDS: Bupivacaine 0.25% Pres-Free W/EPI 30 ML VIAL (17:52)
--- NOTE | 2023-08-09 19:09 | DI.RAD_ITS ---
Exam(s) XR HIP LT IN OR EXAM: XR HIP LT IN OR CLINICAL HISTORY: Displaced intertrochanteric fracture of left femu. TECHNIQUE: 2D digital imaging was performed. COMPARISON: No exams were available for comparison FINDINGS: Fluoroscopy provided during ORIF of left hip fracture. See procedure report for details. IMPRESSION: Radiation exposure index/cumulative dose: moe Bustos= 10.137 mGy DATA REPOSITORY: RADIATION DOSE DELIVERED:
--- NOTE | 2023-08-09 19:57 | W.ANESPOSTOP ---
Postoperative Evaluation Date, Time and Location Date Performed: 08/09/23 Time Performed: 19:57 Patient Location: PACU Vital Signs Most Recent Imported Vital Signs: Most Recent Vital Signs Temp Pulse Resp BP Pulse Ox 36.6 C 50 L 17 124/46 L 97 08/09/23 19:36 08/09/23 19:46 08/09/23 19:46 08/09/23 19:46 08/09/23 19:46 Pain Score Most Recent Pain Score: Most Recent Pain Score Pain Level 6 08/09/23 13:18 Assessment Mental Status: Awake (Alert & Oriented to Patient Baseline) Airway and Respiratory Function: Patent airway with normal (patient baseline) respiratory exam Cardiovascular Function: Hemodynamically Stable Hydration Status: Adequately Hydrated Nausea & Vomiting: No Nausea or Vomiting Pain: Pain is tolerable per patient Peripheral Nerve Block: Patient did not receive a nerve block
[2023-08-09] MEDS: HYDROmorphone 2 MG/ML SYR 0.5 MG IVP (20:25)
[2023-08-09] MEDS: traMADol 50 MG TAB PO (20:26)
[2023-08-09] MEDS: Tamsulosin 0.4 MG CAPCR PO (20:26)
[2023-08-09] MEDS: Atorvastatin 20 MG TAB PO (21:36)
[2023-08-09] MEDS: Finasteride 5 MG TAB PO (21:36)
[2023-08-09] MEDS: dilTIAZem CD 120 MG CAPCR 240 MG PO (21:36)
[2023-08-09] MEDS: Naproxen 250 MG TAB PO (21:37)
[2023-08-09] MEDS: Lisinopril 20 MG TAB 40 MG PO (21:37)
[2023-08-09] MEDS: Acetaminophen 500 MG TAB 1000 MG PO (22:15)
[2023-08-09] MEDS: Melatonin 3 MG TAB 9 MG PO (22:15)
[2023-08-09] MEDS: Omeprazole 20 MG CAPCR 40 MG PO (22:15)
[2023-08-10] VITALS (9 sets, daily range): BP systolic 94–112; BP diastolic 50–71; PULSE 48–63; RESP 15–18; TEMP 36–36.6; O2SAT 93–97
[2023-08-10] MEDS: Lactated Ringers 1,000 ML 30 ML IV
[2023-08-10] MEDS: ceFAZolin 1 GM/50 ML BAG IVPB ×2 (02:40→09:54)
[2023-08-10] MEDS: Protein Nutritional Supplement 16 GM 1 OUNCE PACKET PO (07:49)
[2023-08-10] MEDS: Aspirin E.C. 325 MG TABEC PO (07:50)
[2023-08-10] MEDS: metFORMIN 500 MG TAB 1000 MG PO (07:50)
[2023-08-10] MEDS: Furosemide 40 MG TAB PO (07:51)
[2023-08-10] MEDS: Lactobacillus Acidophilus CAP 1 CAP PO (07:51)
[2023-08-10] MEDS: Tamsulosin 0.4 MG CAPCR PO (07:51)
[2023-08-10] MEDS: Fluticasone NASAL SPRAY 16 GM BTL NS (08:41)
--- NOTE | 2023-08-10 09:19 | PDOC.CMIN ---
Date of service: 08/10/23 Time of Service: 09:19 Care Management Initial Assmt Initial Assessment Reason for Hospitalization: delayed union of hip fracture Functional Status/Living Situation Town of Residence: [place], [place] Medications Medication Management: No Issues/Barriers identified Advance Directives Advance Directives: Do you have an Advance Directive: N 03/07/23 22:35 AD On File at [facility]: N 03/07/23 22:35 Date Asked 08/07/23 08/07/23 10:37 AD Date Reviewed 08/09/23 08/09/23 20:11 COLST On File at [facility] No 03/07/23 22:35 COLST Date Scanned Code Status Resuscitation Status Full Code Portal Pt does not currently have a portal and education provided: No Portal Education: Other (not local) Insurance Coverage/Financial Issues Insurance: Medicare Advantage ACO Member: No Care Team Visit Care Team Role Provider Type Margarette Kumar Primary Care Provider NON-[facility] STAFF PHYSICIAN InPatient Genaro Betancourt Other Providers OTHER Christopher Hernadez MD Admit Provider [facility] STAFF PHYSICIAN Attending Provider Discharge Potential Discharge Needs: PCP F/U Appt and Surgical F/U Appt Anticipated Barriers to Discharge: Medical Status Patient/Family Education Needs: Review discharge instructions, discuss Ask Me Three Transportation: Private vehicle Plan: Anticipate Jairo will discharge home with no new services. He will follow up with his PCP, surgeon and plan of care and transport with family. CM will follow and continue to support discharge needs. 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 (Acute) Painful orthopaedic hardware (Acute) Right patella fracture (Acute) Fracture of greater trochanter of right femur (Acute) Fracture of left distal radius (Acute 03/07/23) Displaced intertrochanteric fracture of left femur (Acute 03/07/23) Hypertension (Chronic) BPH loc w urin obs/LUTS (Acute) Type 2 diabetes mellitus (Acute) COPD (chronic obstructive pulmonary disease) (Chronic) Hip fracture, left (Acute) Medical History (Updated 08/10/23 @ 00:01 by ROBERTO MAS) CALLY (obstructive sleep apnea) GERD (gastroesophageal reflux disease) Surgical History History of cerebral aneurysm repair 2005 History of gastric bypass Family History Sister Cerebral aneurysm Social History (Updated 03/08/23 @ 00:16 by Nehemiah Anna) Smoking/Tobacco Use Status: Former Tobacco Use Quit Date: 02/12/04 Tobacco: How many years used: 30 Smoking risk assessment performed?: Yes Alcohol Intake: former Drug use: Never Substance use type: does not use Housing: house Additional Social history: [facility] SDOH(Care Management) Screening Will the Patient Participate in the Screening?: Yes Do you worry about having a steady place to live?: no Problems where you live: no known problems In the past 12 months, have you had to go without electric, gas, oil or water in your home?: no Have you or anyone in your house had to go without enough food to eat?: no Has lack of transportation kept you from medical appointments or from doing things needed for daily living?: no Has anyone in your support network made you feel unsafe for any reason?: no
--- NOTE | 2023-08-10 10:21 | IN_ITS ---
Date of service: 08/10/23 Time of Service: 08:15 PT Notes Inpatient Physical Therapy Evaluation Date: 08/10/2023 Referring Doctor: Dr. Hernadez PT Orders: PT CONSULT: following ortho surgery on L hip Precautions: WBAT LLE Patient Profile/Admitting Diagnosis: Closed fx of L hip with nonunion Social History/Home Situation: Lives with in [place], [place]. Has a ramp to enter his home which and is able to live on one floor. Has a rollator that he uses at baseline. Current Functional Limitations: Prior to his surgery patient was having a lot of left hip pain during any form of standing/walking activities which caused him to have a significant limp. His is still working so he had to be independent in his home throughout his day. Equipment Owned/DME: Already has a rollator Subjective: Pt about 5 months s/p L hip surgery and continued to have pain. It was discovered that his hardware was not healing properly and needed surgical intervention. He is currently semi-supine in his hospital bed feeling good with no complaints. He would like to get home today. Objective: General Observation: No distress, just finished breakfast Mental Status: A+Ox4 Pain: Well controlled ROM: Able to perform heel slide on LLE to about 90 degrees in the bed Bilat UEs full AROM Strength: Able to perform SLR bilat w/o difficulty, able to perform LAQ and active DF/PF bilat while seated at EOB Sensation: Full Bed Mobility/Transfers: SBA for supine to sit, sit to supine CGA for sit to stand, stand to sit Gait: CGA for amb w/RW 75 ft demonstrating step through gait cycle and minimal UE support on RW Compliant with WBAT status Balance: Able to perform shoulder width stance w/o UE support on RW for >10 second Did not attempt further balance testing Special Tests: Mobility Limitations Standardized Measure [facility] AM-PAC 6 clicks Basic Mobility Inpatient Short Form: Raw Score: 21 Standardized Score: 4.69 CMS Score: CJ Informed Consent/Education: Patient instructed in purpose of PT consult and plan of care. Assessment: Patient is a 73 year old male referred to physical therapy services following ortho surgery on his L hip. He is currently functioning well and is able to go home with the support of his . He is able to actively lift his leg which is making him able to transfer and ambulate fairly well. He will not have to manage any stairs to get into his home so they were not attempted today. He was SBA for all forms of bed mobility and CGA for ambulatory activities. He can be d/c'd to home safely when medically cleared. Recommended outpatient PT in the future. Patient is assessed as a [x] Low 15701 based on the following: History: Low Examination: Low Presentation: Low Decision Making: Low Goals: No goals indicated as patient is being d/c'd to home shortly. He has reached all goals necessary to going home at this time. Plan of Care/Treatment Plan: D/c PT DISCHARGE RECOMMENDATIONS: I do recommended outpatient PT in the near future. [x] Home with outpatient PT TREATMENT CODE/TIME: 45 min Please sign an return this page within 30 days if you agree with the above POC. Thank you! Physician Signature Date [facility]
--- NOTE | 2023-08-10 12:47 | CMPROGNOTE_ITS ---
Date of service: 08/10/23 Time of Service: 12:47 Care Management Progress Note Progress Note Text Progress Note Text: Jairo was admitted on 08/09/23 for hip surgery to revise a left hip nail with non- union. He did well post-0operatively and will be discharged home with no new services. He will follow up with the Orthopedic service and begin PT after his follow up visit. Discharge Potential Discharge Needs: Surgical F/U Appt (Ortho) Anticipated Barriers to Discharge: None Identified Patient/Family Education Needs: Review discharge instructions, discuss Ask Me Three Transportation: Private vehicle Plan: Jairo will be discharged home with outpatient follow up with his orthopedic surgeon. No new services needed. He will transport with family via private vehicle. SDOH(Care Management) Screening Will the Patient Participate in the Screening?: Yes Do you worry about having a steady place to live?: no Problems where you live: no known problems In the past 12 months, have you had to go without electric, gas, oil or water in your home?: no Have you or anyone in your house had to go without enough food to eat?: no Has lack of transportation kept you from medical appointments or from doing things needed for daily living?: no Has anyone in your support network made you feel unsafe for any reason?: no
== END 2023-08-10 12:39 | disposition home or self-care (01) | DRG 481 ==
LOC: PDS 17:10 → MS 20:08
PROVIDERS: Admitting Provider Student in an Organized Health Care Education/Training Program; PCP Family Medicine; Visit Provider Student in an Organized Health Care Education/Training Program
PROC: 0QS706Z Reposition Left Upper Femur with Intramedullary Internal Fixation Device, Open Approach (ICD-10-PCS; CPT 27245; principal; 2023-08-09 15:15)
DX: T84.84XA Pain due to internal orthopedic prosthetic devices, implants and grafts, initial encounter; S72.142K Displaced intertrochanteric fracture of left femur, subsequent encounter for closed fracture with nonunion; I10 Essential (primary) hypertension; J44.9 Chronic obstructive pulmonary disease, unspecified; N40.1 Benign prostatic hyperplasia with lower urinary tract symptoms; G47.33 Obstructive sleep apnea (adult) (pediatric); K21.9 Gastro-esophageal reflux disease without esophagitis; Z98.84 Bariatric surgery status; Z87.891 Personal history of nicotine dependence
CPT/HCPCS: 27245; 20680; 97161; 73501; J0131; J0690; J1100; J1170; J2001; J2250; J2371; J2405; J2704; J3010

== ENCOUNTER 2023-08-20 15:04 | Outpatient (CLI) | payer MEDICARE, SELFPAY ==
--- NOTE | 2023-08-20 10:00 | DI.RAD_ITS ---
Exam(s) XR HIP LT AP LAT ONLY EXAM: XR HIP LT AP LAT ONLY INDICATION: F/U HIP FX. COMPARISON: CR XR HIP LT AP LAT ONLY from 07/16/2023 XA XR HIP LT IN OR from 08/09/2023 TECHNIQUE: 2D digital imaging was performed. Two views. FINDINGS: There has been no change in fracture alignment. No new abnormalities. DATA REPOSITORY: RADIATION DOSE DELIVERED:
== END 2023-08-20 15:05 | disposition home or self-care (01) ==
LOC: DIORS 15:04
PROVIDERS: PCP Family Medicine; Visit Provider Physician Assistant
DX: S72.002K Fracture of unspecified part of neck of left femur, subsequent encounter for closed fracture with nonunion (principal); T84.84XD Pain due to internal orthopedic prosthetic devices, implants and grafts, subsequent encounter
CPT/HCPCS: 73502

== ENCOUNTER 2023-09-11 11:16 | Outpatient (CLI) | payer MEDICARE, SELFPAY ==
--- NOTE | 2023-09-11 10:30 | DI.RAD_ITS ---
Exam(s) XR HIP PELVIS ADULT BL EXAM: XR HIP PELVIS ADULT BL CLINICAL HISTORY: F/U FRACTURE. TECHNIQUE: 2D digital imaging was performed. Three views. COMPARISON: CR XR HIP LT AP LAT ONLY from 08/20/2023 FINDINGS: BONES: Hardware again noted in the proximal left femur. No change in alignment. Fracture line remai ns faintly visible. No acute fracture is present. No bony destructive lesion is seen. JOINTS: No dislocation present. Mild bilateral hip joint space narrowing and acetabular spurring. SI joints and pubic symphysis are unremarkable. SOFT TISSUE: Catheter in bladder. IMPRESSION: Stable on left femoral fracture and hardware alignment. Mild degenerative changes of both hips. DATA REPOSITORY: RADIATION DOSE DELIVERED:
--- NOTE | 2023-09-11 10:30 | DI.RAD_ITS ---
Exam(s) XR KNEE RT 3V AP,LAT,SHAJI EXAM: XR KNEE RT 3V AP,LAT,SHAJI CLINICAL HISTORY: F/U FRACTURE. TECHNIQUE: 2D digital imaging was performed. Three views. COMPARISON: CR XR KNEE 3 VIEW RIGHT from 04/11/2023 CR XR KNEE RT 2V AP,LAT from 06/26/2023 FINDINGS: BONES: No change in alignment of the fracture at the lateral aspect of the patella. Only minimal bon y bridging. No bony destructive lesion is seen. JOINTS: Moderate narrowing of the medial femoral tibial joint and periarticular spurring. Spurring a t the tibial spines and articular aspect of the patella. No joint effusion is seen. SOFT TISSUE: Vascular calcifications IMPRESSION: Stable alignment of patellar fracture DATA REPOSITORY: RADIATION DOSE DELIVERED:
== END 2023-09-11 11:17 | disposition home or self-care (01) ==
LOC: DIORS 11:16
PROVIDERS: PCP Family Medicine; Referring Provider Family Medicine; Visit Provider Student in an Organized Health Care Education/Training Program
DX: S72.002K Fracture of unspecified part of neck of left femur, subsequent encounter for closed fracture with nonunion (principal); X58.XXXD Exposure to other specified factors, subsequent encounter
CPT/HCPCS: 73521; 73562

== ENCOUNTER 2023-10-09 12:45 | Outpatient (CLI) | payer MEDICARE, SELFPAY ==
--- NOTE | 2023-10-09 10:40 | DI.RAD_ITS ---
Exam(s) XR HIP LT AP LAT ONLY EXAM: XR HIP LT AP LAT ONLY CLINICAL HISTORY: F/U FRACTURE. TECHNIQUE: 2D digital imaging was performed. COMPARISON: CR XR HIP PELVIS ADULT BL from 09/11/2023 FINDINGS: Two views Again noted is ORIF hardware across the intertrochanteric fracture site in the left hip. Position ap pears stable. There is no evidence of hardware fracture nor loosening. Fracture line is still visib le on the lateral view. Mild ipsilateral hip joint space narrowing is noted Catheter is noted in the urinary bladder. IMPRESSION: Stable appearance DATA REPOSITORY: RADIATION DOSE DELIVERED:
--- NOTE | 2023-10-09 10:51 | DI.RAD_ITS ---
Exam(s) XR KNEE RT 1V EXAM: XR KNEE RT 1V CLINICAL HISTORY: F/U FRACTURE. TECHNIQUE: 2D digital imaging was performed. COMPARISON: CR XR KNEE RT 3V AP,LAT,SHAJI from 09/11/2023 FINDINGS: Single merchant's view Previously described vertical fracture in the lateral aspect of the patella is again noted fracture l ine is slightly less evident but still visible. No further displacement evident at the fracture site . There is no prepatellar soft tissue swelling. IMPRESSION: Stable appearance DATA REPOSITORY: RADIATION DOSE DELIVERED:
== END 2023-10-09 12:46 | disposition home or self-care (01) ==
LOC: DIORS 12:45
PROVIDERS: PCP Family Medicine; Referring Provider Family Medicine; Visit Provider Student in an Organized Health Care Education/Training Program
DX: S82.001D Unspecified fracture of right patella, subsequent encounter for closed fracture with routine healing (principal); T84.84XD Pain due to internal orthopedic prosthetic devices, implants and grafts, subsequent encounter; S72.002K Fracture of unspecified part of neck of left femur, subsequent encounter for closed fracture with nonunion
CPT/HCPCS: 73502; 73560

== ENCOUNTER 2023-12-11 09:45 | Outpatient (CLI) | payer MEDICARE, SELFPAY ==
--- NOTE | 2023-12-11 09:30 | DI.RAD_ITS ---
Exam(s) XR PELVIS AP XR HIP LT AP LAT ONLY EXAM: XR HIP LT AP LAT ONLY INDICATION: F/U FRACTURE. COMPARISON: CR XR HIP LT AP LAT ONLY from 10/09/2023 CR XR PELVIS AP from 12/11/2023 TECHNIQUE: 2D digital imaging was performed. Three views. FINDINGS: Stable alignment of proximal femoral hardware. Continued healing of the intertrochanteric fracture. No new abnormalities. The right hip joint space is maintained. Mild acetabular spurring. Bladder catheter present. DATA REPOSITORY: RADIATION DOSE DELIVERED:
== END 2023-12-11 09:46 | disposition home or self-care (01) ==
LOC: DIORS 12-12 07:57
PROVIDERS: PCP Family Medicine; Referring Provider Family Medicine; Visit Provider Student in an Organized Health Care Education/Training Program
DX: S72.111D Displaced fracture of greater trochanter of right femur, subsequent encounter for closed fracture with routine healing (principal); S72.142D Displaced intertrochanteric fracture of left femur, subsequent encounter for closed fracture with routine healing; X58.XXXD Exposure to other specified factors, subsequent encounter
CPT/HCPCS: 72170; 73502

== ENCOUNTER 2023-12-19 02:11 | Outpatient (CLI) | payer MEDICARE, SELFPAY ==
--- NOTE | 2023-12-19 07:00 | DI.CT_ITS ---
Exam(s) CT LOWER EXTREMITY LT WO EXAM: CT LOWER EXTREMITY LT WO CLINICAL HISTORY: EVALUATE HEALING,closed fx lt hip with nonunion,s72.002k. TECHNIQUE: Imaging Protocol: Axial computed tomography images with coronal and sagittal reformatted images were created and reviewed. COMPARISON: CT CT LOWER EXTREMITY LT WO from 07/30/2023 CR XR HIP LT AP LAT ONLY from 12/11/2023 CR XR PELVIS AP from 12/11/2023 FINDINGS: Bones: There is again seen an intramedullary jeancarlos transfixing the intertrochanteric fracture of the l eft femur. The fracture line is still visualized particularly anteriorly and superiorly. No bridgin g callus formation is present. No suspicious lucencies seen around the orthopedic hardware. There i s no new fracture or dislocation. Degenerative changes are seen in the hip characterized by joint sp maia narrowing and acetabular osteophytes. Soft Tissues: The patient has a Schilling catheter in place. There is diverticulosis of the colon withou t evidence of diverticulitis. Atherosclerotic calcification is present. There is mild muscular fatt y atrophy seen around the left hip. IMPRESSION: Intertrochanteric fracture of the left hip with persistent visualization of the fracture line particu larly anteriorly and superiorly suggesting nonunion. RADIATION DOSE DELIVERED: 421.76mGy.cm Total DLP 421.76mGy.cm Total DLP DATA REPOSITORY: All CT scans at this facility are submitted to the National Radiology Data Registry (NRDR) Dose Index Registry (DIR) with the [employer] ([employer]). RADIATION OPTIMIZATION: All CT scans at this facility use at least one of these dose optimization te chniques: automated exposure control; mA and/or kV adjustment per patient size (includes targeted exa ms where dose is matched to clinical indication); or iterative reconstruction.
== END 2023-12-19 02:31 ==
PROVIDERS: PCP Family Medicine; Visit Provider Student in an Organized Health Care Education/Training Program
DX: S72.142A Displaced intertrochanteric fracture of left femur, initial encounter for closed fracture (principal); X58.XXXA Exposure to other specified factors, initial encounter
CPT/HCPCS: 73700